=== PATIENT | male | born 1950 | race Caucasian/White ===

== ENCOUNTER → 2017-01-21 | Outpatient (CLI) | payer MEDICARE, BC, OTHER ==
--- NOTE | 2017-01-21 11:57 | ECGEPIP ---
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
[2017-01-21 12:07] LABS: ANION GAP 10 MEQ/L (8-16); BLOOD UREA NITROGEN 17 MG/DL (7-18); CARBON DIOXIDE LEVEL 28 MEQ/L (21-32); CHLORIDE LEVEL 103 MEQ/L (98-107); CREATININE FOR GFR 1.02 MG/DL (0.70-1.30); GLOMERULAR FILTRATION RATE > 60.0 (>49); GLUCOSE, FASTING 162 MG/DL (80-110); POTASSIUM SERUM 4.4 MEQ/L (3.5-5.1); SODIUM LEVEL 141 MEQ/L (136-145)
== END ==
LOC: M LAB 10:38
PROVIDERS: ATTEND Ophthalmology
DX: Z01.818 Encounter for other preprocedural examination (principal); H25.12 Age-related nuclear cataract, left eye; I48.91 Unspecified atrial fibrillation

== ENCOUNTER → 2017-02-12 | Day surgery (SDC) | payer MEDICARE, BC, OTHER ==
[~2017-02-12] VITALS: Ht 170.2 cm; Wt 83.9 kg
[~2017-02-12] MED LIST: ACETYLCHOLINE OPHTH SOLN 1% 2ML As Ordered ONE; AMLO5TAB2 PO; ATOR1TAB21 PO; BALANCED SALT IRRIGATION SOLUTION 500ML BAG (FOR OR EYE MACHINE) As Ordered ONE; CARV12.5 PO; CEFUROXIME 1MG/0.1ML INTRACAMERAL INJ As Ordered ONE; D5W/0.2% SODIUM CHLORIDE 1,000 ML IV SCH; DIGO0.12 PO; ELIQ5TAB PO; HEALON DUET (HEALON 10MG/ML 0.55ML & HEALON ENDOCOAT 30MG/ML 0.85ML) As Ordered ONE; LIDOCAINE 0.75%/EPINEPHRINE 0.025% IN BSS 1ML SYR INTRACAMERAL (OR ONLY) As Ordered ONE; LISI10TA4 PO; MIDAZOLAM INJ 2 MG/2 ML VIAL (J2250) As Ordered ONE; OFLOXACIN 0.3 % (OCUFLOX) OPTH SOL 5ML OS ONE; PANT40TA2 PO; PARO10TA84 PO; PHENYLEPHRINE 2.5% OPHTH SOL 2ML OS ONE; POVIDONE-IODINE 5% OPHTH PREP SOL 30ML As Ordered ONE; PROA1AER INH; PROPARACAINE 0.5% OPHTH SOL 15ML OS ONE; QVAR0.07 IN; TOBRADEX OPHTH OINT 3.5 GM As Ordered ONE; TROPICAMIDE 1% OPHTH SOLN 2 ML OS ONE; VITA50003 PO; fentaNYL 100 MCG/2 ML INJECTION (J3010) As Ordered ONE
[2017-02-12 12:30] VITALS: BP 135/81
--- NOTE | 2017-02-12 18:21 | RO ---
DATE OF PROCEDURE: 02/12/2017 PREOPERATIVE DIAGNOSIS: Visually significant nuclear sclerotic cataract left eye. POSTOPERATIVE DIAGNOSIS: Visually significant nuclear sclerotic cataract left eye. PROCEDURE: Cataract extraction with use of phacoemulsification and placement of intraocular lens Jose Luis [id number] 21.5 diopters, left eye. SURGEON: Guy Chen DO CHANNELING MACHINE RUNNER: ANESTHESIA: Local with monitored anesthesia care (MAC). COMPLICATIONS: None. POSTOPERATIVE CONDITION: Stable. INDICATION FOR SURGERY: Blurred vision left eye affecting patient's activities of daily living. DESCRIPTION OF PROCEDURE: The patient was seen in the preoperative area and properly identified. The correct operative eye was identified and marked. Attention was turned to that eye. The patient received topical antibiotics in the preoperative area. The patient then received topical dilating drops consisting of tropicamide and phenylephrine. The patient was then transferred to the operating room. The correct side was reidentified. The patient received topical anesthetics and antibiotics on the surface of the eye. The eye was prepped and draped in a sterile fashion. The upper and lower eyelids were isolated with Tegaderm tape, and the lids were held open with an adjustable speculum. Using a sideport blade, a paracentesis incision was made. Intraocular preservative-free lidocaine was then injected into the anterior chamber. Viscoelastic was then injected into the anterior chamber through the paracentesis. Using a 2.65 mm sharp-tipped keratome, the anterior chamber was entered via a temporal clear corneal incision. A continuous curvilinear capsulorrhexis was created with the aid of a 26-gauge cystotome and Utrata forceps. Hydrodissection was performed with balanced salt solution (BSS) on a blunt cannula until the nucleus was freely mobile. The crystalline lens was phacoemulsified and aspirated. Additional cohesive viscoelastic was placed into the capsular bag to deepen it. A Jose Luis [id number] 21.5 diopter lens was placed into the capsular bag and confirmed by visualizing the continuous curvilinear capsulorrhexis. Additional irrigation and aspiration was used to remove cortical material and remaining viscoelastic. The clear corneal incision was hydrated with BSS on a blunt cannula. The lens was well positioned. The incisions were then tested for leaks and found to be negative. The eye was then palpated for appropriate pressure and adjusted accordingly with BSS. Cefuroxime, 0.5cc was placed into the anterior chamber. The eyelid speculum was then carefully removed. Tobradex ointment was placed in the eye. An eye patch and shield were then secured over the eye. The patient tolerated the procedure well and was discharged to the recovery unit in a stable condition. LEI
== END | disposition home or self-care (01) ==
LOC: M SDC 09:42
PROVIDERS: ATTEND Ophthalmology
DX: H25.12 Age-related nuclear cataract, left eye (principal); J45.909 Unspecified asthma, uncomplicated; G47.33 Obstructive sleep apnea (adult) (pediatric); E78.5 Hyperlipidemia, unspecified; E11.9 Type 2 diabetes mellitus without complications; K21.9 Gastro-esophageal reflux disease without esophagitis; F41.9 Anxiety disorder, unspecified; F32.9 Major depressive disorder, single episode, unspecified; J30.9 Allergic rhinitis, unspecified; G47.00 Insomnia, unspecified; I48.91 Unspecified atrial fibrillation; I10 Essential (primary) hypertension; E55.9 Vitamin D deficiency, unspecified; M12.9 Arthropathy, unspecified; R06.83 Snoring; Z79.899 Other long term (current) drug therapy; Z87.891 Personal history of nicotine dependence
CPT/HCPCS: 66984; J2250; J3010; V2632

== ENCOUNTER → 2017-06-27 | Outpatient (CLI) | payer MEDICARE, BC, OTHER ==
[~2017-06-27] MED LIST changes: -ACETYLCHOLINE OPHTH SOLN 1% 2ML As Ordered ONE; -BALANCED SALT IRRIGATION SOLUTION 500ML BAG (FOR OR EYE MACHINE) As Ordered ONE; -CEFUROXIME 1MG/0.1ML INTRACAMERAL INJ As Ordered ONE; -D5W/0.2% SODIUM CHLORIDE 1,000 ML IV SCH; -HEALON DUET (HEALON 10MG/ML 0.55ML & HEALON ENDOCOAT 30MG/ML 0.85ML) As Ordered ONE; -LIDOCAINE 0.75%/EPINEPHRINE 0.025% IN BSS 1ML SYR INTRACAMERAL (OR ONLY) As Ordered ONE; -MIDAZOLAM INJ 2 MG/2 ML VIAL (J2250) As Ordered ONE; -OFLOXACIN 0.3 % (OCUFLOX) OPTH SOL 5ML OS ONE; +PARO10TA3 PO; -PARO10TA84 PO; -PHENYLEPHRINE 2.5% OPHTH SOL 2ML OS ONE; -POVIDONE-IODINE 5% OPHTH PREP SOL 30ML As Ordered ONE; -PROA1AER INH; +PROAAER10 INH; -PROPARACAINE 0.5% OPHTH SOL 15ML OS ONE; -TOBRADEX OPHTH OINT 3.5 GM As Ordered ONE; -TROPICAMIDE 1% OPHTH SOLN 2 ML OS ONE; +VITA1CAP40 PO; -VITA50003 PO; -fentaNYL 100 MCG/2 ML INJECTION (J3010) As Ordered ONE
[2017-06-27 20:20] LABS: ANION GAP 9 MEQ/L (8-16); BLOOD UREA NITROGEN 17 MG/DL (7-18); CALCIUM LEVEL 9.2 MG/DL (8.8-10.2); CARBON DIOXIDE LEVEL 30 MEQ/L (21-32); CHLORIDE LEVEL 101 MEQ/L (98-107); CHOLESTEROL LEVEL 187 MG/DL (<200); CREATININE FOR GFR 0.94 MG/DL (0.70-1.30); GLOMERULAR FILTRATION RATE > 60.0 (>49); GLUCOSE, FASTING 112 MG/DL (80-110); POTASSIUM SERUM 4.8 MEQ/L (3.5-5.1); SODIUM LEVEL 140 MEQ/L (136-145); TRIGLYCERIDES LEVEL 403 MG/DL (<150)
== END ==
LOC: M ADAMS 13:31
PROVIDERS: ATTEND Physician Assistant Medical
DX: E11.9 Type 2 diabetes mellitus without complications (principal)

== ENCOUNTER → 2017-08-06 | Outpatient (REF) | payer MEDICARE, BC, OTHER | LOC: M LAB REF 12:12 | PROVIDERS: ATTEND Surgery | DX: L72.3 Sebaceous cyst (principal) ==

== ENCOUNTER → 2017-12-29 | Outpatient (REF) | payer MEDICARE, BC, OTHER ==
[2017-12-29 20:06] LABS: BASO % 0.2 % (0.0-1.0); EOS # 0.1 10^3/uL (0.0-0.50); EOS % 1.2 % (0.0-3.0); HEMATOCRIT 45.2 % (42.0-52.0); HEMOGLOBIN 15.1 g/dl (14.0-18.0); IMMATURE GRANULOCYTE # 0.1 10^3/uL (0-0); IMMATURE GRANULOCYTE % 0.7 % (0-0); LYMPH # 1.9 10^3/uL (1.5-4.5); LYMPH % 21.4 % (24.0-44.0); MEAN CORPUSCULAR HEMOGLOBIN 29.5 pg (27.0-33.0); MEAN CORPUSCULAR HGB CONC 33.4 g/dl (32.0-36.5); MEAN CORPUSCULAR VOLUME 88.3 fl (80.0-96.0); MONO # 0.6 10^3/uL (0.0-0.8); MONO % 7.1 % (0.0-5.0); NEUTROPHILS # 6.3 10^3/uL (1.8-7.7); NEUTROPHILS % 69.4 % (36.0-66.0); PLATELET COUNT, AUTOMATED 260 10^3/uL (150-450); RED BLOOD COUNT 5.12 10^6/uL (4.30-6.10); RED CELL DISTRIBUTION WIDTH 12.6 % (11.5-14.5)
[2017-12-29 20:22] LABS: ANION GAP 5 MEQ/L (8-16); BLOOD UREA NITROGEN 14 MG/DL (7-18); CALCIUM LEVEL 8.9 MG/DL (8.8-10.2); CARBON DIOXIDE LEVEL 33 MEQ/L (21-32); CHLORIDE LEVEL 102 MEQ/L (98-107); CREATININE FOR GFR 1.02 MG/DL (0.70-1.30); GLOMERULAR FILTRATION RATE > 60.0 (>49); GLUCOSE, FASTING 165 MG/DL (70-100); POTASSIUM SERUM 4.9 MEQ/L (3.5-5.1); SODIUM LEVEL 140 MEQ/L (136-145)
[2017-12-29 20:35] LABS: ESTIMATED AVERAGE GLUCOSE 163 MG/DL (60-110); HEMOGLOBIN A1c 7.3 %
[2017-12-29 21:02] LABS: MAU/CREAT RATIO 64.7 MCG/MG (0.0-30.0)
== END ==
LOC: M LABDRWAD 19:36
DX: E78.5 Hyperlipidemia, unspecified (principal); E11.9 Type 2 diabetes mellitus without complications; Z79.899 Other long term (current) drug therapy
CPT/HCPCS: 83036

== ENCOUNTER → 2018-06-21 | Outpatient (CLI) | payer MEDICARE, BC, OTHER ==
[2018-06-21 20:34] LABS: ANION GAP 8 MEQ/L (8-16); BLOOD UREA NITROGEN 18 MG/DL (7-18); CALCIUM LEVEL 9.1 MG/DL (8.8-10.2); CARBON DIOXIDE LEVEL 30 MEQ/L (21-32); CHLORIDE LEVEL 103 MEQ/L (98-107); CHOLESTEROL LEVEL 170 MG/DL (<200); CHOLESTEROL RISK RATIO 3.695 (<5); CREATININE FOR GFR 1.36 MG/DL (0.70-1.30); GLOMERULAR FILTRATION RATE 55.8 (>49); GLUCOSE, FASTING 92 MG/DL (70-100); HDL CHOLESTEROL 46 MG/DL (>40); LDL CHOLESTEROL 58.8 MG/DL (<100); NON-HDL-C 124 MG/DL; POTASSIUM SERUM 4.1 MEQ/L (3.5-5.1); SODIUM LEVEL 141 MEQ/L (136-145); TRIGLYCERIDES LEVEL 326 MG/DL (<150)
[2018-06-21 20:37] LABS: ESTIMATED AVERAGE GLUCOSE 163 MG/DL (60-110); HEMOGLOBIN A1c 7.3 %
[2018-06-22 13:21] LABS: MALB URINE SIEMENS 30.6 MG/L; MAU/CREAT RATIO 16.1 MCG/MG (0.0-30.0)
== END ==
LOC: M ADAMS 15:10
DX: E11.9 Type 2 diabetes mellitus without complications (principal); I10 Essential (primary) hypertension; E78.5 Hyperlipidemia, unspecified
CPT/HCPCS: 83036

== ENCOUNTER → 2018-09-23 | Outpatient (REF) | payer MEDICARE, BC, OTHER ==
[2018-09-23 14:51] LABS: ANION GAP 7 MEQ/L (8-16); BLOOD UREA NITROGEN 14 MG/DL (7-18); CALCIUM LEVEL 8.8 MG/DL (8.8-10.2); CARBON DIOXIDE LEVEL 32 MEQ/L (21-32); CHLORIDE LEVEL 101 MEQ/L (98-107); CHOLESTEROL LEVEL 188 MG/DL (<200); CHOLESTEROL RISK RATIO 4.177 (<5); CREATININE FOR GFR 0.94 MG/DL (0.70-1.30); GLOMERULAR FILTRATION RATE > 60.0 (>49); GLUCOSE, FASTING 177 MG/DL (70-100); HDL CHOLESTEROL 45 MG/DL (>40); LDL CHOLESTEROL 88 MG/DL (<100); NON-HDL-C 143 MG/DL; POTASSIUM SERUM 4.3 MEQ/L (3.5-5.1); SODIUM LEVEL 140 MEQ/L (136-145); TRIGLYCERIDES LEVEL 276 MG/DL (<150)
[2018-09-23 14:58] LABS: ESTIMATED AVERAGE GLUCOSE 180 MG/DL (60-110); HEMOGLOBIN A1c 7.9 %
== END ==
LOC: M LABDRWAD 14:34
DX: E11.69 Type 2 diabetes mellitus with other specified complication (principal); E78.5 Hyperlipidemia, unspecified; I10 Essential (primary) hypertension
CPT/HCPCS: 83036

== ENCOUNTER → 2018-12-28 | Outpatient (REF) | payer MEDICARE, OTHER ==
[~2018-12-28] MED LIST changes: -AMLO5TAB2 PO; +AMLO5TAB6 PO; -PANT40TA2 PO; +PANT40TA3 PO; -QVAR0.07 IN; +QVAR40AE13 IN; -VITA1CAP40 PO; +VITA50005 PO
[2018-12-28 20:04] LABS: BLOOD UREA NITROGEN 15 MG/DL (7-18); CALCIUM LEVEL 9.1 MG/DL (8.8-10.2); CARBON DIOXIDE LEVEL 30 MEQ/L (21-32); CHLORIDE LEVEL 102 MEQ/L (98-107); CREATININE FOR GFR 0.97 MG/DL (0.70-1.30); GLOMERULAR FILTRATION RATE > 60.0 (>49); GLUCOSE, FASTING 152 MG/DL (70-100); SODIUM LEVEL 139 MEQ/L (136-145)
[2018-12-28 20:22] LABS: HEMOGLOBIN A1c 7.2 %
== END ==
LOC: M LABDRWAD 18:53
PROVIDERS: ATTEND Physician Assistant Medical
DX: E11.69 Type 2 diabetes mellitus with other specified complication (principal)

== ENCOUNTER 2019-03-08 10:42 | Day surgery (SDC) | payer MEDICARE, OTHER, BC ==
[~2019-03-08] VITALS: Ht 170.2 cm; Wt 82.1 kg
[~2019-03-08 10:42] MED LIST changes: +JANU100T PO; +NS 1,000 ML IV ONE; +QVAR40AE12 INH
[2019-03-08] MEDS ORDERED: LIDOCAINE 2% INJ 100 MG/5 ML SDV (FOR ANES.) As Ordered ONE (11:48)
[2019-03-08] MEDS ORDERED: PROPOFOL 200 MG/20 ML VIAL As Ordered ONE (11:48)
[2019-03-08] MEDS ORDERED: METOPROLOL 5 MG/5 ML VIAL As Ordered ONE (12:06)
--- NOTE | 2019-03-08 12:22 | ROOR ---
Patient Name: Zhou Dinh Procedure Date: 03/08/2019 12:03 PM Date of : 1950 Age: 69 Room: [facility] Gender: Male Note Status: Finalized Procedure: Upper Endoscopy + Biopsies Indications: Dysphagia, Heartburn, Exclusion of Chavez's esophagus Providers: Anuj Chen MD Referring MD: MESSI JONES Requesting Provider: Medicines: Monitored Anesthesia Care Complications: No immediate complications. Procedure: Pre-Anesthesia Assessment: - The heart rate, respiratory rate, oxygen saturations, blood pressure, adequacy of pulmonary ventilation, and response to care were monitored throughout the procedure. The Endoscope was introduced through the mouth, and advanced to the second part of duodenum. The upper GI endoscopy was accomplished without difficulty. The patient tolerated the procedure well. Findings: The Z-line was variable and was found 38 cm from the incisors. Multiple biopsies were obtained with cold forceps for evaluation to rule out Chavez's Esophagus randomly at the gastroesophageal junction. A small hiatal hernia was present. Multiple medium pedunculated and sessile fundic gland polyps with no stigmata of recent bleeding were found in the stomach. Biopsies were taken with a cold forceps for histology. The exam of the duodenum was otherwise normal. Impression: - Z-line variable, 38 cm from the incisors. - Small hiatal hernia. - Multiple fundic gland polyps. Biopsied. - Multiple biopsies were obtained at the gastroesophageal junction. - The examination was otherwise normal. Recommendation: - Await pathology results. - Discharge patient to home. - Continue present medications. - Await pathology results. - Telephone GI clinic for pathology results in 1 week. - Return to referring physician. - Follow an antireflux regimen. - Check Portal Online for Path Results.([email or web address]) - The findings and recommendations were discussed with the patient's family. Anuj Chen MD Anuj Chen MD 03/08/2019 12:22:03 PM Electronically signed by Anuj Chen MD Number of Addenda: 0 Note Initiated On: 03/08/2019 12:03 PM Estimated Blood Loss: Estimated blood loss: none.
[2019-03-08 12:50] VITALS: BP 162/83
== END 2019-03-08 13:01 | disposition home or self-care (01) ==
LOC: M OPP 10:42
PROVIDERS: ATTEND Internal Medicine Gastroenterology
DX: K22.8 Other specified diseases of esophagus (principal); K44.9 Diaphragmatic hernia without obstruction or gangrene; K31.7 Polyp of stomach and duodenum; R13.10 Dysphagia, unspecified; R12 Heartburn

== ENCOUNTER → 2019-04-27 | Outpatient (REF) | payer MEDICARE, OTHER, BC ==
[~2019-04-27] MED LIST changes: -NS 1,000 ML IV ONE
[2019-04-27 13:29] LABS: BLOOD UREA NITROGEN 20 MG/DL (7-18); CALCIUM LEVEL 8.8 MG/DL (8.8-10.2); CARBON DIOXIDE LEVEL 30 MEQ/L (21-32); CHLORIDE LEVEL 104 MEQ/L (98-107); CHOLESTEROL LEVEL 197 MG/DL (<200); CHOLESTEROL RISK RATIO 4.477 (<5); CREATININE FOR GFR 0.84 MG/DL (0.70-1.30); GLOMERULAR FILTRATION RATE > 60.0 (>49); GLUCOSE, FASTING 159 MG/DL (70-100); HDL CHOLESTEROL 44 MG/DL (>40); LDL CHOLESTEROL 75 MG/DL (<100); NON-HDL-C 153 MG/DL; POTASSIUM SERUM 4.4 MEQ/L (3.5-5.1); SODIUM LEVEL 139 MEQ/L (136-145); TRIGLYCERIDES LEVEL 388 MG/DL (<150)
[2019-04-27 13:48] LABS: CREATININE, URINE 51.8 MG/DL; MAU/CREAT RATIO 13.5 MCG/MG (0.0-30.0)
[2019-04-27 15:17] LABS: HEMOGLOBIN A1c 6.6 %
== END ==
LOC: M LABDRWAD 12:13
PROVIDERS: ATTEND Physician Assistant Medical
DX: E11.40 Type 2 diabetes mellitus with diabetic neuropathy, unspecified (principal); E78.5 Hyperlipidemia, unspecified

== ENCOUNTER → 2019-05-16 | Outpatient (CLI) | payer MEDICARE, OTHER, BC ==
[~2019-05-16] MED LIST changes: +ACET-683 PO; +INVO100T PO; +PERC5TAB12 PO; +TIZA4TAB4 PO; +TRAZ-252 PO; +VALA1TAB2 PO
--- NOTE | 2019-05-16 13:45 | REP ---
Clinical: Pain. Technique: AP, lateral, bilateral oblique views of the left hand. Comparison: None. Findings: The advanced osteoarthritic degenerative changes involving the first and second carpometacarpal joints includes cortical irregularity and contour deformity to the osseous structures with elements of heterotopic ossification and subluxation. Old ulnar styloid fracture. Remainder of the examination demonstrates mild generalized age-related changes. Impression: Advanced osteoarthritic changes primarily involving the first and second carpometacarpal joints. Electronically Signed by Colin Mills MD 05/16/2019 01:37 P
--- NOTE | 2019-05-16 15:44 | REP ---
Right elbow for views: There are no comparisons. I suspect soft tissue swelling posteriorly at the olecranon. This should be confirmed clinically. Mineralization and joint spaces are normal. There is no fracture or dislocation. No calcifications or foreign bodies. Impression: Soft tissue swelling posteriorly at the olecranon is suspected. This should be confirmed clinically. Otherwise, negative right elbow. Electronically Signed by Ajith Sanchez MD 05/16/2019 03:35 P
== END ==
LOC: M ADAMS 12:55
PROVIDERS: ATTEND Physician Assistant
DX: M25.521 Pain in right elbow (principal); M19.042 Primary osteoarthritis, left hand

== ENCOUNTER 2019-05-23 14:29 | Emergency (ER) | payer MEDICARE, BC, OTHER ==
[~2019-05-23] VITALS: Ht 170.2 cm; Wt 82.3 kg
[~2019-05-23 14:29] MED LIST changes: -ACET-683 PO; -INVO100T PO; -PERC5TAB12 PO; -TIZA4TAB4 PO; -TRAZ-252 PO; -VALA1TAB2 PO
[2019-05-23] MEDS ORDERED: TIZA4TAB4 PO (14:58)
[2019-05-23] MEDS ORDERED: TRAZ-252 PO (14:58)
[2019-05-23] MEDS ORDERED: ACET-683 PO (14:58)
[2019-05-23] MEDS ORDERED: INVO100T PO (14:58)
--- NOTE | 2019-05-23 16:20 | REP ---
CT BRAIN WITHOUT IV CONTRAST: CT brain was performed without IV contrast. Comparison 02/18/2013. There is mild atrophy. There is no midline shift or mass effect. There are mild chronic periventricular small vessel ischemic changes. There is no acute intracranial hemorrhage or extra-axial fluid collection. No skull fracture is seen. Visualized paranasal sinuses and mastoid air cells are clear. IMPRESSION: No acute intracranial hemorrhage, extra-axial fluid collection or skull fracture. Mild periventricular small vessel ischemic changes and mild atrophy. Electronically Signed by Ajith Alan MD 05/23/2019 04:26 P
--- NOTE | 2019-05-23 16:23 | REP ---
CT CERVICAL SPINE: CT cervical spine was performed in the axial plane. Sagittal and coronal reconstruction images are performed. There is no compression fracture or malalignment. There is normal cervical lordosis. Large spurs are seen at C4 through C7 with mild to moderate intervening disc space narrowing and subchondral sclerosis. There is mild posterior osteophytic ridging at these levels as well. No prevertebral soft tissue swelling is seen. No abnormal densities are seen in the spinal canal. IMPRESSION: Diffuse degenerative changes. No fracture or dislocation. Electronically Signed by Ajith Alan MD 05/23/2019 04:27 P
[2019-05-23] MEDS ORDERED: PERC5TAB12 PO (17:20)
[2019-05-23] MEDS ORDERED: VALA1TAB2 PO (17:20)
[2019-05-23 17:29] VITALS: BP 149/83
[2019-05-23] MEDS ORDERED: PERCOCET 5MG/325MG TAB PO ONE (17:30)
[2019-05-23] MEDS ORDERED: valACYclovir HCL 500 MG TAB PO ONE (17:30)
== END 2019-05-23 17:33 | disposition home or self-care (01) ==
LOC: M ED 14:29
DX: R51 Headache (principal); W13.2XXA Fall from, out of or through roof, initial encounter; Y92.9 Unspecified place or not applicable; Y93.9 Activity, unspecified; B02.9 Zoster without complications; I10 Essential (primary) hypertension; J44.9 Chronic obstructive pulmonary disease, unspecified; Z79.51 Long term (current) use of inhaled steroids; Z79.899 Other long term (current) drug therapy; Z86.79 Personal history of other diseases of the circulatory system

== ENCOUNTER → 2019-06-08 | Outpatient (CLI) | payer MEDICARE, BC, OTHER ==
[~2019-06-08] MED LIST changes: +ACET-683 PO; +INVO100T PO; +PERC5TAB12 PO; +TIZA4TAB4 PO; +TRAZ-252 PO; +VALA1TAB2 PO
[2019-06-08 18:33] LABS: BASO % 0.4 % (0.0-1.0); EOS # 0.1 10^3/uL (0.0-0.50); EOS % 1.4 % (0.0-3.0); HEMATOCRIT 47.5 % (42.0-52.0); LYMPH # 2.5 10^3/uL (1.5-4.5); LYMPH % 29.3 % (24.0-44.0); MEAN CORPUSCULAR HEMOGLOBIN 30.4 pg (27.0-33.0); MEAN CORPUSCULAR HGB CONC 33.7 g/dl (32.0-36.5); MEAN CORPUSCULAR VOLUME 90.1 fl (80.0-96.0); MONO # 0.6 10^3/uL (0.0-0.8); MONO % 6.6 % (0.0-5.0); NEUTROPHILS # 5.2 10^3/uL (1.8-7.7); NEUTROPHILS % 61.7 % (36.0-66.0); PLATELET COUNT, AUTOMATED 263 10^3/uL (150-450); RED BLOOD COUNT 5.27 10^6/uL (4.30-6.10); WHITE BLOOD COUNT 8.5 10^3/uL (4.0-10.0)
[2019-06-08 19:13] LABS: ERYTHROCYTE SEDIMENTATION RATE 4 mm/hr (0-20)
[2019-06-08 19:23] LABS: HEMOGLOBIN A1c 6.5 %
[2019-06-08 20:08] LABS: ALT/SGPT 24 U/L (12-78); BILIRUBIN,TOTAL 0.5 MG/DL (0.2-1.0); BLOOD UREA NITROGEN 17 MG/DL (7-18); CALCIUM LEVEL 9.4 MG/DL (8.8-10.2); CARBON DIOXIDE LEVEL 32 MEQ/L (21-32); CHLORIDE LEVEL 103 MEQ/L (98-107); CREATININE FOR GFR 0.83 MG/DL (0.70-1.30); GLOMERULAR FILTRATION RATE > 60.0 (>49); GLUCOSE, FASTING 137 MG/DL (70-100); POTASSIUM SERUM 3.9 MEQ/L (3.5-5.1); RHEUMATOID FACTOR QUANT < 10.0 IU/ML (<15.0); SODIUM LEVEL 140 MEQ/L (136-145); THYROID STIMULATING HORMONE 0.981 uIU/ML (0.358-3.740); TOTAL PROTEIN 7.3 GM/DL (6.4-8.2); VITAMIN B12 LEVEL 596 PG/ML (247-911)
[2019-06-09 12:25] LABS: ALBUMIN 4.39 GM/DL (3.29-5.55); ALBUMIN % 60.2 % (55.8-66.1); ALPHA-1-GLOBULIN % 3.7 % (2.9-4.9); ALPHA-1-GLOBULINS 0.27 GM/DL (0.17-0.41); ALPHA-2-GLOBULINS 0.65 GM/DL (0.42-0.99); ALPHA-2-GLOBULINS % 8.9 % (7.1-11.8); BETA-1-GLOBULINS 0.39 GM/DL (0.28-0.60); BETA-1-GLOBULINS % 5.3 % (4.7-7.2); BETA-2-GLOBULINS 0.43 GM/DL (0.19-0.55); BETA-2-GLOBULINS % 5.9 % (3.2-6.5); GAMMA GLOBULINS 1.17 GM/DL (0.65-1.58)
[2019-06-11 00:06] LABS: Lyme Disease IgG/IgM Antibodie <0.91 ISR (0.00-0.90); Lyme Disease IgM Ab Quantitati <0.80 index (0.00-0.79)
[2019-06-14 10:51] LABS: DRVV SCREEN 54.6 SEC
[2019-06-14 11:08] LABS: PTT LUPUS TYPE ANTICOAG SCREEN 1.3 (0-1.2)
[2019-06-14 11:15] LABS: DRVV CONFIRM 48.4 SEC; LUPUS CONFIRM RATIO 1.3
[2019-06-15 14:07] LABS: ANCA-ATYPICAL <1:20 titer (Neg:<1:20); ANTI DS-DNA AB <1:10 titer (.); ANTINUCLEAR ANTIBODIES DIRECT Negative (Negative); CERULOPLASMIN 20.5 mg/dL (16.0-31.0); COPPER PLASMA 81 ug/dL (72-166); CYTOPLASMIC NEUTROP AB ANCA-C <1:20 titer (Neg:<1:20); LEAD BLOOD ADULT 2 ug/dL (0-4); MERCURY LEVEL None Detected ug/L (0.0-14.9); PERINUCLEAR AB ANCA-P <1:20 titer (Neg:<1:20); SJOGREN'S ANTI SS-A <0.2 AI (0.0-0.9); SJOGREN'S ANTI SS-B <0.2 AI (0.0-0.9); VITAMIN B1 LEVEL WHOLE BLOOD 165.1 nmol/L (66.5-200.0); VITAMIN B6,PYRIDOXAL PHOSPHATE 7.8 ug/L (5.3-46.7); VITAMIN E(ALPHA TOCOPHEROL) 16.9 mg/L (9.0-29.0); VITAMIN E(GAMMA TOCOPHEROL) 3.5 mg/L (0.5-4.9)
== END ==
LOC: M LABDRWAD 15:13
PROVIDERS: ATTEND Psychiatry & Neurology Neurology
DX: G62.9 Polyneuropathy, unspecified (principal); Z79.899 Other long term (current) drug therapy; Z79.01 Long term (current) use of anticoagulants

== ENCOUNTER → 2020-03-13 | Outpatient (REF) | payer MEDICARE, OTHER ==
[~2020-03-13] MED LIST changes: +DIGO0.123 PO; -VALA1TAB2 PO; +VALA1TAB5 PO
[2020-03-13 17:17] LABS: BASO % 0.4 % (0.0-1.0); EOS # 0.1 10^3/uL (0.0-0.5); EOS % 1.2 % (0.0-3.0); HEMATOCRIT 48.4 % (42.0-52.0); HEMOGLOBIN 16.3 g/dl (13.5-17.5); LYMPH # 1.9 10^3/uL (1.5-5.0); LYMPH % 25.1 % (24.0-44.0); MEAN CORPUSCULAR HEMOGLOBIN 29.7 pg (27.0-33.0); MEAN CORPUSCULAR HGB CONC 33.7 g/dl (32.0-36.5); MEAN CORPUSCULAR VOLUME 88.3 fl (80.0-96.0); MONO # 0.6 10^3/uL (0.0-0.8); MONO % 8.5 % (0.0-5.0); NEUTROPHILS # 4.8 10^3/uL (1.5-8.5); NEUTROPHILS % 64.1 % (36.0-66.0); PLATELET COUNT, AUTOMATED 223 10^3/uL (150-450); RED BLOOD COUNT 5.48 10^6/uL (4.30-6.10); WHITE BLOOD COUNT 7.4 10^3/uL (4.0-10.0)
[2020-03-13 17:22] LABS: ALT/SGPT 21 U/L (12-78); BLOOD UREA NITROGEN 16 MG/DL (7-18); CALCIUM LEVEL 9.3 MG/DL (8.8-10.2); CARBON DIOXIDE LEVEL 32 MEQ/L (21-32); CHLORIDE LEVEL 101 MEQ/L (98-107); CHOLESTEROL LEVEL 184 MG/DL (<200); CHOLESTEROL RISK RATIO 3.607 (<5); CREATININE FOR GFR 0.85 MG/DL (0.70-1.30); GLOMERULAR FILTRATION RATE > 60.0 (>49); GLUCOSE, FASTING 128 MG/DL (70-100); HDL CHOLESTEROL 51 MG/DL (>40); LDL CHOLESTEROL 88 MG/DL (<100); NON-HDL-C 133 MG/DL; POTASSIUM SERUM 4.2 MEQ/L (3.5-5.1); SODIUM LEVEL 137 MEQ/L (136-145); TOTAL PROTEIN 7.4 GM/DL (6.4-8.2); TRIGLYCERIDES LEVEL 225 MG/DL (<150)
[2020-03-13 17:48] LABS: HEMOGLOBIN A1c 6.7 %
[2020-03-13 17:54] LABS: MALB URINE SIEMENS 9.4 MG/L; MAU/CREAT RATIO 14.6 MCG/MG (0.0-30.0)
== END ==
LOC: M LABDRWAD 16:21
PROVIDERS: ATTEND Physician Assistant
DX: E11.40 Type 2 diabetes mellitus with diabetic neuropathy, unspecified (principal); E78.5 Hyperlipidemia, unspecified; G47.33 Obstructive sleep apnea (adult) (pediatric)

== ENCOUNTER → 2021-01-04 | Outpatient (REF) | payer MEDICARE, OTHER ==
[~2021-01-04] MED LIST changes: +AMLO1TAB24 PO; -AMLO5TAB6 PO; +LISI10TA22 PO; -LISI10TA4 PO; +PANT40TA29 PO; -PANT40TA3 PO
[2021-01-04 18:01] LABS: INR 1.07; PROTHROMBIN TIME 14.1 SECONDS (12.5-14.3)
[2021-01-04 18:06] LABS: HEMOGLOBIN A1c 6.4 %
[2021-01-04 18:09] LABS: ALT/SGPT 23 U/L (12-78); BLOOD UREA NITROGEN 21 MG/DL (7-18); CALCIUM LEVEL 8.8 MG/DL (8.8-10.2); CARBON DIOXIDE LEVEL 29 MEQ/L (21-32); CHLORIDE LEVEL 103 MEQ/L (98-107); CHOLESTEROL LEVEL 195 MG/DL (<200); CREATININE FOR GFR 0.95 MG/DL (0.70-1.30); GLOMERULAR FILTRATION RATE > 60.0 (>49); GLUCOSE, FASTING 120 MG/DL (70-100); HDL CHOLESTEROL 50 MG/DL (>40); LDL CHOLESTEROL 102 MG/DL (<100); NON-HDL-C 145 MG/DL; POTASSIUM SERUM 4.6 MEQ/L (3.5-5.1); SODIUM LEVEL 140 MEQ/L (136-145); TRIGLYCERIDES LEVEL 215 MG/DL (<150)
[2021-01-04 18:10] LABS: APPEARANCE, URINE CLEAR (CLEAR); BACTERIA, URINE AUTO NEGATIVE (NEGATIVE); BILIRUBIN, URINE AUTO NEGATIVE (NEGATIVE); BLOOD, URINE BLOOD NEGATIVE (NEGATIVE); COLOR, URINE YELLOW (YELLOW); GLUCOSE, URINE (UA) AUTO 3+ mg/dL (NEGATIVE); KETONE, URINE AUTO TRACE mg/dL (NEGATIVE); LEUKOCYTE ESTERASE, URINE AUTO NEGATIVE (NEGATIVE); MUCUS, URINE SMALL (NEGATIVE); NITRITE, URINE AUTO NEGATIVE (NEGATIVE); PROTEIN, URINE AUTO NEGATIVE (NEGATIVE); RBC, URINE AUTO 0 /HPF (0-3); SPECIFIC GRAVITY URINE AUTO 1.031 (1.002-1.035); SQUAMOUS EPITHELIAL CELL UR AU 0 /HPF (0-6); UROBILINOGEN, URINE AUTO 0.2 mg/dL (0.0-2.0); WBC, URINE AUTO 0 /HPF (0-3)
[2021-01-04 18:11] LABS: BASO % 0.4 % (0.0-1.0); EOS # 0.1 10^3/uL (0.0-0.5); EOS % 0.9 % (0.0-3.0); HEMOGLOBIN 16.1 g/dl (13.5-17.5); LYMPH # 1.8 10^3/uL (1.5-5.0); LYMPH % 22.7 % (24.0-44.0); MEAN CORPUSCULAR HEMOGLOBIN 30.1 pg (27.0-33.0); MEAN CORPUSCULAR HGB CONC 34.3 g/dl (32.0-36.5); MEAN CORPUSCULAR VOLUME 87.9 fl (80.0-96.0); MONO # 0.6 10^3/uL (0.0-0.8); MONO % 7.7 % (2.0-8.0); NEUTROPHILS # 5.2 10^3/uL (1.5-8.5); NEUTROPHILS % 67.5 % (36.0-66.0); PLATELET COUNT, AUTOMATED 208 10^3/uL (150-450); RED BLOOD COUNT 5.35 10^6/uL (4.30-6.10); WHITE BLOOD COUNT 7.8 10^3/uL (4.0-10.0)
== END ==
LOC: M LABDRWAD 16:11
PROVIDERS: ATTEND Nurse Practitioner Family
DX: E11.40 Type 2 diabetes mellitus with diabetic neuropathy, unspecified (principal); E78.5 Hyperlipidemia, unspecified; G47.33 Obstructive sleep apnea (adult) (pediatric); Z01.818 Encounter for other preprocedural examination
CPT/HCPCS: 36415; 80053; 80061; 81001; 83036; 85025; 85610; 85730; 87086; G0103

== ENCOUNTER → 2021-02-01 | Outpatient (REF) | payer MEDICARE, OTHER ==
[~2021-02-01] MED LIST changes: +FARX1TAB3 PO; +FLOM0.4C39 PO; +GABA600T4 PO
[2021-02-01 19:16] LABS: ALBUMIN 4.1 GM/DL (3.2-5.2); PERCENT SATURATION 44.7 % (19.7-50.0)
== END ==
LOC: M LABDRWAD 16:18
PROVIDERS: ATTEND Orthopaedic Surgery
DX: Z01.818 Encounter for other preprocedural examination (principal); M17.10 Unilateral primary osteoarthritis, unspecified knee; D50.9 Iron deficiency anemia, unspecified

== ENCOUNTER → 2021-05-29 | Outpatient (CLI) | payer MEDICARE, BC, OTHER ==
[~2021-05-29] MED LIST changes: +BARIUM SULFATE 700 MG TABLET (E-Z-DISK) As Ordered ONE; +E-Z-GAS II EFFERVESCENT PACKET (SODIUM BICARB./CITRIC ACID/SIMETHICONE) As Ordered ONE; +E-Z-HD 98% w/w 340GM SUSP BTL As Ordered ONE; +E-Z-PAQUE 96% w/w SUSP 176GM BTL As Ordered ONE; +ERGO500029 PO
--- NOTE | 2021-05-29 16:29 | REP ---
INDICATION: DYSPHAGIA. COMPARISON: None. TECHNIQUE: The procedure was performed under the direct supervision of Dr. Alan. The images were reviewed with Dr. Alan. Liquid barium and gas producing crystals were given in the erect position as well as liquid barium in the prone oblique position in order to perform a double contrast upper GI examination. A combination of fluoroscopy, spot films and last image hold technology was utilized. 1.9 minutes of fluoro time was utilized for this procedure. FINDINGS: The assistant film editor film shows no organomegaly or pathological masses. The intestinal gas pattern is non-specific. The oral and pharyngeal stages of deglutition are unremarkable. During esophageal transport there are tertiary waves demonstrated. There is no esophagitis, stricture or mucosal ring. There is a sliding-type hiatal hernia. Gastroesophageal reflux is not demonstrated on this examination. Within the stomach there are thickened folds which may represent gastritis. There is no shandra ulcer identified. There is a 9 mm diverticulum seen in the antrum of the stomach. The duodenal fuentes are normally outlined. The mucosal folds are smooth and regular. There is no duodenitis pancreatitis peptic ulcer disease or neoplasm. The visualized portion of the proximal small bowel appears normal in course and caliber. IMPRESSION: 1. Tertiary waves. 2. There is a sliding-type hiatal hernia. 3. There are thickened folds in the stomach which may represent gastritis. There is no shandra ulcer identified. There is a 9 mm diverticulum seen in the antrum of the stomach. . <Electronically signed by Reji Rollins > 05/29/21 [id number] <Electronically signed by Ajith Alan > 05/29/21 [id number]
== END ==
LOC: M RAD 09:46
PROVIDERS: ATTEND Nurse Practitioner Family
DX: R13.10 Dysphagia, unspecified (principal); K44.9 Diaphragmatic hernia without obstruction or gangrene

== ENCOUNTER → 2021-06-14 | Outpatient (REF) | payer MEDICARE, BC, OTHER ==
[~2021-06-14] MED LIST changes: -BARIUM SULFATE 700 MG TABLET (E-Z-DISK) As Ordered ONE; -E-Z-GAS II EFFERVESCENT PACKET (SODIUM BICARB./CITRIC ACID/SIMETHICONE) As Ordered ONE; -E-Z-HD 98% w/w 340GM SUSP BTL As Ordered ONE; -E-Z-PAQUE 96% w/w SUSP 176GM BTL As Ordered ONE; +TIZA10TA PO; -TIZA4TAB4 PO
[2021-06-14 13:49] LABS: HEMOGLOBIN A1c 6.2 %
[2021-06-14 13:55] LABS: ALBUMIN 3.8 GM/DL (3.2-5.2); ALT/SGPT 20 U/L (12-78); BILIRUBIN,TOTAL 0.7 MG/DL (0.2-1.0); BLOOD UREA NITROGEN 13 MG/DL (7-18); CALCIUM LEVEL 8.7 MG/DL (8.8-10.2); CARBON DIOXIDE LEVEL 33 MEQ/L (21-32); CHLORIDE LEVEL 102 MEQ/L (98-107); GLOMERULAR FILTRATION RATE > 60.0 (>49); GLUCOSE, FASTING 169 MG/DL (70-100); POTASSIUM SERUM 4.3 MEQ/L (3.5-5.1); SODIUM LEVEL 140 MEQ/L (136-145); TOTAL PROTEIN 6.9 GM/DL (6.4-8.2)
[2021-06-14 14:02] LABS: CREATININE, URINE 46.6 MG/DL; MALB URINE SIEMENS < 5.0 MG/L; MAU/CREAT RATIO 10.7 MCG/MG (0.0-30.0)
== END ==
LOC: M LABDRWAD 12:19
PROVIDERS: ATTEND Nurse Practitioner Family
DX: E11.40 Type 2 diabetes mellitus with diabetic neuropathy, unspecified (principal)

== ENCOUNTER → 2021-06-14 | Outpatient (REF) | payer MEDICARE, BC, OTHER ==
[~2021-06-14] MED LIST changes: -TIZA10TA PO; +TIZA4TAB4 PO
[2021-06-14 13:33] LABS: APPEARANCE, URINE CLEAR (CLEAR); BACTERIA, URINE AUTO NEGATIVE (NEGATIVE); BILIRUBIN, URINE AUTO NEGATIVE (NEGATIVE); BLOOD, URINE BLOOD NEGATIVE (NEGATIVE); COLOR, URINE YELLOW (YELLOW); GLUCOSE, URINE (UA) AUTO 3+ mg/dL (NEGATIVE); KETONE, URINE AUTO NEGATIVE (NEGATIVE); LEUKOCYTE ESTERASE, URINE AUTO NEGATIVE (NEGATIVE); MUCUS, URINE SMALL (NEGATIVE); NITRITE, URINE AUTO NEGATIVE (NEGATIVE); PROTEIN, URINE AUTO NEGATIVE (NEGATIVE); RBC, URINE AUTO 0 /HPF (0-3); SPECIFIC GRAVITY URINE AUTO 1.026 (1.002-1.035); SQUAMOUS EPITHELIAL CELL UR AU 0 /HPF (0-6); UROBILINOGEN, URINE AUTO 0.2 mg/dL (0.0-2.0); WBC, URINE AUTO 0 /HPF (0-3)
== END ==
LOC: M SMT 13:00
PROVIDERS: ATTEND Nurse Practitioner Family
DX: R35.0 Frequency of micturition (principal); E11.40 Type 2 diabetes mellitus with diabetic neuropathy, unspecified
CPT/HCPCS: 36415; 51798; 80053; 81001; 82043; 83036; 87086; G0463

== ENCOUNTER → 2021-09-05 | Outpatient (REF) | payer MEDICARE, BC, OTHER ==
[2021-09-05 16:55] LABS: BASO % 0.2 % (0.0-1.0); EOS # 0.1 10^3/uL (0.0-0.5); HEMATOCRIT 46.8 % (42.0-52.0); HEMOGLOBIN 15.9 g/dl (13.5-17.5); LYMPH % 23.3 % (24.0-44.0); MEAN CORPUSCULAR HEMOGLOBIN 29.9 pg (27.0-33.0); MEAN CORPUSCULAR VOLUME 88.1 fl (80.0-96.0); MONO # 0.6 10^3/uL (0.0-0.8); MONO % 7.3 % (2.0-8.0); NEUTROPHILS # 5.7 10^3/uL (1.5-8.5); NEUTROPHILS % 67.5 % (36.0-66.0); PLATELET COUNT, AUTOMATED 226 10^3/uL (150-450); RED BLOOD COUNT 5.31 10^6/uL (4.30-6.10); WHITE BLOOD COUNT 8.4 10^3/uL (4.0-10.0)
== END ==
LOC: M LABDRWAD 16:04
PROVIDERS: ATTEND Physician Assistant Surgical
DX: M25.561 Pain in right knee (principal)

== ENCOUNTER → 2021-09-10 | Outpatient (REF) | payer MEDICARE, BC, OTHER | LOC: M LABDRWAD 15:56 | PROVIDERS: ATTEND Physician Assistant Surgical | DX: M25.561 Pain in right knee (principal) ==

== ENCOUNTER → 2021-09-18 | Outpatient (CLI) | payer MEDICARE, BC, OTHER ==
--- NOTE | 2021-09-18 14:06 | REP ---
INDICATION: EARLY SATIETY GERD. COMPARISON: None. TECHNIQUE/RADIOTRACER AND DOSE: Following the intravenous administration of 1.05 mCi technetium 99 M sulfur colloid in 2 scrambled eggs and 6 oz of water, multiple images of the upper abdomen are performed in the anterior and posterior projections for 90 minutes. FINDINGS: The gastric activity is measured. At the end of 90 minutes 65% of the ingested activity has emptied from the stomach. The T1/2 is 64 minutes which is normal. IMPRESSION: Normal gastric emptying time. <Electronically signed by Ajith Alan > 09/18/21 [id number]
== END ==
LOC: M RAD 11:46
PROVIDERS: ATTEND Internal Medicine Gastroenterology
DX: R68.81 Early satiety (principal); K21.9 Gastro-esophageal reflux disease without esophagitis
CPT/HCPCS: 78264; A9541

== ENCOUNTER → 2021-10-09 | Outpatient (CLI) | payer MEDICARE, BC, OTHER | LOC: M LABSMTC 11:11 | PROVIDERS: ATTEND Anesthesiology | DX: Z01.818 Encounter for other preprocedural examination (principal); Z11.52 Encounter for screening for COVID-19 ==

== ENCOUNTER 2021-10-14 10:00 | Day surgery (SDC) | payer MEDICARE, BC, OTHER ==
[~2021-10-14] VITALS: Ht 167.6 cm; Wt 78.9 kg
[~2021-10-14 10:00] MED LIST changes: +NS 1,000 ML IV ONE
--- OUTSIDE RECORDS SUMMARY | 2021-10-14 10:03 | CCD | Continuity of Care Document ---
Author Author Zhou GAGNON [employer]ARM[employer] Organization Unknown Address [address] [place] [address] Phone [phone] Care Team Providers Care Commercial Portfolio Manager Name Role Phone [facility] - Cardiovascular Disease AUTM [phone] [facility] - Surgery AUTM [phone] [facility] Nurse Practitioners - Dermatology AUTM [phone] [facility] - Urology AUTM [phone] [facility] - Gastroenterology AUTM Problems Active Problems Provider Date Hyperlipidemia Chandrika Oliva RPA-C Onset: 03/12/20 12 Essential hypertension Chandrika Oliva RPA-C Onset: 03/12 Atrial fibrillation Chandrika Oliva RPA-C Onset: 03/12/20 12 Gastroesophageal reflux disease Chandrika Oliva RPA-C Ons et: 03/12/2012 Asthma without status asthmaticus Chandrika Oliva RPA-C O nset: 03/12/2012 Neuropathy due to type 2 diabetes mellitus Annmarie Gagnon FNP Onset: 05/15/2021 Obstructive sleep apnea syndrome Annmarie Gagnon FNP Onset: 11/14/2020 Social History Type Date Description Comments Sex Unknown Tobacco Use Start: Unknown Former Cigarette Smoker Packs Da janett 1 for 20 years Tobacco Use Start: Unknown . Quit 15 yr ago. Tobacco Use Start: Unknown Never Used Smokeless Tobacco ETOH Use Consumes 1 glass of wine per day Tobacco Use Start: Unknown End: Unknown Patient is a former smoker quit 1995, 11/26 ppd for 20 years. Recreational Drug Use Denies Drug Use Smoking Status Reviewed: 09/12/21 Patient is a former smoker qu it 1995, 1 11/26 ppd for 20 years. Exercise Type/Frequency exercises rarely Tattoo/Piercing none Sun Exposure Does not use sunscreen Seat Belt/Car Seat Always uses seat belt Bike Helmet Never does not ride Smoke Alarms Yes Smoke Alarms Carbon Monoxide Detector: Yes Allergies and adverse reactions Active Allergies Criticality Reaction | Severity Comments Date NKDA Unable to assess criticality 01/28/2011 seasonal Unable to assess criticality 03/18/2010 Medications Active Medications SIG Qnty Indications Ordering Provide r Date Trazodone HCL 100mg Tablets take 1-1 1/2 tablets by mouth at bedtime as needed for insomnia 90tabs G47.00 Annmarie Gagnon FNP 05/15/2021 Tamsulosin HCL 0.4mg Capsules take one capsule by mouth every day for prostate 90caps R35.1 Annmarie Gagnon FNP 11/14/2020 Vitamin D (Ergocalciferol) 1.25mg (59864 Ut) Capsules 1 cap by mouth every week 12caps Annmarie Gagnon FNP 02/21/2020 Farxiga 5mg Tablets 1 by mouth every day 90tabs E11.69 Annmarie Gagnon FNP 01/10/2020 Gabapentin 600mg Tablets 1 by mouth three times a day 90tabs B02.9 Angelita Parr M.D. 019 Januvia 100mg Tablets take one tablet by mouth every day 90tabs E11.9 Annmarie Gagnon FNP 12/31/2017 Proair HFA 108(90Base) mcg/Act Aer osol 2 puffs every 4 hours as needed 1units Angelita Parr M.D. 11/26/2015 Digoxin 125mcg Tablets 1 by mouth every day 90tabs Annmarie Gagnon FNP 08/09/2014 Atorvastatin Calcium 20mg Tablets 1 by mouth every day 90tabs Annmarie Gagnon FNP 03/06/2014 Amlodipine Besylate 5mg Tablets 1 by mouth every day 90tabs Annmarie Gagnon FNP 03/18/2010 Carvedilol 12.5mg Tablets take one tablet by mouth twice a day 180tabs Annmarie Gagnon FNP 2009 Pantoprazole Sodium 40mg Tablets D R take one tablet by mouth every day 90tabs Annmarie Gagnon, F SERVICING REP 03/18/2010 Paroxetine HCL 10mg Tablets take one tablet by mouth every day 90tabs Annmarie Gagnon FNP 0 03/18/2010 Lisinopril 10mg Tablets 1 by mouth every day 90tabs Annmarie Gagnon FNP 03/18/2010 Qvar 40mcg/Act Aerosol inhale bid Unknown Eliquis 5mg Tablets 2.5 mg bid for 7 days then resume 5 mg bid on 03/01/21 Unknown 0 Xopenex 10 MG 1/2 - 1 tsb by mouth once a day U nknown History Medications Amoxicillin/Clavulanate Potassium 875-125mg Tablets 1 by mouth twice a day for 10 days 20tabs J01.90 Annmarie Cisneros ch, FNP 05/15/2021 - 05/25/2021 Immunizations CPT Code Status Date Vaccine Lot # [id number] Given 09/12/2021 Influenza Virus Vaccine, Jesu drivalent,multidose vial [id number] 95532 Given 09/20/2019 Influenza Virus Vaccine, Jesu drivalent,multidose vial [id number] 73204 Given 12/30/2018 Pneumococcal Vaccine [id number] Q2038 Given 10/06/2017 Influenza Vaccine (Fluzone)( medicare) [id number] 62508 Given 10/07/2016 Prevnar 13 For Adults [id number] 66567 Given 08/27/2016 Influenza Vaccination [id number] 58022 Given 07/22/2016 Boostrix (Tdap) Tetnus, Diphtheria Toxoids & Acellular Pertussis 62885 Given 08/14/2015 Influenza Vaccination [id number] 52438 Given 08/07/2014 Influenza Vaccination [id number] 63271 Given 08/03/2013 Influenza Vaccination [id number] 89033 Given 08/17/2012 Influenza Vaccination [id number] 24877 Given 09/24/2011 Influenza Vaccination/preser vative free [id number] Vital Signs Date Vital Result Comment 09/12/2021 10:26am Body Temperature 97.3 F 05/15/2021 11:32am BP Systolic 141 mmHg BP Diastolic 84 mmHg BP Systolic Recheck 119 mmHg BP Diastolic Recheck 88 mmHg Heart Rate 94 /min Body Temperature 97.6 F Respiratory Rate 18 /min Height 68 inches 5'8" Weight 178.38 lb Peak Expiratory Flow Rate 456 Estimated Peak Flow Rate Convent Body Weight 154 lb BMI (Body Mass Index) 27.1 kg/m2 Results Test Acquired Date Facility Test Result H/L Range Note Laboratory test finding 09/10/2021 [place] [address] [phone] Erythrocyte Sedimentation Rate 2 mm/hr Normal 0 -20 CBC With Differential 09/05/2021 [place] [address] [phone] White Blood Count 8.4 10 Normal 4.0-10.0 Red Blood Count 5.31 10 Normal 4.30-6.10 Hemoglobin 15.9 g/dL Normal 13.5-17.5 Hematocrit 46.8 % Normal 42.0-52.0 Mean Corpuscular Volume 88.1 fl Normal 80.0-96.0 Mean Corpuscular Hemoglobin 29.9 pg Normal 27.0-33.0 Mean Corpuscular HGB Conc 34.0 g/dL Normal 32.0-36.5 Red Cell Distribution Width 12.6 % Normal 11.5-14.5 Platelet Count, Automated 226 10 Normal 150-450 Neutrophils % 67.5 % High 36.0-66.0 Lymph % 23.3 % Low 24.0-44.0 [place] % 7.3 % Normal 2.0-8.0 Eos % 1.0 % Normal 0.0-3.0 Baso % 0.2 % Normal 0.0-1.0 Immature Granulocyte % 0.7 % Normal 0-3.0 Nucleated Red Blood Cell % 0.0 % Normal 0-0 Neutrophils # 5.7 10 Normal 1.5-8.5 Lymph # 2.0 10 Normal 1.5-5.0 [place] # 0.6 10 Normal 0.0-0.8 Eos # 0.1 10 Normal 0.0-0.5 Baso # 0.0 10 Normal 0.0-0.2 Laboratory test finding 09/05/2021 Patient Service [place], [place] [id number] [phone] C Reactive Protein Quantitativ < 0.30 mg/dL Normal 0.00-0.30 Comprehensive Metabolic Profil 06/14/2021 [facility] [phone] Glucose, Fasting 169 mg/dL High 70-100 Blood Urea Nitrogen 13 mg/dL Normal 7-18 Creatinine For GFR 0.80 mg/dL Normal 0.70-1.30 Glomerular Filtration Rate > 60.0 Normal >49 1 Sodium Level 140 mEq/L Normal 136-145 Potassium Serum 4.3 mEq/L Normal 3.5-5.1 Chloride Level 102 mEq/L Normal 98-107 Carbon Dioxide Level 33 mEq/L High 21-32 Anion Gap 5 mEq/L Low 8-16 Calcium Level 8.7 mg/dL Low 8.8-10.2 Ast/Sgot 15 U/L Normal 7-37 Alt/SGPT 20 U/L Normal 12-78 Alkaline Phosphatase 82 U/L Normal 45-117 Bilirubin,Total 0.7 mg/dL Normal 0.2-1.0 Total Protein 6.9 GM/DL Normal 6.4-8.2 Albumin 3.8 GM/DL Normal 3.2-5.2 Albumin/Globulin Ratio 1.2 Normal Hemoglobin A1c 06/14/2021 [facility] [phone] Hemoglobin A1c 6.2 % Normal 2 Estimated Average Glucose 131 mg/dL High 60-110 Microalbumin Random [facility] [phone] Creatinine, Urine 46.6 mg/dL Normal Malb Urine Siemens < 5.0 mg/L Normal Delvis/Creat Ratio 10.7 MCG/MG Normal 0.0-30.0 3 1 Units are mL/min/1.73 m2 Chronic Kidney Disease Staging per NKF: Stage I & II GFR >=60 Normal to Mildly Decreased Stage III GFR 30-59 Moderately Decreased Stage IV GFR 15-29 Severely Decreased Stage V GFR <15 Very Little GFR Left ESRD GFR <15 on HYDROMETEOROLOGIST 2 REFERENCE RANGES: <=5.6% NORMAL 5.7-6.4% SUGGESTS IMPAIRED GLUCOSE META BOLISM/PREDIABETIC >= 6.5% ABNORMAL 3 THE [employer] ATION STATES THAT MICROALBUMINURIA IS PRESENT IF THE MICROALBUMIN/CREATININE RATIO EXCEEDS 30 MCG/MG. THE THRESHOLD FOR CLINICAL ALBUMINURIA IS REACHED AT 300 MCG/MG. THE CLASSIFICATION OF A PATIENT SHOULD BE BASED UPON AT LEAST 2 OF 3 ABNORMAL RESULTS ON SPECIMENS COLLECTED WITHIN A 3 TO 6 MONTH TIME FRAME. Procedures Date Code Description Status 05/15/2021 [id number] Diabetic Foot Exam Completed Medical Devices Description No Information Available Encounters Type Date Location Provider Dx Diagnosis Office Visit 05/15/2021 11:30a Main Office Annmarie Gagnon FNP Z00.0 0 Encntr for general adult medical exam w/o abnormal findings E11.40 Type 2 diabetes mellitus wit h diabetic neuropathy, unsp E78.5 Hyperlipidemia, unspecified I10 Essential (primary) hyperten alejandro K21.9 Gastro-esophageal reflux dis ease without esophagitis G47.33 Obstructive sleep apnea (helio lt) (pediatric) J45.909 Unspecified asthma, uncompli cated I48.20 Chronic atrial fibrillation, unspecified N40.0 Benign prostatic hyperplasia without lower urinry tract symp R13.10 Dysphagia, unspecified J01.90 Acute sinusitis, unspecified Assessments Date Code Description Provider 09/12/2021 Z23 Encounter for immunization Annmarie Mahan, [employer] 05/15/2021 Z00.00 Encounter for genera l adult medical examination without abnormal findings Angelita Parr M.D. 05/15/2021 Z00.00 Encounter for genera l adult medical examination without abnormal findings Annmarie Gagnon, [employer] 05/15/2021 E11.40 Type 2 diabetes margarito itus with diabetic neuropathy, unspecified Angelita Parr M.D. 05/15/2021 E11.40 Type 2 diabetes margarito itus with diabetic neuropathy, unspecified PleAnnmarie wallace, [employer]ER 05/15/2021 E78.5 Hyperlipidemia, unspecified Will Angelita shetty M.D. 05/15/2021 E78.5 Hyperlipidemia, unspecified Ples Annmarie mosley FNP 05/15/2021 I10 Essential (primary) hypertension Angelita Parr M.D. 05/15/2021 I10 Essential (primary) hypertension Annmarie Gagnon FNP 05/15/2021 K21.9 Gastro-esophageal reflux disease without esophagitis Angelita Parr M.D. 05/15/2021 K21.9 Gastro-esophageal reflux disease without esophagitis Annmarie Gagnon, [employer] 05/15/2021 G47.33 Obstructive sleep apnea (adult) (pediatric) Angelita Parr M.D. 05/15/2021 G47.33 Obstructive sleep apnea (adult) (pediatric) Annmarie Gagnon, [employer] 05/15/2021 J45.909 Unspecified asthma, uncomplicate d Angelita Parr M.D. 05/15/2021 J45.909 Unspecified asthma, uncomplicate d Annmarie Gagnon, [employer] 05/15/2021 I48.20 Chronic atrial fibrillation, uns pecified Angelita Parr M.D. 05/15/2021 I48.20 Chronic atrial fibrillation, uns pecified Annmarie Gagnon, [employer] 05/15/2021 N40.0 Benign prostatic hyp erplasia without lower urinary tract symptoms Angelita Parr M.D. 05/15/2021 N40.0 Benign prostatic hyp erplasia without lower urinary tract symptoms Annmarie Gagnon, [employer] 05/15/2021 R13.10 Dysphagia, unspecified Angelita Parr M.D. 05/15/2021 R13.10 Dysphagia, unspecified Annmarie Gagnon, [employer] 05/15/2021 J01.90 Acute sinusitis, unspecified Avel Angelita blanco M.D. 05/15/2021 J01.90 Acute sinusitis, unspecified Annmarie Barrow FNP Plan of Treatment Future Appointment(s):* 11/14/2021 10:30 am - Annmarie Gagnon FNP at Main Office Functional Status Functional Condition Comment Date Status Glasses reading Active Independent with all ADL's Activ e Independent with all IADL's Acti ve Hearing Aid in both ears Active Cpap Machine Not using Active Mental Status Mental Condition Comment Date Status None Active Referrals Refer to Reason for Referral Status Appt Date Anuj Chen M.D. & Associate Please evaluate hia audra hernia and possible motility disorder noted on upper gi. Thank you. Closed 08/20 [address] [place] [address] [phone] [facility] Please evaluate hiatal herni a and possible motility disorder noted on upper gi. Thank you. Closed [address] [place], [place] [id number] [phone] [facility] Please evaluate for BPH. Thank you. Closed 06/14/[address]21 [id number], [place] [address] [phone] Anuj Chen M.D. & Associate Patient need and EG D for dysphagia. Thank you. Closed 07/11/2021 [address] [place] [address] [phone]
--- OUTSIDE RECORDS SUMMARY | 2021-10-14 10:03 | CCD | Continuity of Care Document ---
Author Author Zhou GAGNON THREAD SEPARATOR Organization Unknown Address [address] [place] [address] Phone [phone] Care Team Providers Care Account Support Specialist Name Role Phone [facility] - Cardiovascular Disease AUTM [phone] [facility] - Surgery AUTM [phone] [facility] Nurse Practitioners - Dermatology AUTM [phone] [facility] - Urology AUTM [phone] [facility] - Gastroenterology AUTM Problems Active Problems [...] Gagnon FNP 11/14/2020 Vitamin D (Ergocalciferol) 1.25mg (82250 Ut) Capsules 1 cap by mouth every [...] mouth every day 90tabs Annmarie Gagnon, F ELECTRIC METER TECHNICIAN 03/18/2010 Paroxetine HCL 10mg Tablets take one [...] CPT Code Status Date Vaccine Lot # 42660 Given 09/12/2021 Influenza Virus Vaccine, Jesu drivalent,multidose vial [id number] 24423 Given 09/20/2019 Influenza Virus Vaccine, Jesu drivalent,multidose vial [id number] 65415 Given 12/30/2018 Pneumococcal Vaccine [id number] Given 10/06/2017 Influenza Vaccine (Fluzone)( medicare) [id number] 53727 Given 10/07/2016 Prevnar 13 For Adults [id number] 71257 Given 08/27/2016 Influenza Vaccination [id number] 63068 Given 07/22/2016 Boostrix (Tdap) Tetnus, Diphtheria Toxoids & Acellular Pertussis 91405 Given 08/14/2015 Influenza Vaccination [id number] 37257 Given 08/07/2014 Influenza Vaccination [id number] 07106 Given 08/03/2013 Influenza Vaccination [id number] 03688 Given 08/17/2012 Influenza Vaccination [id number] 05133 Given 09/24/2011 Influenza Vaccination/preser vative free [id number] Vital Signs Date Vital Result Comment 09/12/2021 10:26am Body Temperature 97.3 F 05/15/2021 11:32am BP Systolic 141 mmHg BP Diastolic 84 mmHg BP Systolic Recheck 119 mmHg BP Diastolic Recheck 88 mmHg Heart Rate 94 /min Body Temperature 97.6 F Respiratory Rate 18 /min Height 68 inches 5'8" Weight 178.38 lb Peak Expiratory Flow Rate 456 Estimated Peak Flow Rate [place] Body Weight 154 lb BMI (Body Mass Index) 27.1 kg/m2 Results Test Acquired Date Facility Test Result H/L Range Note Laboratory test finding 09/10/2021 [place] [address] [phone] Erythrocyte Sedimentation Rate 2 mm/hr Normal 0 -20 CBC With Differential 09/05/2021 [place] [address] [phone] White Blood Count 8.4 10 Normal 4.0-10.0 [...] 36.0-66.0 Lymph % 23.3 % Low 24.0-44.0 Wood % 7.3 % Normal 2.0-8.0 Eos % 1.0 % Normal 0.0-3.0 Baso % 0.2 % Normal 0.0-1.0 Immature Granulocyte % 0.7 % Normal 0-3.0 Nucleated Red Blood Cell % 0.0 % Normal 0-0 Neutrophils # 5.7 10 Normal 1.5-8.5 Lymph # 2.0 10 Normal 1.5-5.0 Wood # 0.6 10 Normal 0.0-0.8 Eos # 0.1 10 Normal 0.0-0.5 Baso # 0.0 10 Normal 0.0-0.2 Laboratory test finding 09/05/2021 Patient Service [place], [place] [id number] [phone] C Reactive Protein Quantitativ < 0.30 mg/dL Normal 0.00-0.30 Comprehensive Metabolic Profil 06/14/2021 [facility] [phone] Glucose, Fasting 169 mg/dL High 70-100 Blood [...] Albumin/Globulin Ratio 1.2 Normal Hemoglobin A1c 06/14/2021 [facility] [phone] Hemoglobin A1c 6.2 % Normal 2 Estimated Average Glucose 131 mg/dL High 60-110 Microalbumin [facility] [phone] Creatinine, Urine 46.6 mg/dL Normal Malb Urine [...] Little GFR Left ESRD GFR <15 on POLICE INVESTIGATOR 2 REFERENCE RANGES: <=5.6% NORMAL 5.7-6.4% SUGGESTS IMPAIRED GLUCOSE META BOLISM/PREDIABETIC >= 6.5% ABNORMAL 3 THE [place] DIABETES ASSOC[employer] ATION STATES THAT MICROALBUMINURIA IS PRESENT IF THE MICROALBUMIN/CREATININE RATIO EXCEEDS 30 MCG/MG. THE THRESHOLD FOR CLINICAL ALBUMINURIA IS REACHED AT 300 MCG/MG. THE CLASSIFICATION OF A PATIENT SHOULD BE BASED UPON AT LEAST 2 OF 3 ABNORMAL RESULTS ON SPECIMENS COLLECTED WITHIN A 3 TO 6 MONTH TIME FRAME. Procedures Date Code Description Status 05/15/2021 [id number] Diabetic Foot Exam Completed Medical Devices Description [...] sinusitis, unspecified Assessments Date Code Description Provider 05/15/2021 Z00.00 Encounter for genera l adult medical examination without abnormal findings Angelita Parr M.D. 05/15/2021 Z00.00 Encounter for genera l adult medical examination without abnormal findings Annmarie Gagnon FNP 05/15/2021 E11.40 Type 2 diabetes margarito itus with diabetic neuropathy, unspecified Angelita Parr M.D. 05/15/2021 E11.40 Type 2 diabetes margarito itus with diabetic neuropathy, unspecified Annmarie Gagnon FNP 05/15/2021 E78.5 Hyperlipidemia, unspecified Will Angelita shetty M.D. 05/15/2021 E78.5 Hyperlipidemia, unspecified Ples Annmarie mosley FNP 05/15/2021 I10 Essential (primary) hypertension Angelita Parr M.D. 05/15/2021 I10 Essential (primary) hypertension Annmarie Gagnon FNP 05/15/2021 K21.9 Gastro-esophageal reflux disease without esophagitis Aneglita Parr M.D. 05/15/2021 K21.9 Gastro-esophageal reflux disease without esophagitis Annmarie Gagnon, THREAD SEPARATOR 05/15/2021 G47.33 Obstructive sleep apnea (adult) (pediatric) Angelita Parr M.D. 05/15/2021 G47.33 Obstructive sleep apnea (adult) (pediatric) Annmarie Gagnon, THREAD SEPARATOR 05/15/2021 J45.909 Unspecified asthma, uncomplicate d Angelita Parr M.D. 05/15/2021 J45.909 Unspecified asthma, uncomplicate d Annmarie Gagnon, THREAD SEPARATOR 05/15/2021 I48.20 Chronic atrial fibrillation, uns pecified Angelita Parr M.D. 05/15/2021 I48.20 Chronic atrial fibrillation, uns pecified Annmarie Gagnon, THREAD SEPARATOR 05/15/2021 N40.0 Benign prostatic hyp erplasia without lower urinary tract symptoms Angelita Parr M.D. 05/15/2021 N40.0 Benign prostatic hyp erplasia without lower urinary tract symptoms Annmarie Gagnon FNP 05/15/2021 R13.10 Dysphagia, unspecified Angelita Parr M.D. 05/15/2021 R13.10 Dysphagia, unspecified Annmarie Gagnon FNP 05/15/2021 J01.90 Acute sinusitis, unspecified Angelita Camacho M.D. 05/15/2021 J01.90 Acute sinusitis, unspecified Annmarie [...] on upper gi. Thank you. Closed 08/[address] [place] [address] [phone] [facility] Please evaluate hiatal herni a and possible motility disorder noted on upper gi. Thank you. Closed [address] [place] [address] [phone] [facility] Please evaluate for BPH. Thank you. Closed 06/14/[address], [place] [address] [phone] Anuj Chen M.D. & Associate Patient need and EG D for dysphagia. Thank you. Closed 07/11/2021 [address] [place] [address] [phone]
--- OUTSIDE RECORDS SUMMARY | 2021-10-14 10:04 | CCD | Continuity of Care Document ---
Author Author Zhou GAGNON UTILITY BILL COLLECTION CLERK Organization Unknown Address [address] [place] [address] Phone [phone] Care Team Providers Care Armature Winder Repair Name Role Phone [facility] - Cardiovascular Disease AUTM [phone] [facility] - Surgery AUTM [phone] [facility] Nurse Practitioners - Dermatology AUTM [phone] [facility] - Urology AUTM [facility] - Gastroenterology AUTM Problems Active Problems [...] Gagnon FNP 11/14/2020 Vitamin D (Ergocalciferol) 1.25mg (00865 Ut) Capsules 1 cap by mouth every [...] Tablets 1 by mouth every day 90tabs Annmraie Gagnon FNP 08/09/2014 Atorvastatin Calcium 20mg Tablets [...] mouth every day 90tabs Annmarie Gagnon, F FURNITURE SALESPERSON 03/18/2010 Paroxetine HCL 10mg Tablets take one [...] CPT Code Status Date Vaccine Lot # 22614 Given 09/12/2021 Influenza Virus Vaccine, Jesu drivalent,multidose vial [id number] 21712 Given 09/20/2019 Influenza Virus Vaccine, Jesu drivalent,multidose vial [id number] 99608 Given 12/30/2018 Pneumococcal Vaccine [id number] Q2038 Given 10/06/2017 Influenza Vaccine (Fluzone)( medicare) [id number] 54643 Given 10/07/2016 Prevnar 13 For Adults [id number] 48889 Given 08/27/2016 Influenza Vaccination [id number] 39324 Given 07/22/2016 Boostrix (Tdap) Tetnus, Diphtheria Toxoids & Acellular Pertussis 79210 Given 08/14/2015 Influenza Vaccination [id number] 21297 Given 08/07/2014 Influenza Vaccination [id number] 55043 Given 08/03/2013 Influenza Vaccination [id number] 55267 Given 08/17/2012 Influenza Vaccination [id number] 21751 Given 09/24/2011 Influenza Vaccination/preser vative free [id number] Vital Signs Date Vital Result Comment 09/12/2021 10:26am Body Temperature 97.3 F 05/15/2021 11:32am BP Systolic 141 mmHg BP Diastolic 84 mmHg BP Systolic Recheck 119 mmHg BP Diastolic Recheck 88 mmHg Heart Rate 94 /min Body Temperature 97.6 F Respiratory Rate 18 /min Height 68 inches 5'8" Weight 178.38 lb Peak Expiratory Flow Rate 456 Estimated Peak Flow Rate [place] Body Weight 154 lb BMI (Body Mass Index) 27.1 kg/m2 Results Test Acquired Date Facility Test Result H/L Range Note Laboratory test finding 09/10/2021 [place] [address] [phone] Erythrocyte Sedimentation Rate 2 mm/hr Normal 0 -20 CBC With Differential 09/05/2021 [place] [address] [phone] White Blood Count 8.4 10 Normal 4.0-10.0 [...] 36.0-66.0 Lymph % 23.3 % Low 24.0-44.0 [place] % 7.3 % Normal 2.0-8.0 Eos % 1.0 % Normal 0.0-3.0 Baso % 0.2 % Normal 0.0-1.0 Immature Granulocyte % 0.7 % Normal 0-3.0 Nucleated Red Blood Cell % 0.0 % Normal 0-0 Neutrophils # 5.7 10 Normal 1.5-8.5 Lymph # 2.0 10 Normal 1.5-5.0 [place] # 0.6 10 Normal 0.0-0.8 Eos # 0.1 10 Normal 0.0-0.5 Baso # 0.0 10 Normal 0.0-0.2 Laboratory test finding 09/05/2021 Patient Service [place], [place] [address] [phone] C Reactive Protein Quantitativ < 0.30 mg/dL Normal 0.00-0.30 Comprehensive Metabolic Profil 06/14/2021 [facility] [phone] Glucose, Fasting 169 mg/dL High 70-100 Blood [...] Albumin/Globulin Ratio 1.2 Normal Hemoglobin A1c 06/14/2021 [facility] [phone] Hemoglobin A1c 6.2 % Normal 2 Estimated Average Glucose 131 mg/dL High 60-110 Microalbumin Random 06/14/2021 [facility] [phone] Creatinine, Urine 46.6 mg/dL Normal Malb Urine [...] Little GFR Left ESRD GFR <15 on PHOTOGRAPHIC PLATEMAKER 2 REFERENCE RANGES: <=5.6% NORMAL 5.7-6.4% SUGGESTS IMPAIRED GLUCOSE META BOLISM/PREDIABETIC >= 6.5% ABNORMAL 3 THE [place] DIABETES ASSOCI ATION STATES THAT MICROALBUMINURIA IS PRESENT IF THE MICROALBUMIN/CREATININE RATIO EXCEEDS 30 MCG/MG. THE THRESHOLD FOR CLINICAL ALBUMINURIA IS REACHED AT 300 MCG/MG. THE CLASSIFICATION OF A PATIENT SHOULD BE BASED UPON AT LEAST 2 OF 3 ABNORMAL RESULTS ON SPECIMENS COLLECTED WITHIN A 3 TO 6 MONTH TIME FRAME. Procedures Date Code Description Status 05/15/2021 [id number] Diabetic Foot Exam Completed Medical Devices Description [...] Gastro-esophageal reflux disease without esophagitis Annmarie Gagnon, UTILITY BILL COLLECTION CLERK 05/15/2021 G47.33 Obstructive sleep apnea (adult) (pediatric) Angelita Parr M.D. 05/15/2021 G47.33 Obstructive sleep apnea (adult) (pediatric) Annmarie Gagnon, UTILITY BILL COLLECTION CLERK 05/15/2021 J45.909 Unspecified asthma, uncomplicate d Angelita Parr M.D. 05/15/2021 J45.909 Unspecified asthma, uncomplicate d Annmarie Gagnon, UTILITY BILL COLLECTION CLERK 05/15/2021 I48.20 Chronic atrial fibrillation, uns pecified Angelita Parr M.D. 05/15/2021 I48.20 Chronic atrial fibrillation, uns pecified Annmarie Gagnon, UTILITY BILL COLLECTION CLERK 05/15/2021 N40.0 Benign prostatic hyp erplasia without [...] on upper gi. Thank you. Closed 08/[address] [place] [address] [phone] [facility] Please evaluate hiatal herni a and possible motility disorder noted on upper gi. Thank you. Closed [address] [place] [address] [phone] [facility] Please evaluate for BPH. Thank you. Closed 06/14/[address], [place] [address] [phone] Anuj Chen M.D. & Associate Patient need and EG D for dysphagia. Thank you. Closed 07/11/2021 [address] [place] [address] [phone]
--- OUTSIDE RECORDS SUMMARY | 2021-10-14 10:04 | CCD ---
Author Author Abiodun Leblanc MD [facility] Organization Abiodun Leblanc MD 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 - 12:00AM Guy Chen DO Active Chorioretinal Scar 11/19/2016 - 12:00AM Guy pena DO Active Cataract Senile Nuclear 11/19/2016 - 12:00AM Guy sharma DO Active Squamous blepharitis left upper eyelid 11/19/2016 - 12:00AM Guy Chen DO Active Squamous blepharitis left lower eyelid 11/19/2016 - 12:00AM Guy Chen DO Active Blepharitis Squamous 11/19/2016 - 12:00AM Guy temple DO Active Squamous blepharitis right lower eyelid 11/19/2016 - 12:00AM Guy Chen DO Active Dry Eye Syndrome Both Eyes 11/19/2016 - 12:00AM Jori Chen DO Active Vitreous Disorders Degeneration 11/19/2016 - 12:00AM Hannah Chen DO Active Plan of Treatment No Plan of Treatment Recorded Assessments Includes: Assessments for all patient encounters Findings Encounter Date Nuclear senile cataract 1 WK PREOP FOR SURGERY with Guy Guerrerostein DO 01/02/2021 Nuclear senile cataract 1 WK PREOP FOR SURGERY with Guy Guerrerostein DO 01/02/2021 Benign neoplasm of left choroid 1 Year Follow-Up with Jori frausto April DO 08/15/2020 Chorioretinal scar 1 Year Follow-Up with Guy April DO 08/15/2020 Dry eye syndrome of both eyes 1 Year Follow-Up with Guy April DO 08/15/2020 Macular puckering 1 Year Follow-Up with Guy [facility] DO 08/15/2020 Nuclear senile cataract 1 Year Follow-Up with Guy Goran callesn DO 08/15/2020 Pseudophakia 1 Year Follow-Up with Guy [facility] [place] [facility] DO 08/15/2020 Squamous blepharitis right upper eyelid , right lower eyelid, left upper eyelid and left lower eyelid 1 Year Follow-Up with Guy April DO 08/15/2020 Vitreous degeneration 1 Year Follow-Up with Guy Jc n DO 08/15/2020 Benign neoplasm of left choroid 1 Year Follow-Up with Jori frausto April DO 03/18/2019 Dry eye syndrome of both eyes 1 Year Follow-Up with Guy Guerrerostein DO 03/18/2019 Essential hypertension 1 Year Follow-Up with Guy calvo DO 03/18/2019 History of nicotine dependence 1 Year Follow-Up with Guy April DO 03/18/2019 Macular puckering 1 Year Follow-Up with Guy Guerrerostein DO 03/18/2019 Nuclear senile cataract 1 Year Follow-Up with Guy Goran pena DO 03/18/2019 Pseudophakia 1 Year Follow-Up with Guy April DO 03/18/2019 Retinal hemorrhage 1 Year Follow-Up with Guy [facility] DO 03/18/2019 Vitreous degeneration 1 Year Follow-Up with Guy Weinkaylee n DO 03/18/2019 Benign neoplasm of left choroid 1 Year Follow-Up with Jori frausto April DO 03/10/2018 Dry eye syndrome of both eyes 1 Year Follow-Up with Guy April DO 03/10/2018 Vitreous degeneration 1 Year Follow-Up with Guy [place] n DO 03/10/2018 Benign neoplasm of left choroid 3 - 4 Week Follow-Up with Essie madden [facility] DO 03/16/2017 Posterior capsule opacification of eccentric capsule i n the left eye 3 - 4 Week Follow-Up with Guy April VALENCIA 03/16/2017 Pseudophakia 3 - 4 Week Follow-Up with Guy pena DO 03/16/2017 Pseudophakia 1 Week Post OP with Guy Chen 2017 Pseudophakia 1 Day Post OP with Guy April DO 02/13/2017 Nuclear senile cataract 1 WK PREOP FOR SURGERY with Guy April VALENCIA 02/05/2017 Nuclear senile cataract A-SCAN with Guy April VALENCIA 06/2017 Arcus senilis was observed NEW PATIENT WITH REFERRAL with Essie Chen DO 11/19/2016 Chorioretinal scar NEW PATIENT WITH REFERRAL with Guy sharma DO 11/19/2016 Dry eye syndrome of both eyes NEW PATIENT WITH REFERRA L with Guy April DO 11/19/2016 Nuclear senile cataract NEW PATIENT WITH REFERRAL with Tyron Chen DO 11/19/2016 Squamous blepharitis NEW PATIENT WITH REFERRAL with Guy Chen DO 11/19/2016 Vitreous degeneration NEW PATIENT WITH REFERRAL with Guy Chen DO 11/19/2016 Instructions Instructions not supported for this document typeNo Instructions Recorded Medical Equipment - Implanted Devices Includes: Current and historical DevicesNo Medical Equipment Recorded Medications Includes: Current and historical Medications Current Medications (continue as prescribed) Inveltys 1% Ophthalmic Suspension 01/03/2021 Provid er: Guy Chen DO Diagnosis: Age-related nuclear cataract, right eye Day of surgery remove patch start one dr op two times a day in the right eye, RUN CARD. SEE PHARM NOTES BromSite 0.075% Ophthalmic Solution 01/03/2021 Prov ider: Guy Chen DO Diagnosis: Age-related nuclear cataract, right eye Three days prior to surgery start one dr op two times a day in the right eye, RUN CARD. SEE PHARM NOTES Moxifloxacin HCl 0.5% Ophthalmic Solution 01/03/2021 Provider: Guy Chen DO Diagnosis: Age-related nuclear cataract, right eye Three days prior to surgery start one drop four times a day in the right eye Eliquis 5MG Oral Tablet 11/19/2016 Provider: Diagnosis: Atorvastatin Calcium 20MG Oral Tablet 11/19/2016 Pr ovider: Diagnosis: Digox 125MCG Oral Tablet 11/19/2016 Provider: Diagnosis: Pantoprazole Sodium 40MG Oral Tablet, enteric coated 016 Provider: Diagnosis: Lisinopril 10MG Oral Tablet 11/19/2016 Provider: Diagnosis: AmLODIPine Besylate 5MG Oral Tablet 11/19/2016 Prov ider: Diagnosis: PARoxetine HCl 10MG Oral Tablet 11/19/2016 Provider : Diagnosis: Past Medications on file Pred Forte 1% Ophthalmic Suspension 02/05/2017 - 03/07/2017 Provider: Guy Chen DO Diagnosis: Age-related nuclear cataract, left eye day when patch is removed use one drop four times a day in t he left eye Besivance 0.6% Ophthalmic Suspension 02/05/2017 - 03/07/2017 Provider: Guy Chen DO Diagnosis: Age-related nuclear cataract, left eye three days prior start one drop three times a day in the lef t eye BromSite 0.075% Ophthalmic Solution 02/05/2017 - 03/07/2017 Provider: Guy Chen DO Diagnosis: Age-related nuclear cataract, left eye 3 days prior to surgery use one drop two times a day in the left eye Medications Administered Includes: Administered Medications in patient's chartNo Administered Medications Recorded Vital Signs Includes: Vital Signs from 07/23/2020 through 07/23/2021No Vital Signs Recorded For Specified Dates Results Includes: Results from 07/23/2020 through 07/23/2021No Results Recorded For Specified Dates History of Present Illness History of Present Illness not supported for this document typeNo History of Present Illness Recorded Social History Description Last Updated Tobacco non-user 01/02/2021 No consumption of alcohol 01/02/2021 No tobacco use 01/02/2021 Not using drugs 01/02/2021 Smoking status : Former smoker 01/02/2021 Previous smoking history 08/15/2020 Procedures and Surgical History Includes: Procedures from 07/23/2020 through 07/23/2021 Procedures Code Diagnosis Performing Provider Service Location Service Date Ophthalmic biometry - IOL Master with IOL calculation 89843 Age-related nuclear cataract, right eye Guy Vargas MD [facility] 01/02/2021 Intermediate Eye Exam Established Patient (Signi/Sep Eval. & Man.) 10092 Age- related nuclear cataract, right eye Guy Esposito [facility] 01/02/2021 Intermediate Eye Exam Established Patient 12675 Age-related nuclear cataract, right eye, Puckering of macula, left eye, Benign neoplasm of left choroid, Dry eye syndrome of bilateral lacrimal glands Guy Keane MD [facility] 08/15/2020 Surgical History Last Updated History of extracapsular cataract extraction PCIOL OS 02/12/[address] Chen 08/15/2020 Surgical / procedural history Ablation [id number], Repair retinal detachment left eye 2016 08/15/2020 Medical History Includes: Medical History in patient's chart Description Last Updated Reported medical history Detached retina 04/2016, A-Fi b 12/200408/15/2020 Currently wearing eyeglasses 08/15/2020 History of hyperlipidemia 08/15/2020 History of hypertension 08/15/2020 No recent change in medical history 08/15/2020 Family History Includes: Family History in patient's chart Description Last Updated Paternal history of diabetes mellitus 01/02/2021 Paternal history of heart disease 01/02/2021 Review of Systems Review of Systems not supported for this document typeNo Review of Systems Recorded Mental Status Mental Status not supported for this document type Description Oriented to time, place, and person Functional Status Functional Status not supported for this document typeNo Functional Status Recorded Physical Exam Physical Exam not supported for this document typeNo Physical Exam Recorded Immunizations Includes: Immunizations in patient's chartNo Immunizations Recorded Allergies Includes: Active, inactive, and resolved AllergiesNo Known Allergies Encounters Includes: Encounters from 07/23/2020 through 07/23/2021 Encounter Provider Location Date Check-In Time Check-Out Time D iagnosis 1 WK PREOP FOR SURGERY Guy Vargas MD [facility] 01/02/2021 2:27PM 3:55PM Cataract Senile Nuclear, Cat aract Senile Nuclear 1 Year Follow-Up Guy Vargas MD [facility] 07/25 10:01AM 11:10AM Benign Choroid Eye Neoplasm Left, Cataract Senile Nuclear, Chorioretinal Scar, Dry Eye Syndrome Both Eyes, Macular Puckering, Blepharitis Squamous, Vitreous Disorders Degeneration, Pseudophakia Insurance Includes: Active Insurance Policies Plan Name Member ID Group # Subscriber Relationship Effective Da [id number] 1 - Medicare Part B [facility] ([facility]) [id number] Moreno Arellano 2 - [facility] Employees ([employer]) - [facility] [id number] Zhou Dinh Self Advance Directives Includes: Current Advance DirectivesNo Advance Directives Recorded Health Concerns Includes: Active Health ConcernsNo Active Health Concerns Recorded Goals Includes: Active GoalsNo Active Goals Recorded Interventions Includes: Interventions for active GoalsNo Interventions Recorded Evaluations & Outcomes Includes: Evaluations & Outcomes for active GoalsNo Outcomes Recorded
--- OUTSIDE RECORDS SUMMARY | 2021-10-14 10:04 | CCD | Continuity of Care Document ---
Author Author Zhou CHEN Organization Unknown Address [address] [place] [address] Phone [phone] Care Team Providers Care Delineator Name Role Phone Annmarie Gagnon AUTM [phone] Problems Active Problems Provider Date Dysphagia Anuj Chen M.D. Onset: 08/20/20 21 Screening for malignant neoplasm of colon Anuj ragsdale M.D. Onset: 02/24/2019 Benign neoplasm of colon Jessica QueenNJune Onset: Essential hypertension Onset: 12/06/2014 Social History Type Date Description Comments Sex Unknown ETOH Use Occasionally Tobacco Use Start: Unknown End: Unknown Patient is a former smoker Allergies and adverse reactions Description No Known Drug Allergies Medications Active Medications SIG Qnty Indications Ordering Provide r Date Gaviscon Extra Strength 160-105mg Chewtabs 1 tab by mouth four times a day before meals,and at bedtime 360u nits Anuj Chen M.D. 08/20/2021 Carafate 1gm Tablets 1 tab by mouth twice a day 60tabs Anuj Chen M.D. 021 Gabapentin 300mg Capsules take one- two capsule by mouth at bedtime 60caps E11.40 Angelita Parr M.D . 12/30/2018 Paroxetine HCL 10mg Tablets take one tablet by mouth every day 90tabs Angelita aPrr M.D. 03/18/2010 Farxiga 5mg Tablets Annmarie Gagnon Levalbuterol Tartrate 45mcg/Act Ae rosol Inhale Two Puffs By Mouth Every 4 Hours as Needed Unknown Trazodone HCL 100mg Tablets Take 1 To 1 And 1/2 Tablets By Mouth AT Bedtime as Needed For Insomnia Unknown Tramadol HCL 50mg Tablets Take One Tablet By Mouth Every Day AT Bedtime Maximum Daily Dose 1 Unknown Januvia 100mg Tablets Take One Tablet By Mouth Every Day Unknown Qvar 40mcg/Act Aerosol Unknown Eliquis 5mg Tablets Unknown Atorvastatin Calcium 20mg Tablets Unknown Carvedilol 12.5mg Tablets Unknown Digoxin 125mcg Tablets Unknown Pantoprazole Sodium 40mg Tablets D R 1 tab by mouth twice a day 180tabs Anuj Chen M.D. Lisinopril 10mg Tablets Unknown Amlodipine Besylate 5mg Tablets Unknown Vitamin D Unknown Immunizations Description No Information Available Vital Signs Date Vital Result Comment 08/20/2021 3:10pm Height 67 inches 5'7" Weight 178.00 lb BP Systolic 133 mmHg BP Diastolic 75 mmHg Heart Rate 85 /min BMI (Body Mass Index) 27.9 kg/m2 Weight 80.741 kg Body Temperature 97.3 F 02/24/2019 1:09pm Height 67 inches 5'7" Weight 186.00 lb BP Systolic 128 mmHg BP Diastolic 88 mmHg Heart Rate 78 /min BMI (Body Mass Index) 29.1 kg/m2 Weight 84.370 kg Results Description No Information Available Procedures Date Code Description Status 08/20/2021 97226 Office/Outpatient Established Lo w MDM 20-29 Min Completed Medical Devices Description No Information Available Encounters Type Date Location Provider Dx Diagnosis Office Visit 08/20/2021 2:30p Main Office Anuj Chen M.D. R 12 Heartburn R13.10 Dysphagia, unspecified Assessments Date Code Description Provider 08/20/2021 R12 Heartburn Anuj pena M.D. 08/20/2021 R13.10 Dysphagia, unspecified Anuj Chen M.D. Plan of Treatment Future Appointment(s):* 10/01/2021 7:45 am - Pat-Remih at Main Office * 10/14/2021 12:15 pm - Anuj Chen M.D. at Main Office 08/20/2021 - Anuj Chen M.D.* R12 Heartburn* Comments:* 71 yo wm who presents for a h/o heartburn/dysphagia. No c/o abdominal pain, weight loss, change in bowel habits, or rectal bleeding. No family h/o colon cancer. No h/o chest pain, or sob. Plan:1. Egd + BD2. informed Consent * R13.10 Dysphagia, unspecified* Comments:* Schedule Upper Endoscopy. Functional Status Description No Information Available Mental Status Description No Information Available Referrals Description No Information Available
--- OUTSIDE RECORDS SUMMARY | 2021-10-14 10:04 | CCD ---
Author Author [facility] Organization [facility] Address Unknown Phone Unavailable Care Team Providers Care Wallpaper Remover Steam Name Role Phone Johnny Santa Unavailable PROBLEMS Type Condition ICD9-CM Code NCD25-ZM Code Onset Dates Condition S tatus W/U Status Risk SNOMED Code Notes Problem Urinary frequency R35.0 Active confirmed 16 [id number] Problem Benign prostatic hyperplasia with lower urinary tract symptoms N40.1 Active confirmed [id number] Problem Erectile dysfunction N52.9 Active confirmed [id number] ALLERGIES No Known Allergies ENCOUNTERS from 1950 to 2021-07-30 Encounter Location Date Provider Diagnosis [facility] [address] [phone] [place] [address] Jul, Santa Turner Urinary frequency R35.0 ; Erectile dysfu nction N52.9 ; Nocturia R35.1 and Benign prostatic hyperplasia with lower urinary tract symptoms N40.1 IMMUNIZATIONS Vaccine Route Administration Date Status Influenza 6mo & up Fluzone Unknown February 13, 2015 Refus ed SOCIAL HISTORY Sex Assigned At : Social History Observation Description Sex Assigned At Unknown REASON FOR REFERRAL No Information VITAL SIGNS Weight 178 lbs Jul, Weight-kg 80.74 kg Jul, Height 5'7'' in Jul, BMI 27.88 kg/m2 Jul, Heart Rate 96 /min Jul, Respiratory Rate 18 /min Jul, Temperature 97.1 degrees Fahrenheit Jul, Oximetry 98 Jul, Blood pressure systolic 122 mm Hg Jul, Blood pressure diastolic 78 mm Hg Jul, MEDICATIONS Medication SIG (Take, Route, Frequency, Duration) Notes Start Da te End Date Status Sildenafil Citrate 100 MG 1 tablet as needed Orally Once a day f or 30 day(s) May, Active Tamsulosin HCl 0.4 MG 1 capsule Orally Once a day for 30 day(s) Active Carvedilol 12.5mg oral Not-Saeid ing PARoxetine HCl 10 MG 1 tablet in the morning Orally Once a day Not-Taking Eliquis 5 MG Orally Not-Taking Levalbuterol HCl 0.63 MG/3ML 3 ml Inhalation every 8 hrs Active Atorvastatin Calcium 20 MG 1 tablet Orally Once a day Not-Taking Qvar RediHaler 40 MCG/ACT 1 puff Inhalation Once a day Active Pantoprazole Sodium 40 MG 1 tablet Orally Once a day for 30 day(s) Active Xopenex HFA 45 MCG/ACT 2 puffs as needed Inhalation every 6 hrs Not-Taking Gabapentin 600 MG 1 tablet Orally Once a day for 30 day(s) Active Eliquis 5 MG as directed Orally Acti ve Pantoprazole Sodium 40 MG 1 tablet Orally Once a day Not-Taking Januvia 100 MG 1 tablet Orally Once a day for 30 day(s) Active Lisinopril 10 MG 1 tablet Orally Once a day for 30 day(s) Active Digox 125 MCG 1 tablet Orally Once a day Not-Taking traZODone HCl 50 MG 1 tablet at bedtime as neede d Orally Once a day for 30 day(s) Active Vitamin D2 50 MCG (2000 UT) 1 tablet Orally Once a day for 30 day(s) Active Atorvastatin Calcium 20 MG 1 tablet Orally Once a day for 30 day(s) Active Qvar 40 MCG/ACT 1 puff Inhalation Twice a day Not-Taking Vitamin D (Ergocalciferol) 59730 UNIT 1 capsule Orally Not-Taking Amlodipine 5mg oral Not-Taking Oxybutynin Chloride ER 10 MG 1 tablet Orally Once a day for 30 d ay(s) May, Active Lisinopril 10 10 mg oral Not-T aking PARoxetine HCl 10 MG 1 tablet in the morning Orally Once a day f or 30 day(s) Active Digoxin 125 MCG as directed Orally A ctive Farxiga 5 MG 1 tablet Orally Once a day for 30 day(s) Active amLODIPine Besylate 5 MG 1 tablet Orally Once a day for 30 day(s) Active Carvedilol 12.5 MG 1 tablet with food Orally Twice a day for 30 day(s ) Active PROCEDURES No Information RESULTS No Results REASON FOR VISIT 6 week f/u MEDICAL (GENERAL) HISTORY Type Description Date Medical History Vitamin D deficient Medical History A-FIB Medical History CHF Medical History Pulmonary Edema Medical History Hyperlipidemia Medical History Hypertension Surgical History Wrist surgery Surgical History Neck surgery Surgical History full knee replacement right side 01/2021 Hospitalization History atrial fibrillation Goals Section No Information Health Concerns No Information MEDICAL EQUIPMENT No Information MENTAL STATUS No Information FUNCTIONAL STATUS No Information ASSESSMENTS Encounter Date Diagnosis Assessment Notes Treatment Notes Treatm ent Clinical Notes Jul, Urinary frequency (ICD-10 - R35.0) Jul, Erectile dysfunction (ICD-10 - N52.9) Jul, Nocturia (ICD-10 - R35.1) Jul, Benign prostatic hyperplasia with lower urinary tract symptoms (ICD-10 - N40.1) PLAN OF TREATMENT Next Appt Details Provider Name:Santa Tavarez Johnny, 2021-10-1 0 11:15:00 AM, [address], , [place], [address], Insurance Providers Payer Name Payer Address Payer Phone Insured Name Patient Relati onship to Insured Coverage Start Date Coverage End Date [facility] [address] [facility] [id number] Tara Bolaños
--- OUTSIDE RECORDS SUMMARY | 2021-10-14 10:04 | CCD | Continuity of Care Document ---
Author Author Zhou GAGNON TRAFFIC CONTROL OPERATOR Organization Unknown Address [address] [place] [address] Phone [phone] Care Team Providers Care Support Architect Name Role Phone [facility] - Cardiovascular Disease AUTM [phone] [facility] - Surgery AUTM [phone] [facility] Nurse Practitioners - Dermatology AUTM [phone] [facility] - Urology AUTM [facility] - Gastroenterology AUTM Problems Active Problems [...] Use Denies Drug Use Smoking Status Reviewed: 01/03/21 Patient is a former smoker qu it [...] Gagnon FNP 11/14/2020 Vitamin D (Ergocalciferol) 1.25mg (03146 Ut) Capsules 1 cap by mouth every [...] mouth every day 90tabs Annmarie Gagnon, F ENGINEERING SURVEYOR 03/18/2010 Paroxetine HCL 10mg Tablets take one [...] CPT Code Status Date Vaccine Lot # [id number] Given 09/20/2019 Influenza Virus Vaccine, Jesu drivalent,multidose vial [id number] 18395 Given 12/30/2018 Pneumococcal Vaccine [id number] Given 10/06/2017 Influenza Vaccine (Fluzone)( medicare) [id number] 31020 Given 10/07/2016 Prevnar 13 For Adults [id number] 28976 Given 08/27/2016 Influenza Vaccination [id number] 15980 Given 07/22/2016 Boostrix (Tdap) Tetnus, Diphtheria Toxoids & Acellular Pertussis 17845 Given 08/14/2015 Influenza Vaccination [id number] 91438 Given 08/07/2014 Influenza Vaccination [id number] 52256 Given 08/03/2013 Influenza Vaccination [id number] 90796 Given 08/17/2012 Influenza Vaccination [id number] 52228 Given 09/24/2011 Influenza Vaccination/preser vative free [id number] Vital Signs Date Vital Result Comment 05/15/2021 11:32am BP Systolic 141 mmHg BP Diastolic 84 mmHg BP Systolic Recheck 119 mmHg BP Diastolic Recheck 88 mmHg Heart Rate 94 /min Body Temperature 97.6 F Respiratory Rate 18 /min Height 68 inches 5'8" Weight 178.38 lb Peak Expiratory Flow Rate 456 Estimated Peak Flow Rate [place] Body Weight 154 lb BMI (Body Mass Index) 27.1 kg/m2 01/03/2021 9:17am BP Systolic 114 mmHg BP Diastolic 87 mmHg Heart Rate 95 /min Body Temperature 97.2 F Respiratory Rate 16 /min Height 68.0 inches 5'8" Weight 182.50 lb O2 % BldC Oximetry 98 % Peak Expiratory Flow Rate 472 Estimated Peak Flow Rate [place] Body Weight 154 lb BMI (Body Mass Index) 27.7 kg/m2 Results Test Acquired Date Facility Test Result H/L Range Note Laboratory test finding 09/10/2021 [facility] [place] [address] [phone] Erythrocyte Sedimentation Rate 2 mm/hr Normal 0 -20 CBC With Differential 09/05/2021 [place] [address] [phone] White Blood Count 8.4 10 Normal 4.0-10.0 [...] 36.0-66.0 Lymph % 23.3 % Low 24.0-44.0 [place] % 7.3 % Normal 2.0-8.0 Eos % 1.0 % Normal 0.0-3.0 Baso % 0.2 % Normal 0.0-1.0 Immature Granulocyte % 0.7 % Normal 0-3.0 Nucleated Red Blood Cell % 0.0 % Normal 0-0 Neutrophils # 5.7 10 Normal 1.5-8.5 Lymph # 2.0 10 Normal 1.5-5.0 [place] # 0.6 10 Normal 0.0-0.8 Eos # 0.1 10 Normal 0.0-0.5 Baso # 0.0 10 Normal 0.0-0.2 Laboratory test finding 09/05/2021 [facility] [place], [place] [address] [phone] C Reactive Protein Quantitativ < 0.30 mg/dL Normal 0.00-0.30 Comprehensive Metabolic Profil 06/14/2021 [facility] [phone] Glucose, Fasting 169 mg/dL High 70-100 Blood [...] Albumin/Globulin Ratio 1.2 Normal Hemoglobin A1c 06/14/2021 [facility] [phone] Hemoglobin A1c 6.2 % Normal 2 Estimated Average Glucose 131 mg/dL High 60-110 Microalbumin Random 06/14/2021 [facility] [phone] Creatinine, Urine 46.6 mg/dL Normal Malb Urine [...] Little GFR Left ESRD GFR <15 on RIB SAWYER 2 REFERENCE RANGES: <=5.6% NORMAL 5.7-6.4% SUGGESTS IMPAIRED GLUCOSE META BOLISM/PREDIABETIC >= 6.5% ABNORMAL 3 THE [employer] ATION STATES THAT MICROALBUMINURIA IS PRESENT IF THE MICROALBUMIN/CREATININE RATIO EXCEEDS 30 MCG/MG. THE THRESHOLD FOR CLINICAL ALBUMINURIA IS REACHED AT 300 MCG/MG. THE CLASSIFICATION OF A PATIENT SHOULD BE BASED UPON AT LEAST 2 OF 3 ABNORMAL RESULTS ON SPECIMENS COLLECTED WITHIN A 3 TO 6 MONTH TIME FRAME. Procedures Date Code Description Status 05/15/2021 [id number] Diabetic Foot Exam Completed Medical Devices Description [...] K21.9 Gastro-esophageal reflux disease without esophagitis Annmarie Gagnon FNP 05/15/2021 G47.33 Obstructive sleep apnea (adult) (pediatric) Angelita Parr M.D. 05/15/2021 G47.33 Obstructive sleep apnea (adult) (pediatric) Annmarie Gagnon FNP 05/15/2021 J45.909 Unspecified asthma, uncomplicate d Angelita Parr M.D. 05/15/2021 J45.909 Unspecified asthma, uncomplicate d Annmarie Gagnon FNP 05/15/2021 I48.20 Chronic atrial fibrillation, uns pecified Angelita Parr M.D. 05/15/2021 I48.20 Chronic atrial fibrillation, uns pecified Annmarie Gagnon FNP 05/15/2021 N40.0 Benign prostatic hyp erplasia without lower urinary tract symptoms Angelita Parr M.D. 05/15/2021 N40.0 Benign prostatic hyp erplasia without lower urinary tract symptoms Annmarie Gagnon FNP 05/15/2021 R13.10 Dysphagia, unspecified nAgelita Parr M.D. 05/15/2021 R13.10 Dysphagia, unspecified Annmarie Gagnon FNP 05/15/2021 J01.90 Acute sinusitis, unspecified Angelita Camacho M.D. 05/15/2021 J01.90 Acute sinusitis, unspecified Annmarie Barrow FNP Plan of Treatment Future Appointment(s):* 09/12/2021 10:30 am - Annmarie Gagnon FNP at Main Office * 11/14/2021 10:30 am - Annmarie Gagnon FNP at Main Office 05/15/2021 - Annmarie Gagnon FNP* Z00.00 Encounter for general adult medical examination without abnormal findings* Comments:* Health maintenance up to date. Overall doing well. GISELLE/PHQ 9/CAGE questionnaire reviewed. Discussed healthy lifestyle choices. * E11.40 Type 2 diabetes mellitus with diabetic neuropathy, unspecified* Comments:* continue current medications * Follow up:* 6 months with labs * E78.5 Hyperlipidemia, unspecified* Comments:* continue statin * I10 Essential (primary) hypertension* Comments:* controlled, continue current medications * K21.9 Gastro-esophageal reflux disease without esophagitis* Comments:* controlled on current medications * G47.33 Obstructive sleep apnea (adult) (pediatric)* Comments:* patient is non- compliant with CPAP, understands risk of untreated sleep apnea * J45.909 Unspecified asthma, uncomplicated * I48.20 Chronic atrial fibrillation, unspecified* Comments:* continue eliquis * N40.0 Benign prostatic hyperplasia without lower urinary tract symptoms* Comments:* refer to urology * Referral:* [facility], Urology * R13.10 Dysphagia, unspecified* Comments:* upper GI and proceed based on results * Referral:* Anuj Chen M.D. [facility] Associate, Gastroenerology/RN * J01.90 Acute sinusitis, unspecified* New Medication:* Amoxicillin/Clavulanate Potassium 875-125 mg - 1 by mouth twice a day for 10 days Functional Status Functional Condition Comment Date Status Glasses reading Active Independent with all ADL's Activ e Independent with all IADL's Acti ve Hearing Aid in both ears Active Cpap Machine Not using Active Mental Status Mental Condition Comment Date Status None Active Referrals Refer to Dr Reason for Referral Status Appt Date Anuj Chen M.D. & Associate Please evaluate hia audra hernia and possible motility disorder noted on upper gi. Thank you. Closed 08/20 [address] [place] [address] [phone] [facility] Please evaluate hiatal herni a and possible motility disorder noted on upper gi. Thank you. Closed [address] [place] [address] [phone] [facility] Please evaluate for BPH. Thank you. Closed 06/14/[address], [place] [address] [phone] Anuj Cehn M.D. & Associate Patient need and EG D for dysphagia. Thank you. Closed 07/11/2021 [address] [place] [address] [phone]
--- OUTSIDE RECORDS SUMMARY | 2021-10-14 10:04 | CCD | Continuity of Care Document ---
Author Author Zhou AVILA SPINNING LATHE OPERATOR [employer]AT[employer] Organization Unknown Address [address], [address] [place] [address] Phone [phone] Care Team Providers Care Linen Room Custodian Name Role Phone Annmarie Gagnon AUTM [phone] Problems Description No Information Available Social History Type Date Description Comments Sex Unknown Tobacco Use Start: Unknown End: Unknown Former Cigarette Smo ker Quit 1995 ETOH Use Occasionally consumes alcohol Sun Exposure minimum amount of sun exposure Sun Exposure Has never used tanning bed Sun Exposure Has experienced blistering from sunburns Sun Exposure Uses 15-30 SPF Allergies, Adverse Reactions, Alerts Description No Known Drug Allergies Medications Active Medications SIG Qnty Indications Ordering Provide r Date Vitamin D (Ergocalciferol) Unknown Farxiga Unknown Gabapentin Unknown Januvia Unknown Digoxin Unknown Atorvastatin Calcium Unknown Amlodipine Besylate Unknown Lisinopril Unknown Pantoprazole Sodium Unknown Carvedilol Unknown Eliquis Unknown Paroxetine HCL Unknown Qvar Unknown Trazodone HCL 50mg Tablets Annmarie Gagnon FNP Levalbuterol Tartrate 45mcg/Act Ae rosol Inhale Two Puffs By Mouth Every 4 Hours as Needed Unknown Tamsulosin HCL Unknown Immunizations Description No Information Available Vital Signs Date Vital Result Comment 06/25/2021 11:27am BP Systolic 130 mmHg BP Diastolic 72 mmHg Weight 175.00 lb Respiratory Rate 17 /min 02/06/2021 11:24am BP Systolic 122 mmHg BP Diastolic 76 mmHg Body Temperature 98.2 F Respiratory Rate 18 /min Results Test Acquired Date Facility Test Result H/L Range Note [facility] Pathology 06/25/2021 [facility] Icd9 Code ICD9 Code: D22.3 <SEE NOTE> 1, 2 [facility]ort SEE IMAGE Right Nose (1 Of 2) 02/06/2021 [facility] Icd9 Code ICD9 Code: D22.3 <SEE NOTE> 3, 4 [facility]ort SEE IMAGE 1 No further treatment 2 ICD9 Code: D22.30 Protocol: shave Clinical Text: INTRADERMAL NEVUS Final Diagnosis: INTRADERMAL MELANOCYTIC NEVUS. Gross Text: The specimen grossly was irregular in shape and measured 6 x 4 mm. on the surface and 1 mm. deep. It was divided into 2 sections on the long axis. All of the tissue was submitted for processing. Microscopic Description: There are groups of benign nevus cells in the cutis. CPT: 95733*1 3 A) No further treatment B) N o further treatment 4 ICD9 Code: D22.30 Protocol: shave Clinical Text: IRRITATED NEVUS Final Diagnosis: INTRADERMAL MELANOCYTIC NEVUS. Gross Text: The specimen grossly was irregular in shape and measured 4 x 3 mm. on the surface and 1 mm. deep. It was divided into 2 sections on the long axis. All of the tissue was submitted for processing. Microscopic Description: There are groups of benign nevus cells in the cutis. CPT: 42416*2 Procedures Date Code Description Status 06/25/2021 62860 Office/Outpatient Established Mo d MDM 30-39 Min Completed 06/25/2021 44278 Shave Skin Lesion .6-1CM Face/Ea r/Eyelid/Nose/Lip/Mucous Membr Completed 02/06/2021 01468 Shave Skin Lesion <.6CM Face/Ear /Eyelid/Nose/Lip/Mucous Membr Completed Medical Devices Description No Information Available Encounters Type Date Location Provider Dx Diagnosis Office Visit 06/25/2021 11:15a Main Office DAMIEN Delgado-C D 22.5 Melanocytic nevi of trunk D22.0 Melanocytic nevi of lip D22.71 Melanocytic nevi of right lo wer limb, including hip D22.72 Melanocytic nevi of left low er limb, including hip L82.1 Other seborrheic keratosis L81.4 Other melanin hyperpigmentat ion D22.39 Melanocytic nevi of other pa rts of face R20.8 Other disturbances of skin s ensation D48.5 Neoplasm of uncertain behavi or of skin Z12.83 Encounter for screening for malignant neoplasm of skin Assessments Date Code Description Provider 06/25/2021 D22.5 Melanocytic nevi of trunk Valencia DAMIEN Laws-Kd 06/25/2021 D22.0 Melanocytic nevi of lip Vlaencia DAMIEN Laws-C 06/25/2021 D22.71 Melanocytic nevi of right lower limb, including hip Valencia DAMIEN Laws-C 06/25/2021 D22.72 Melanocytic nevi of left lower l imb, including hip Valencia DAMIEN Laws-C 06/25/2021 L82.1 Other seborrheic keratosis Marlenys a DAMIEN Laws-C 06/25/2021 L81.4 Other melanin hyperpigmentation DAMIEN Delgado-C 06/25/2021 D22.39 Melanocytic nevi of other parts of face DAMIEN Delgado-C 06/25/2021 R20.8 Other disturbances of skin sensa tion NEIL Delgado 06/25/2021 D48.5 Neoplasm of uncertain behavior o f skin DAMIEN Delgado-C 06/25/2021 Z12.83 Encounter for screening for jigar gnant neoplasm of skin DAMIEN Delgado-Kd 02/06/2021 D22.30 Melanocytic nevi of unspecified part of face Jody Hernandez'mirta, F.N.P. 02/06/2021 D22.30 Melanocytic nevi of unspecified part of face DAMIEN Delgado-Kd 02/06/2021 R20.8 Other disturbances of skin sensa tion Jody O'mirta, F.N.P. 02/06/2021 R20.8 Other disturbances of skin sensa tion NEIL Delgado Plan of Treatment Future Appointment(s):* 12/26/2021 11:15 am - NEIL Delgado at Main Office 06/25/2021 - NEIL Delgado* D22.5 Melanocytic nevi of trunk* Comments:* Nevus on trunk appear healthy. Monitor for changes. Peres angiomas - reassurance.Sun protection and sunscreen use discussed. Literature given on monthly self-skin evaluations Should any moles change in shape or color, itch, bleed or burn, pt. will contact office for evaluation sooner than their interval appointment. * D22.0 Melanocytic nevi of lip* Comments:* Reassurance. * D22.71 Melanocytic nevi of right lower limb, including hip* Comments:* Nevi located on R leg appear healthy. Monitor for changes. * D22.72 Melanocytic nevi of left lower limb, including hip* Comments:* Nevi L leg appear healthy. Monitor for changes. * L82.1 Other seborrheic keratosis* Comments:* Reassurance. * L81.4 Other melanin hyperpigmentation* Comments:* Solar lentigines - ReassuranceDiscussed that solar lentignes appear from the sun that was received years agoSunscreen use and sun protection discussed. * D22.39 Melanocytic nevi of other parts of face* Comments:* Nevus on L cheek removed via shave today due to irritation.Zhou tolerated procedure well.Wound care instructions given. * R20.8 Other disturbances of skin sensation* Comments:* See above. * D48.5 Neoplasm of uncertain behavior of skin* Comments:* Re-discussed options as far as treatment. Watch and wait vs excision. Discussed that for mild atypia we usually monitor the area for any changes at future skin checks and there are times it needs to be re-biopsied. With moderate atypia the recommendation is to fully excise. Zhou would like to hold off on an excision at this time.Continue to monitor for any recurrence. * Z12.83 Encounter for screening for malignant neoplasm of skin* Comments:* See above. * Follow up:* 6 months/PRN - [facility] Functional Status Description No Information Available Mental Status Description No Information Available Referrals Refer to Dr Reason for Referral Status Appt Date Valencia Avila NP [address] [place] [id number] [phone]
--- OUTSIDE RECORDS SUMMARY | 2021-10-14 10:04 | CCD | Continuity of Care Document ---
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 Name Role Phone [facility] - Cardiovascular Disease AUTM [phone] [facility] - Surgery AUTM [phone] [facility] Nurse Practitioners - Dermatology AUTM [phone] [facility] - Urology AUTM [facility] - Gastroenterology AUTM [phone] Problems Active Problems Provider Date Hyperlipidemia Chandrika [...] Gagnon FNP 11/14/2020 Vitamin D (Ergocalciferol) 1.25mg (08894 Ut) Capsules 1 cap by mouth every [...] mouth every day 90tabs Annmarie Gagnon, F MUSEUM EDUCATOR 03/18/2010 Paroxetine HCL 10mg Tablets take one tablet by mouth every day 90tabs Annmarie Gagonn FNP 0 03/18/2010 Lisinopril 10mg Tablets 1 [...] CPT Code Status Date Vaccine Lot # [id number] Given 09/20/2019 Influenza Virus Vaccine, Jesu drivalent,multidose vial [id number] 57050 Given 12/30/2018 Pneumococcal Vaccine [id number] Given 10/06/2017 Influenza Vaccine (Fluzone)( medicare) [id number] 86101 Given 10/07/2016 Prevnar 13 For Adults [id number] 45157 Given 08/27/2016 Influenza Vaccination [id number] 25846 Given 07/22/2016 Boostrix (Tdap) Tetnus, Diphtheria Toxoids & Acellular Pertussis 22478 Given 08/14/2015 Influenza Vaccination [id number] 35825 Given 08/07/2014 Influenza Vaccination [id number] 72571 Given 08/03/2013 Influenza Vaccination [id number] 53544 Given 08/17/2012 Influenza Vaccination [id number] 30395 Given 09/24/2011 Influenza Vaccination/preser vative free [id number] Vital Signs Date Vital Result Comment 05/15/2021 11:32am BP Systolic 141 mmHg BP Diastolic 84 mmHg BP Systolic Recheck 119 mmHg BP Diastolic Recheck 88 mmHg Heart Rate 94 /min Body Temperature 97.6 F Respiratory Rate 18 /min Height 68 inches 5'8" Weight 178.38 lb Peak Expiratory Flow Rate 456 Estimated Peak Flow Rate [place] Body Weight 154 lb BMI (Body Mass Index) 27.1 kg/m2 01/03/2021 9:17am BP Systolic 114 mmHg BP Diastolic 87 mmHg Heart Rate 95 /min Body Temperature 97.2 F Respiratory Rate 16 /min Height 68.0 inches 5'8" Weight 182.50 lb O2 % BldC Oximetry 98 % Peak Expiratory Flow Rate 472 Estimated Peak Flow Rate [place] Body Weight 154 lb BMI (Body Mass Index) 27.7 kg/m2 Results Test Acquired Date Facility Test Result H/L Range Note Laboratory test finding 09/10/2021 [place] [address] [phone] Erythrocyte Sedimentation Rate 2 mm/hr Normal 0 -20 CBC With Differential 09/05/2021 [place] [address] [phone] White Blood Count 8.4 10 Normal 4.0-10.0 [...] 36.0-66.0 Lymph % 23.3 % Low 24.0-44.0 [place] % 7.3 % Normal 2.0-8.0 Eos % 1.0 % Normal 0.0-3.0 Baso % 0.2 % Normal 0.0-1.0 Immature Granulocyte % 0.7 % Normal 0-3.0 Nucleated Red Blood Cell % 0.0 % Normal 0-0 Neutrophils # 5.7 10 Normal 1.5-8.5 Lymph # 2.0 10 Normal 1.5-5.0 [place] # 0.6 10 Normal 0.0-0.8 Eos # 0.1 10 Normal 0.0-0.5 Baso # 0.0 10 Normal 0.0-0.2 Laboratory test finding 09/05/2021 [facility] [place], [place] [id number] [phone] C Reactive Protein Quantitativ < 0.30 mg/dL Normal 0.00-0.30 Comprehensive Metabolic Profil 06/14/2021 [facility] [phone] Glucose, Fasting 169 mg/dL High 70-100 Blood [...] Albumin/Globulin Ratio 1.2 Normal Hemoglobin A1c 06/14/2021 [facility] [phone] Hemoglobin A1c 6.2 % Normal 2 Estimated Average Glucose 131 mg/dL High 60-110 Microalbumin Random 06/14/2021 [facility] [phone] Creatinine, Urine 46.6 mg/dL Normal Malb Urine [...] Little GFR Left ESRD GFR <15 on FIELD TECHNICAL SUPPORT CONSULTANT 2 REFERENCE RANGES: <=5.6% NORMAL 5.7-6.4% SUGGESTS IMPAIRED GLUCOSE META BOLISM/PREDIABETIC >= 6.5% ABNORMAL 3 THE [employer] ATION STATES THAT MICROALBUMINURIA IS PRESENT IF THE MICROALBUMIN/CREATININE RATIO EXCEEDS 30 MCG/MG. THE THRESHOLD FOR CLINICAL ALBUMINURIA IS REACHED AT 300 MCG/MG. THE CLASSIFICATION OF A PATIENT SHOULD BE BASED UPON AT LEAST 2 OF 3 ABNORMAL RESULTS ON SPECIMENS COLLECTED WITHIN A 3 TO 6 MONTH TIME FRAME. Procedures Date Code Description Status 05/15/2021 [id number] Diabetic Foot Exam Completed Medical Devices Description [...] symptoms* Comments:* refer to urology * Referral:* [facility], Urology * R13.10 Dysphagia, unspecified* [...] upper gi. Thank you. Closed 08/20 [address] [place] [address] [phone] [facility] Please evaluate hiatal herni a and possible motility disorder noted on upper gi. Thank you. Closed [address] [place] [address] [phone] [facility] Please evaluate for BPH. Thank you. Closed 06/14/2021 [address] [place] [address] [phone] Anuj Chen M.D. & Associate Patient need and EG D for dysphagia. Thank you. Closed 07/11/2021 [address] [place] [address] [phone]
--- OUTSIDE RECORDS SUMMARY | 2021-10-14 10:06 | CCD ---
Author Author [facility] Organization [facility] Address Unknown Phone Unavailable Care Team Providers Care Groover Operator Name Role Phone [place], A Wanda PA Unavailable Unavailable Merary, A Wanad PA Unavailable Unavailable Merary, A Wanda PA Unavailable Unavailable Merary, A Wanda PA Unavailable Unavailable [place], A Wanda PA Unavailable Unavailable Merary, A Wanda PA Unavailable Unavailable [place], A Wanda PA Unavailable Unavailable [place], A Wanda PA Unavailable Unavailable Merary, A Wanda PA Unavailable Unavailable [place], A Wanda PA Unavailable Unavailable Merary, A Wanda PA Unavailable Unavailable [place], A Wanda PA Unavailable Unavailable [place], A Wanda PA Unavailable Unavailable [place], A Wanda PA Unavailable Unavailable [place], A Wanda PA Unavailable Unavailable Merary, A Wanda PA Unavailable Unavailable Merary, A Wanda PA Unavailable Unavailable [place], A Wanda PA Unavailable Unavailable Merary, A Wanda PA Unavailable Unavailable Merary, A Wanda PA Unavailable Unavailable Merary, A Wanda PA Unavailable Unavailable [place], A Wanda PA Unavailable Unavailable [place], A Wanda PA Unavailable Unavailable [place], A Wanda PA Unavailable Unavailable [place], A Wanda PA Unavailable Unavailable [place], A Wanda PA Unavailable Unavailable Merary, A Wanda PA Unavailable Unavailable Merary, A Wanda PA Unavailable Unavailable Merary, A Wanda PA Unavailable Unavailable Merary, A Wanda PA Unavailable Unavailable Merary, A Wanda PA Unavailable Unavailable Merary, A Wanda PA Unavailable Unavailable Gil Chen MD Unavailable Unavailable Gil Chen MD Unavailable Unavailable Gil Chen MD Unavailable Unavailable Gil Chen MD Unavailable Unavailable Gil Chen MD Unavailable Unavailable Gil Chen MD Unavailable Unavailable Gil Chen MD Unavailable Unavailable Gil Chen MD Unavailable Unavailable Gil Chen MD Unavailable Unavailable Gil Chen MD Unavailable Unavailable Gil Chen MD Unavailable Unavailable Gil Chen MD Unavailable Unavailable JoanGil temple MD Unavailable Unavailable JoanGil temple MD Unavailable Unavailable Gil Chen MD Unavailable Unavailable Gil Chen MD Unavailable Unavailable Gil Chen MD Unavailable Unavailable Gil Chen MD Unavailable Unavailable Gil Chen MD Unavailable Unavailable Gil Chen MD Unavailable Unavailable Gil Chen MD Unavailable Unavailable Gil Chen MD Unavailable Unavailable Gil Chen MD Unavailable Unavailable Gil Chen MD Unavailable Unavailable Gil Chen MD Unavailable Unavailable Gil Chen MD Unavailable Unavailable Gil Chen MD Unavailable Unavailable Gil Chen MD Unavailable Unavailable Gil Chen MD Unavailable Unavailable Gil Chen MD Unavailable Unavailable Gil Chen MD Unavailable Unavailable Gil Chen MD Unavailable Unavailable Gil Chen MD Unavailable Unavailable Gil Chen MD Unavailable Unavailable Gil Chen MD Unavailable Unavailable Gil Chen MD Unavailable Unavailable Gil Chen MD Unavailable Unavailable Gil Chen MD Unavailable Unavailable Gil Chen MD Unavailable Unavailable Gil Chen MD Unavailable Unavailable Gil Chen MD Unavailable Unavailable Gil Chen MD Unavailable Unavailable Gil Chen MD Unavailable Unavailable Gil Chen MD Unavailable Unavailable Gil Chen MD Unavailable Unavailable Gil Chen MD Unavailable Unavailable Gil Chen MD Unavailable Unavailable Gil Chen MD Unavailable Unavailable Gil Chen MD Unavailable Unavailable Gil Chen MD Unavailable Unavailable Gil Chen MD Unavailable Unavailable Pleskach, Annmarie HELICOPTER CREW CHIEF Unavailable Unavailable Pleskach, Annmarie HELICOPTER CREW CHIEF Unavailable Unavailable Pleskach, Annmarie HELICOPTER CREW CHIEF Unavailable Unavailable Pleskach, Annmarie HELICOPTER CREW CHIEF Unavailable Unavailable Pleskach, Annmarie HELICOPTER CREW CHIEF Unavailable Unavailable Pleskach, Annmarie HELICOPTER CREW CHIEF Unavailable Unavailable Pleskach, Annmarie HELICOPTER CREW CHIEF Unavailable Unavailable Pleskach, Annmarie HELICOPTER CREW CHIEF Unavailable Unavailable Pleskach, Annmarie HELICOPTER CREW CHIEF Unavailable Unavailable Pleskach, Annmarie HELICOPTER CREW CHIEF Unavailable Unavailable Pleskach, Annmarie HELICOPTER CREW CHIEF Unavailable Unavailable Pleskach, Annmarie HELICOPTER CREW CHIEF Unavailable Unavailable Pleskach, Annmarie HELICOPTER CREW CHIEF Unavailable Unavailable Pleskach, Annmarie HELICOPTER CREW CHIEF Unavailable Unavailable Pleskach, Annmarie HELICOPTER CREW CHIEF Unavailable Unavailable Pleskach, Annmarie HELICOPTER CREW CHIEF Unavailable Unavailable Pleskach, Annmarie HELICOPTER CREW CHIEF Unavailable Unavailable Pleskach, Annmarie HELICOPTER CREW CHIEF Unavailable Unavailable Pleskach, Annmarie HELICOPTER CREW CHIEF Unavailable Unavailable Pleskach, Annmarie HELICOPTER CREW CHIEF Unavailable Unavailable Pleskach, Annmarie HELICOPTER CREW CHIEF Unavailable Unavailable Pleskach, Annmarie HELICOPTER CREW CHIEF Unavailable Unavailable Pleskach, Annmarie HELICOPTER CREW CHIEF Unavailable Unavailable Pleskach, Annmarie HELICOPTER CREW CHIEF Unavailable Unavailable Pleskach, Annmarie HELICOPTER CREW CHIEF Unavailable Unavailable Pleskach, Annmarie HELICOPTER CREW CHIEF Unavailable Unavailable Pleskach, Annmarie HELICOPTER CREW CHIEF Unavailable Unavailable Pleskach, Annmarie HELICOPTER CREW CHIEF Unavailable Unavailable Pleskach, Annmarie HELICOPTER CREW CHIEF Unavailable Unavailable Pleskach, Annmarie HELICOPTER CREW CHIEF Unavailable Unavailable Pleskach, Annmarie HELICOPTER CREW CHIEF Unavailable Unavailable Pleskach, Annmarie HELICOPTER CREW CHIEF Unavailable Unavailable Pleskach, Annmarie HELICOPTER CREW CHIEF Unavailable Unavailable Pleskach, Annmarie HELICOPTER CREW CHIEF Unavailable Unavailable Pleskach, Annmarie HELICOPTER CREW CHIEF Unavailable Unavailable Pleskach, Annmarie HELICOPTER CREW CHIEF Unavailable Unavailable Pleskach, Annmarie HELICOPTER CREW CHIEF Unavailable Unavailable Pleskach, Annmarie HELICOPTER CREW CHIEF Unavailable Unavailable Pleskach, Annmarie HELICOPTER CREW CHIEF Unavailable Unavailable Pleskach, Annmarie HELICOPTER CREW CHIEF Unavailable Unavailable Pleskach, Annmarie HELICOPTER CREW CHIEF Unavailable Unavailable Pleskach, Annmarie HELICOPTER CREW CHIEF Unavailable Unavailable Pleskach, Annmarie HELICOPTER CREW CHIEF Unavailable Unavailable Pleskach, Annmarie HELICOPTER CREW CHIEF Unavailable Unavailable SOJEWICZ, GREGORY PA Unavailable Unavailable SOJEWICZ, GREGORY PA Unavailable Unavailable SOJEWICZ, GREGORY PA Unavailable Unavailable SOJEWICZ, GREGORY PA Unavailable Unavailable SOJEWICZ, GREGORY PA Unavailable Unavailable SOJEWICZ, GREGORY PA Unavailable Unavailable SOJEWICZ, GREGORY PA Unavailable Unavailable SOJEWICZ, GREGORY PA Unavailable Unavailable SOJEWICZ, GREGORY PA Unavailable Unavailable SOJEWICZ, GREGORY PA Unavailable Unavailable SOJEWICZ, GREGORY PA Unavailable Unavailable SOJEWICZ, GREGORY PA Unavailable Unavailable SOJEWICZ, GREGORY PA Unavailable Unavailable SOJEWICZ, GREGORY PA Unavailable Unavailable SOJEWICZ, GREGORY PA Unavailable Unavailable SOGREGORY PAIGE PA Unavailable Unavailable SOGREGORY PAIGE PA Unavailable Unavailable SOGREGORY PAIGE PA Unavailable Unavailable SOGREGORY PAIGE PA Unavailable Unavailable SOGREGORY PAIGE PA Unavailable Unavailable SOGREGORY PAIGE PA Unavailable Unavailable SOGREGORY PAIGE PA Unavailable Unavailable SOGREGORY PAIGE PA Unavailable Unavailable SOGREGORY PAIGE PA Unavailable Unavailable SOGREGORY PAIGE PA Unavailable Unavailable SOGREGORY PAIGE PA Unavailable Unavailable SOGREGORY PAIGE PA Unavailable Unavailable SOGREGORY PAIGE PA Unavailable Unavailable SOGREGORY PAIGE PA Unavailable Unavailable SOGREGORY PAIGE PA Unavailable Unavailable SOGREGORY PAIGE PA Unavailable Unavailable SOGREGORY PAIGE PA Unavailable Unavailable SOGREGORY PAIGE PA Unavailable Unavailable SOGREGORY PAIGE PA Unavailable Unavailable SOGREGORY PAIGE PA Unavailable Unavailable SOGREGORY PAIGE PA Unavailable Unavailable SOGREGORY PAIGE PA Unavailable Unavailable SOGREGORY PAIGE PA Unavailable Unavailable Trickey, J Gardenia PA Unavailable Unavailable Trickey, J Gardenia PA Unavailable Unavailable Trickey, J Gardenia PA Unavailable Unavailable Trickey, J Gardenia PA Unavailable Unavailable Trickey, J Gardenia PA Unavailable Unavailable Trickey, J Gardenia PA Unavailable Unavailable Trickey, J Gardenia PA Unavailable Unavailable Trickey, J Gardenia PA Unavailable Unavailable Trickey, J Gardenia PA Unavailable Unavailable Trickey, J Gardenia PA Unavailable Unavailable Trickey, J Gardenia PA Unavailable Unavailable Trickey, J Gardenia PA Unavailable Unavailable Trickey, J Gardenia PA Unavailable Unavailable Trickey, J Gardenia PA Unavailable Unavailable Trickey, J Gardenia PA Unavailable Unavailable Trickey, J Gardenia PA Unavailable Unavailable Trickey, J Gardenia PA Unavailable Unavailable Trickey, J Gardenia PA Unavailable Unavailable Trickey, J Gardenia PA Unavailable Unavailable Trickey, J Gardenia PA Unavailable Unavailable Trickey, J Gardenia PA Unavailable Unavailable Trickey, J Gardenia PA Unavailable Unavailable Trickey, J Gardenia PA Unavailable Unavailable Trickey, J Gardenia PA Unavailable Unavailable Trickey, J Gardenia PA Unavailable Unavailable Trickey, J Gardenia PA Unavailable Unavailable Trickey, J Gardenia PA Unavailable Unavailable Trickey, J Gardenia PA Unavailable Unavailable Trickey, J Gardenia PA Unavailable Unavailable Trickey, J Gardenia PA Unavailable Unavailable Trickey, J Gardenia PA Unavailable Unavailable Trickey, J Gardenia PA Unavailable Unavailable Trickey, J Gardenia PA Unavailable Unavailable Trickey, J Gardenia PA Unavailable Unavailable Trickey, J Gardenia PA Unavailable Unavailable Trickey, J Gardenia PA Unavailable Unavailable Trickey, J Gardenia PA Unavailable Unavailable Trickey, J Gardenia PA Unavailable Unavailable Trickey, J Gardenia PA Unavailable Unavailable Trickey, J Gardenia PA Unavailable Unavailable Trickey, J Gardenia PA Unavailable Unavailable Trickey, J Gardenia PA Unavailable Unavailable Trickey, J Gardenia PA Unavailable Unavailable Trickey, J Gardenia PA Unavailable Unavailable Trickey, J Gardenia PA Unavailable Unavailable Trickey, J Gardenia PA Unavailable Unavailable Trickey, J Gardenia PA Unavailable Unavailable Trickey, J Gardenia PA Unavailable Unavailable Trickey, J Gardenia PA Unavailable Unavailable Renata, M Barratt PA Unavailable Unavailable Renata, M Barratt PA Unavailable Unavailable Renata, M Meraryatt PA Unavailable Unavailable Renata, M Meraryatt PA Unavailable Unavailable Renata, M Meraryatt PA Unavailable Unavailable Renata, M Barratt PA Unavailable Unavailable Yanez, M Barratt PA Unavailable Unavailable Renata, M Barratt PA Unavailable Unavailable Renata, M Barratt PA Unavailable Unavailable Renata, M Meraryatt PA Unavailable Unavailable Renata, M Barratt PA Unavailable Unavailable Yanez, M Barratt PA Unavailable Unavailable Yanez, M Barratt PA Unavailable Unavailable Yanez, M Barratt PA Unavailable Unavailable Yanez, M Barratt PA Unavailable Unavailable Yanez, M Barratt PA Unavailable Unavailable Yanez, M Barratt PA Unavailable Unavailable Yanez, M Barratt PA Unavailable Unavailable Yanez, M Barratt PA Unavailable Unavailable Yanez, M Barratt PA Unavailable Unavailable Yanez, M Barratt PA Unavailable Unavailable Yanez, M Barratt PA Unavailable Unavailable Yanez, M Barratt PA Unavailable Unavailable Renata, M Barratt PA Unavailable Unavailable Yanez, M Barratt PA Unavailable Unavailable Yanez, M Barratt PA Unavailable Unavailable Yanez, M Barratt PA Unavailable Unavailable Yanez, M Barratt PA Unavailable Unavailable Yanez, M Barratt PA Unavailable Unavailable Pleskach, Annmarie HELICOPTER CREW CHIEF Unavailable Unavailable Pleskach, Annmarie HELICOPTER CREW CHIEF Unavailable Unavailable Pleskach, Annmarie HELICOPTER CREW CHIEF Unavailable Unavailable Pleskach, Annmarie HELICOPTER CREW CHIEF Unavailable Unavailable Pleskach, Annmarie HELICOPTER CREW CHIEF Unavailable Unavailable Pleskach, Annmarie HELICOPTER CREW CHIEF Unavailable Unavailable Pleskach, Annmarie HELICOPTER CREW CHIEF Unavailable Unavailable Pleskach, Annmarie HELICOPTER CREW CHIEF Unavailable Unavailable Pleskach, Annmarie HELICOPTER CREW CHIEF Unavailable Unavailable Pleskach, Annmarie HELICOPTER CREW CHIEF Unavailable Unavailable Pleskach, Annmarie HELICOPTER CREW CHIEF Unavailable Unavailable Pleskach, Annmarie HELICOPTER CREW CHIEF Unavailable Unavailable Pleskach, Annmarie HELICOPTER CREW CHIEF Unavailable Unavailable Pleskach, Annmarie HELICOPTER CREW CHIEF Unavailable Unavailable Pleskach, Annmarie HELICOPTER CREW CHIEF Unavailable Unavailable Pleskach, Annmarie HELICOPTER CREW CHIEF Unavailable Unavailable Pleskach, Annmarie HELICOPTER CREW CHIEF Unavailable Unavailable Pleskach, Annmarie HELICOPTER CREW CHIEF Unavailable Unavailable Pleskach, Annmarie HELICOPTER CREW CHIEF Unavailable Unavailable Pleskach, Annmarie HELICOPTER CREW CHIEF Unavailable Unavailable Pleskach, Annmarie HELICOPTER CREW CHIEF Unavailable Unavailable Pleskach, Annmarie HELICOPTER CREW CHIEF Unavailable Unavailable Pleskach, Annmarie HELICOPTER CREW CHIEF Unavailable Unavailable Pleskach, Annmarie HELICOPTER CREW CHIEF Unavailable Unavailable Pleskach, Annmarie HELICOPTER CREW CHIEF Unavailable Unavailable Pleskach, Annmarie HELICOPTER CREW CHIEF Unavailable Unavailable Pleskach, Annmarie HELICOPTER CREW CHIEF Unavailable Unavailable Pleskach, Annmarie HELICOPTER CREW CHIEF Unavailable Unavailable Pleskach, Annmarie HELICOPTER CREW CHIEF Unavailable Unavailable Pleskach, Annmarie HELICOPTER CREW CHIEF Unavailable Unavailable Pleskach, Annmarie HELICOPTER CREW CHIEF Unavailable Unavailable Pleskach, Annmarie HELICOPTER CREW CHIEF Unavailable Unavailable Pleskach, Annmarie HELICOPTER CREW CHIEF Unavailable Unavailable Pleskach, Annmarie HELICOPTER CREW CHIEF Unavailable Unavailable Pleskach, Annmarie HELICOPTER CREW CHIEF Unavailable Unavailable Pleskach, Annmarie HELICOPTER CREW CHIEF Unavailable Unavailable Pleskach, Annmarie HELICOPTER CREW CHIEF Unavailable Unavailable Pleskach, Annmarie HELICOPTER CREW CHIEF Unavailable Unavailable Pleskach, Annmarie HELICOPTER CREW CHIEF Unavailable Unavailable Pleskach, Annmarie HELICOPTER CREW CHIEF Unavailable Unavailable Pleskach, Annmarie HELICOPTER CREW CHIEF Unavailable Unavailable Pleskach, Annmarie HELICOPTER CREW CHIEF Unavailable Unavailable Pleskach, Annmarie HELICOPTER CREW CHIEF Unavailable Unavailable Pleskach, Annmarie HELICOPTER CREW CHIEF Unavailable Unavailable Gil Rader MD Unavailable Unavailable Gil Rader MD Unavailable Unavailable Gil Rader MD Unavailable Unavailable Gil Rader MD Unavailable Unavailable Gil Rader MD Unavailable Unavailable Gil Rader MD Unavailable Unavailable Gil Rader MD Unavailable Unavailable Gil Rader MD Unavailable Unavailable Gil Rader MD Unavailable Unavailable Gil Rader MD Unavailable Unavailable Gil Rader MD Unavailable Unavailable Gil Rader MD Unavailable Unavailable Gil Rader MD Unavailable Unavailable Gil Rader MD Unavailable Unavailable Gil Rader MD Unavailable Unavailable Gil Rader MD Unavailable Unavailable Greenky, S Red MD Unavailable Unavailable Greenky, S Red MD Unavailable Unavailable Greenky, S Red MD Unavailable Unavailable Greenky, S Red MD Unavailable Unavailable Greenky, S Red MD Unavailable Unavailable Greenky, S Red MD Unavailable Unavailable Greenky, S Red MD Unavailable Unavailable Greenky, S Red MD Unavailable Unavailable Greenky, S Red MD Unavailable Unavailable Greenky, S Red MD Unavailable Unavailable Greenky, S Red MD Unavailable Unavailable Greenky, S Red MD Unavailable Unavailable Greenky, S Red MD Unavailable Unavailable Greenky, S Rde MD Unavailable Unavailable Greenky, S Red MD Unavailable Unavailable Greenky, S Red MD Unavailable Unavailable Greenky, S Red MD Unavailable Unavailable Greenky, S Red MD Unavailable Unavailable Greenky, S Red MD Unavailable Unavailable Greenky, S Red MD Unavailable Unavailable Greenky, S Red MD Unavailable Unavailable Greenky, S Red MD Unavailable Unavailable Greenky, S Red MD Unavailable Unavailable Greenky, S Red MD Unavailable Unavailable Greenky, S Red MD Unavailable Unavailable Greenky, S Red MD Unavailable Unavailable Greenky, S Red MD Unavailable Unavailable Greenky, S Red MD Unavailable Unavailable Greenky, S Red MD Unavailable Unavailable Greenky, S Red MD Unavailable Unavailable Greenky, S Red MD Unavailable Unavailable Greenky, S Red MD Unavailable Unavailable Greenky, S Red MD Unavailable Unavailable Greenky, S Red MD Unavailable Unavailable Greenky, S Red MD Unavailable Unavailable Greenky, S Red MD Unavailable Unavailable Greenky, S Red MD Unavailable Unavailable Greenky, S Red MD Unavailable Unavailable Greenky, S Red MD Unavailable Unavailable Greenky, S Red MD Unavailable Unavailable Greenky, S Red MD Unavailable Unavailable Greenky, S Red MD Unavailable Unavailable Greenky, S Red MD Unavailable Unavailable Greenky, S Red MD Unavailable Unavailable Greenky, S Red MD Unavailable Unavailable Greenky, S Red MD Unavailable Unavailable Greenky, S Red MD Unavailable Unavailable Greenky, S Red MD Unavailable Unavailable Greenky, S Red MD Unavailable Unavailable Greenky, S Red MD Unavailable Unavailable Greenky, S Red MD Unavailable Unavailable Greenky, S Red MD Unavailable Unavailable Greenky, S Red MD Unavailable Unavailable Greenky, S Red MD Unavailable Unavailable Greenky, S Red MD Unavailable Unavailable Greenky, S Red MD Unavailable Unavailable Greenky, S Red MD Unavailable Unavailable Greenky, S Red MD Unavailable Unavailable Greenky, S Red MD Unavailable Unavailable Greenky, S Red MD Unavailable Unavailable Greenky, S Red MD Unavailable Unavailable Greenky, S Red MD Unavailable Unavailable Greenky, S Red MD Unavailable Unavailable Greenky, S Red MD Unavailable Unavailable Greenky, S Red MD Unavailable Unavailable Greenky, S Red MD Unavailable Unavailable Greenky, S Red MD Unavailable Unavailable Greenky, S Red MD Unavailable Unavailable Greenky, S Red MD Unavailable Unavailable Greenky, S Red MD Unavailable Unavailable Greenky, S Red MD Unavailable Unavailable Greenky, S Red MD Unavailable Unavailable Greenky, S Red MD Unavailable Unavailable Fish, B Miquel CONTRERAS Unavailable Unavailable Fish, B Miquel CONTRERAS Unavailable Unavailable Fish, B Miquel CONTRERAS Unavailable Unavailable Fish, B Miquel CONTRERAS Unavailable Unavailable Fish, B Miquel CONTRERAS Unavailable Unavailable Fish, B Miquel CONTRERAS Unavailable Unavailable Fish, B Miquel CONTRERAS Unavailable Unavailable Fish, B Miqule CONTRERAS Unavailable Unavailable Fish, B Miquel CONTRERAS Unavailable Unavailable Fish, B Miquel CONTRERAS Unavailable Unavailable Fish, B Miquel CONTRERAS Unavailable Unavailable Fish, B Miquel CONTRERAS Unavailable Unavailable Fish, B Miquel CONTRERAS Unavailable Unavailable Fish, B Miquel CONTRERAS Unavailable Unavailable Fish, B Miquel CONTRERAS Unavailable Unavailable Fish, B Miquel CONTRERAS Unavailable Unavailable Fish, B Miquel CONTRERAS Unavailable Unavailable Fish, B Miquel CONTRERAS Unavailable Unavailable Fish, B Miquel CONTRERAS Unavailable Unavailable Fish, Dylan Lafleur MD Unavailable Unavailable Fish, B Miquel CONTRERAS Unavailable Unavailable Fish, B Miquel CONTRERAS Unavailable Unavailable Fish, B Miquel CONTRERAS Unavailable Unavailable Fish, B Miquel CONTRERAS Unavailable Unavailable Fish, Dylan Lafleur MD Unavailable Unavailable Fish, B Miquel CONTRERAS Unavailable Unavailable Fish, B Miquel CONTRERAS Unavailable Unavailable Fish, Dylan Lafleur MD Unavailable Unavailable Fish, Dylan Lafleur MD Unavailable Unavailable Fish, Dylan Lafleur MD Unavailable Unavailable Fish, Dylan Lafleur MD Unavailable Unavailable Fish, Dylan Lafleur MD Unavailable Unavailable Fish, Dylan Lafleur MD Unavailable Unavailable Fish, Dylan Lafleur MD Unavailable Unavailable Fish, B Miquel CONTRERAS Unavailable Unavailable Fish, B Miquel CONTRERAS Unavailable Unavailable Fish, B Miquel CONTRERAS Unavailable Unavailable Fish, B Miquel CONTRERAS Unavailable Unavailable Fish, B Miquel CONTRERAS Unavailable Unavailable Fish, B Miquel CONTRERAS Unavailable Unavailable Fish, Dylan Lafleur MD Unavailable Unavailable Fish, Dylan Lafleur MD Unavailable Unavailable Fish, B Miquel CONTRERAS Unavailable Unavailable Fish, B Miquel CONTRERAS Unavailable Unavailable Fish, Dylan Lafleur MD Unavailable Unavailable Fish, B Miquel CONTRERAS Unavailable Unavailable Fish, B Miquel CONTRERAS Unavailable Unavailable Fish, Dylan Lafleur MD Unavailable Unavailable Fish, B Miquel CONTRERAS Unavailable Unavailable Fish, B Miquel CONTRERAS Unavailable Unavailable Fish, B Miquel CONTRERAS Unavailable Unavailable Fish, B Miquel CONTRERAS Unavailable Unavailable Fish, B Miquel CONTRERAS Unavailable Unavailable Fish, B Miquel CONTRERAS Unavailable Unavailable Fish, B Miquel CONTRERAS Unavailable Unavailable Fish, B Miquel CONTRERAS Unavailable Unavailable Symenow, Yolie Sabiha PA Unavailable Unavailable Symenow, Yolie Sabiha PA Unavailable Unavailable Symenow, Yolie Sabiha PA Unavailable Unavailable Symenow, Yolie Sabiha PA Unavailable Unavailable Symenow, Yolie Sabiha PA Unavailable Unavailable Symenow, Yolie Sabiha PA Unavailable Unavailable Symenow, Yolie Sabiha PA Unavailable Unavailable Symenow, Yolie Sabiha PA Unavailable Unavailable Symenow, Yolie Sabiha PA Unavailable Unavailable Symenow, Yolie Sabiha PA Unavailable Unavailable Symenow, Yolie Sabiha PA Unavailable Unavailable Symenow, Yolie Sabiha PA Unavailable Unavailable Symenow, Yolie Sabiha PA Unavailable Unavailable Symenow, Yolie Sabiha PA Unavailable Unavailable Symenow, Yolie Sabiha PA Unavailable Unavailable Symenow, Yolie Sabiha PA Unavailable Unavailable Symenow, Yolie Sabiha PA Unavailable Unavailable Symenow, Yolie Sabiha PA Unavailable Unavailable Symenow, Yolie Sabiha PA Unavailable Unavailable Symenow, Yolie Sabiha PA Unavailable Unavailable Symenow, Yolie Sabiha PA Unavailable Unavailable Symenow, Yolie Sabiha PA Unavailable Unavailable Symenow, Yolie Sabiha PA Unavailable Unavailable Symenow, Yolie Sabiha PA Unavailable Unavailable Symenow, Yolie Sabiha PA Unavailable Unavailable Symenow, Yolie Sabiha PA Unavailable Unavailable Symenow, Yolie Sabiha PA Unavailable Unavailable Symenow, Yolie Sabiha PA Unavailable Unavailable Symenow, Yolie Sabiha PA Unavailable Unavailable Symenow, Yolie Sabiha PA Unavailable Unavailable Symenow, Yolie Sabiha PA Unavailable Unavailable Symenow, Yolie Sabiha PA Unavailable Unavailable Symenow, Yolie Sabiha PA Unavailable Unavailable Symenow, Yolie Sabiha PA Unavailable Unavailable Giordano, D Valencia HELICOPTER CREW CHIEF-C Unavailable Unavailable Giordano, D Valencia HELICOPTER CREW CHIEF-C Unavailable Unavailable Giordano, D Valencia HELICOPTER CREW CHIEF-C Unavailable Unavailable Giordano, D Valencia HELICOPTER CREW CHIEF-C Unavailable Unavailable Giordano, D Valencia HELICOPTER CREW CHIEF-C Unavailable Unavailable Giordano, D Valencia HELICOPTER CREW CHIEF-C Unavailable Unavailable Giordano, D Valencia HELICOPTER CREW CHIEF-C Unavailable Unavailable DRAZEK, I DESI PA Unavailable Unavailable DRAZEK, I DESI PA Unavailable Unavailable DRAZEK, I DESI PA Unavailable Unavailable DRAZEK, I DESI PA Unavailable Unavailable DRAZEK, I DESI PA Unavailable Unavailable DRAZEK, I DESI PA Unavailable Unavailable DRAZEK, I DESI PA Unavailable Unavailable DRAZEK, I DESI PA Unavailable Unavailable DRAZEK, I DESI PA Unavailable Unavailable DRAZEK, I DESI PA Unavailable Unavailable DRAZEK, I DESI PA Unavailable Unavailable DRAZEK, I DESI PA Unavailable Unavailable DRAZEK, I DESI PA Unavailable Unavailable DRAZEK, I DESI PA Unavailable Unavailable DRAZEK, I DESI PA Unavailable Unavailable DRAZEK, I DESI PA Unavailable Unavailable DRAZEK, I DESI PA Unavailable Unavailable DRAZEK, I DESI PA Unavailable Unavailable DRAZEK, I DESI PA Unavailable Unavailable DRAZEK, I DESI PA Unavailable Unavailable DRAZEK, I DESI PA Unavailable Unavailable DRAZEK, I DESI PA Unavailable Unavailable DRAZEK, I DESI PA Unavailable Unavailable DRAZEK, I DESI PA Unavailable Unavailable DRAZEK, I DESI PA Unavailable Unavailable DRAZEK, I DESI PA Unavailable Unavailable DRAZEK, I DESI PA Unavailable Unavailable DRAZEK, I DESI PA Unavailable Unavailable DRAZEK, I DESI PA Unavailable Unavailable DRAZEK, I DESI PA Unavailable Unavailable Andrea Figueroa MD Unavailable Unavailable Andrea Figueroa MD Unavailable Unavailable Andrea Figueroa MD Unavailable Unavailable Andrea Figueroa MD Unavailable Unavailable Andrea Figueroa MD Unavailable Unavailable Andrea Figueroa MD Unavailable Unavailable Andrea Figueroa MD Unavailable Unavailable Andrea Figueroa MD Unavailable Unavailable Andrea Figueroa MD Unavailable Unavailable Andrea Figueroa MD Unavailable Unavailable Figueroa, Andrea Huynh MD Unavailable Unavailable Figueroa, Andrea Huynh MD Unavailable Unavailable Figueroa, Andrea Huynh MD Unavailable Unavailable Figueroa, Andrea Huynh MD Unavailable Unavailable Figueroa, Andrea Huynh MD Unavailable Unavailable Figueroa, Andrea Huynh MD Unavailable Unavailable Figueroa, Andrea Huynh MD Unavailable Unavailable Figueroa, Andrea Huynh MD Unavailable Unavailable Figueroa, Andrea Huynh MD Unavailable Unavailable Figueroa, Andrea Huynh MD Unavailable Unavailable Figueroa, Andrea Huynh MD Unavailable Unavailable Figueroa, Andrea Huynh MD Unavailable Unavailable Figueroa, Andrea Huynh MD Unavailable Unavailable Figueroa, Andrea Huynh MD Unavailable Unavailable Figueroa, Andrea Huynh MD Unavailable Unavailable Figueroa, Andrea Huynh MD Unavailable Unavailable Figueroa, Andrea Huynh MD Unavailable Unavailable Figueroa, Andrea Huynh MD Unavailable Unavailable Figueroa, Andrea Huynh MD Unavailable Unavailable Figueroa, Andrea Huynh MD Unavailable Unavailable Figueroa, Andrea Huynh MD Unavailable Unavailable Figueroa, Andrea Huynh MD Unavailable Unavailable Figueroa, Andrea Huynh MD Unavailable Unavailable Figueroa, Andrea Huynh MD Unavailable Unavailable Figueroa, Andrea Huynh MD Unavailable Unavailable Figueroa, Andrea Huynh MD Unavailable Unavailable Figueroa, Andrea Huynh MD Unavailable Unavailable Figueroa, Andrea Huynh MD Unavailable Unavailable Figueroa, Andrea Huynh MD Unavailable Unavailable Figueroa, Andrea Huynh MD Unavailable Unavailable Figueroa, Andrea Huynh MD Unavailable Unavailable Figueroa, Andrea Huynh MD Unavailable Unavailable Figueroa, Andrea Huynh MD Unavailable Unavailable Figueroa, Andrea Huynh MD Unavailable Unavailable Figueroa, Andrea Huynh MD Unavailable Unavailable Figueroa, Andrea Huynh MD Unavailable Unavailable Figueroa, Andrea Huynh MD Unavailable Unavailable Figueroa, Andrea Huynh MD Unavailable Unavailable Figueroa, Andrea Huynh MD Unavailable Unavailable Figueroa, Andrea Huynh MD Unavailable Unavailable Figueroa, Andrea Huynh MD Unavailable Unavailable Figueroa, Andrea Huynh MD Unavailable Unavailable Figueroa, Andrea Huynh MD Unavailable Unavailable Figueroa, Andrea Huynh MD Unavailable Unavailable JOAN, A JULIETH DO Unavailable Unavailable JOAN, A JULIETH DO Unavailable Unavailable JOAN, A JULIETH DO Unavailable Unavailable JOAN, A JULIETH DO Unavailable Unavailable JOAN, A JULIETH DO Unavailable Unavailable JOAN, A JULIETH DO Unavailable Unavailable JOAN, A JULIETH DO Unavailable Unavailable JOAN, A JULIETH DO Unavailable Unavailable JOAN, A JULIETH DO Unavailable Unavailable JOAN, A JULIETH DO Unavailable Unavailable JOAN, A JULIETH DO Unavailable Unavailable JOAN, A JULIETH DO Unavailable Unavailable JOAN, A JULIETH DO Unavailable Unavailable JOAN, A JULIETH DO Unavailable Unavailable JOAN, A JULIETH DO Unavailable Unavailable JOAN, A JULIETH DO Unavailable Unavailable JOAN, A JULIETH DO Unavailable Unavailable JOAN, A JULIETH DO Unavailable Unavailable JOAN, A JULIETH DO Unavailable Unavailable JOAN, A JULIETH DO Unavailable Unavailable JOAN, A JULIETH DO Unavailable Unavailable JOAN, A JULIETH DO Unavailable Unavailable JOAN, A JULIETH DO Unavailable Unavailable Re-disclosure Warning The records that you are about to access may contain information from federally-assisted alcohol or drug abuse programs. If such information is present, then the following federally mandated warning applies: This information has been disclosed to you from records protected by federal confidentiality rules (42 CFR part 2). The federal rules prohibit you from making any further disclosure of this information unless further disclosure is expressly permitted by the written consent of the person to whom it pertains or as otherwise permitted by 42 CFR part 2. A general authorization for the release of medical or other information is NOT sufficient for this purpose. The Federal rules restrict any use of the information to criminally investigate or prosecute any alcohol or drug abuse patient.The records that you are about to access may contain highly sensitive health information, the redisclosure of which is protected by Article 27-F of the [facility] Public Health law. If you continue you may have access to information: Regarding HIV / AIDS; Provided by facilities licensed or operated by the [facility] Office of Mental Health; or Provided by the [facility] Office for People With Developmental Disabilities. If such information is present, then the following [facility] mandated warning applies: This information has been disclosed to you from confidential records which are protected by state law. State law prohibits you from making any further disclosure of this information without the specific written consent of the person to whom it pertains, or as otherwise permitted by law. Any unauthorized further disclosure in violation of state law may result in a fine or correction sentence or both. A general authorization for the release of medical or other information is NOT sufficient authorization for further disc losure. Allergies and Adverse Reactions Type Description Substance Reaction Status Data Source(s ) Allergy to substance No Known Allergies No known allergies (situation ) MARY KAY (Abiodun Moore MD [facility]) Allergy to substance No Known Allergies No known allergies (situation ) MARY KAY (Abiodun Moore MD [facility]) Family History Family Member Name Family Member Gender Family Member Status Date o f Status Description Data Source(s) Unknown Male Problem [facility] ([facility]) Encounters Encounter Providers Location Date Indications Data Source(s ) Outpatient Attender: Wanda Foy: Miquel Benson MD 09/12/2021 10:04:56 AM EDT [facility] Outpatient Attender: Anuj Chen MD Main Office 08/20/2021 02:30:00 PM EDT [facility] ([facility]) Outpatient [address] [facility] [id number] 07/26/2021 12:00:00 AM EDT eCW1 ([facility]) Outpatient Attender: Lino Méndez/Michael/Geoff/Kristen osman 07/01/2021 11:30:00 AM EDT [facility] ([facility] Outpatient Attender: Valencia BARONP-C Main Office 06/25/2021 11:15:00 AM EDT [facility] ([facility]) Outpatient Attender: Sabiha SWENSON Main Office 06/21/2021 08:45:00 AM EDT [facility] ([facility]) Outpatient [address] [facility] [id number] 06/14/2021 12:00:00 AM EDT eCW1 ([facility]) Outpatient Attender: Wanda Tranerrer: Annmarie Gagnon [facility] 06/04/2021 11:26:25 AM EDT [facility] Outpatient Attender: Annmarie Gagnon [facility] Main Office 05/15/2021 1 1:30:00 AM EDT [facility] ([facility] Outpatient Attender: Red MCKEONeferrer: Annmarie ochoa [facility] 04/17/2021 12:45:28 PM EDT [facility] Outpatient Attender: Wanda Vazquezer: Annmarie Gagnon [facility] 04/03/2021 10:03:23 AM EDT [facility] Outpatient Attender: GREGORY MCFADDENeferrer: Annmarie mosley [facility] 03/05/2021 05:41:55 PM EDT [facility] Recurring Patient Attender: Red Rader MDReferrer: Miquel Benson MD 03/05/2021 01:18:29 PM EDT [facility] Outpatient Attender: Annmarie Gagnon [facility] Main Office 03/04/2021 0 9:30:00 AM EDT [facility] ([facility] Recurring Patient Referrer: Miquel Benson MD 02/26/2021 12:5 8:11 PM EDT [facility] Outpatient Referrer: Red Rader MD [facility] 2020 08:54:32 AM EDT - 02/16/2021 08:54:36 AM EDT [facility] Outpatient Attender: Red Rader MDReferrer: Annmarie ochoa [employer] 02/13/2021 12:45:55 PM EDT [facility] Outpatient Attender: Red Rader MDReferrer: Red Rader MD [facility] 02/08/2021 01:12:46 PM EDT - 02/08/2021 02:12:58 PM EDT [facility] Recurring Patient Referrer: Miquel Benson MD 02/08/2021 10:4 3:02 AM EDT [facility] Recurring Patient Referrer: Miquel Benson MD 02/05/2021 07:4 3:38 AM EDT [facility] Inpatient Attender: Red Rader MDAdmitter: Red Rader MD [id number] 02/04/2021 03:37:07 PM EDT - 02/22/2021 12:32:00 PM EDT [facility] Patient discharged. Outpatient Attender: Red Rader MDReferrer: Annmarie ochoa [employer] 01/29/2021 12:33:55 PM EST [facility] Recurring Patient Referrer: Miquel Benson MD 01/29/2021 09:2 4:10 AM EST [facility] Recurring Patient Referrer: Miquel Benson MD 01/24/2021 02:1 7:38 PM EST [facility] Recurring Patient Referrer: Miquel Benson MD 01/21/2021 03:1 0:07 PM EST [facility] Outpatient Attender: Sabiha SWENSON Main Office 01/10/2021 09:15:00 AM EST [facility] ([facility]) Office Visit Attender: Keshav SWENSON Physical Therapy 01:00:00 PM EST [facility] ([facility]) Outpatient Attender: Annmarie Gagnon [facility] Main Office 01/03/2021 0 8:15:00 AM EST [facility] ([facility] <td ID="encounterTypeDescriptionID0">1 W K PREOP FOR SURGERY</td><td>Julieth Chen DO</td><td>Abiodun Leblanc MD [facility]</td><td>01/02/2021</td><td>2:27PM</td><td>3:55PM</td><td><content ID="encounterDiagnosisID0-0">Cataract Senile Nuclear</content>, <content ID="encounterDiagnosisID0-1">Cataract Senile Nuclear</content></td>Outpatient Attender: JULIETH Vargas MD [facility] 01/02/2021 02:27:00 PM EST - 01/02/2021 03:55:00 PM EST Cataract Senile NuclearCataract Senile Nuclear MARY KAY (Abiodun Moore MD [facility]) Cataract Senile Nuclear Cataract Senile Nuclear Office Visit Attender: Gardenia SWENSON Main office - [facility] 12/18/2020 10:15:00 AM EST [facility] ([facility] Outpatient Attender: Miquel Benson MD Physical Therapy 12/12/2020 1 2:15:00 PM EST [facility] ([facility]) Outpatient Attender: Annmarie Gagnon [facility] Main Office 11/14/2020 0 9:15:00 AM EST [facility] ([facility] OFFICE OUTPATIENT VISIT 15 MINUTES Attender: DESI SWENSON Phys ical Therapy 11/05/2020 07:30:00 AM EST [facility] ([facility]) Office Visit Attender: DESI SWENSON Physical Therapy 2019 02:40:00 PM EST [facility] ([facility]) OFFICE OUTPATIENT VISIT 15 MINUTES Attender: DESI SWENSON Phys ical Therapy 10/25/2020 09:45:00 AM EST [facility] ([facility]) OFFICE OUTPATIENT VISIT 15 MINUTES Attender: DESI SWENSON Phys ical Therapy 10/17/2020 10:30:00 AM EST [facility] ([facility]) Outpatient Attender: Gardenia SWENSON Main office - [facility] 09/17/2020 10:30:00 AM EDT [facility] ([facility]) Outpatient<td ID="encounterTypeDescripti onID1">1 Year Follow-Up</td><td>Julieth Chen DO</td><td>Abiodun Leblanc MD [facility]</td><td>08/15/2020</td><td>10:01AM</td><td>11:10AM</td><td><content ID="encounterDiagnosisID1-0">Benign Choroid Eye Neoplasm Left</content>, <content ID="encounterDiagnosisID1-1">Cataract Senile Nuclear</content>, <content ID="encounterDiagnosisID1-2">Chorioretinal Scar</content>, <content ID="encounterDiagnosisID1-3">Dry Eye Syndrome Both Eyes</content>, <content ID="encounterDiagnosisID1-4">Macular Puckering</content>, <content ID="encounterDiagnosisID1-5">Blepharitis Squamous</content>, <content ID="encounterDiagnosisID1-6">Vitreous Disorders Degeneration</content>, <content ID="encounterDiagnosisID1-7">Pseudophakia</content></td> Attender: [facility] 10:01:00 AM EDT - 08/15/2020 11:10:00 AM EDT PseudophakiaMacular PuckeringPseudophaki aMacular PuckeringBenign Choroid Eye Neoplasm LeftBenign Choroid Eye Neoplasm LeftVitreous Disorders DegenerationBlepharitis SquamousDry Eye Syndrome Both EyesChorioretinal ScarCataract Senile NuclearVitreous Disorders DegenerationBlepharitis SquamousDry Eye Syndrome Both EyesChorioretinal ScarCataract Senile Nuclear MARY KAY (Abiodun Moore MD [facility]) 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 IIV4 09/12/2021 10:29:00 AM EDT completed [facility] ([facility] INFLUENZA VIRUS VACCINE QUADRIVAL SPLIT (65 YR UP)/PF 08/30/2020 12:00:00 AM EDT completed [facility] Medications Medication Brand Name Start Date Product Form Dose Route Admi nistrative Instructions Pharmacy Instructions Status Indications Reaction Description Data Source(s) 5 mg 10/08/2021 12:00:00 AM EST tablet 90 TAKE ONE TABLET BY MOUTH EVERY DAY TAKE ONE TABLET BY MOUTH EVERY DAY SOLD: 10/12/2021 [facility] carvedilol 12.5 MG Oral Tablet CARVEDILOL 09/23/2021 12:00:00 AM EDT tablet 180 TAKE ONE TABLET BY MOUTH TWICE A DAY TAKE ONE TABLET BY MOUT H TWICE A DAY SOLD: 09/24/2021 [facility] Paroxetine Hydrochloride 10 MG Oral Tablet PAROXETINE HCL 09/16/2021 12:00:00 AM EDT tablet 90 TAKE ONE TABLET BY MOUTH STEPHANIE TAKE ONE TABLET BY MOUTH EVERY DAY SOLD: 09/20/2021 [facility] Cyclobenzaprine hydrochloride 10 MG Oral Tablet CYCLOBENZAPR INE HCL 09/05/2021 12:00:00 AM EDT tablet 30 TAKE ONE TABLET BY MOUTH TWICE A DAY TAKE ONE TABLET BY MOUTH TWICE A DAY SOLD: 09/10/2021 [facility] 1 gram 08/21/2021 12:00:00 AM EDT tablet 60 TAKE ONE TABLET BY MOUTH TWICE A DAY TAKE ONE TABLET BY MOUTH TWICE A DAY SOLD: 08/22/2021 [facility] Aluminum Hydroxide 160 MG / magnesium ca rbonate 105 MG Chewable Tablet [Acid Gone] 160-105 mg MAGNESIUM CARB/ALUMINUM HYDROX 08/21/2021 12:00:00 AM EDT tablet,chewable 360 CHEW ONE TABLET BY M OUTH FOUR TIMES A DAY BEFORE MEALS AND AT BEDTIME CHEW ONE TABLET BY MOUTH FOUR TIMES A DA Y BEFORE MEALS AND AT BEDTIME SOLD: 08/22/2021 [facility] Aluminum Hydroxide 160 MG / magnesium carbonate 105 MG Chewable Tablet Gaviscon Extra Strength 08/20/2021 12:00:00 AM EDT ORAL active [facility] ([facility]) Sucralfate 1000 MG Oral Tablet [Carafate] Carafate 08/20/2021 1 2:00:00 AM EDT ORAL active [facility] ([facility]) Digoxin 0.125 MG Oral Tablet 125 mcg (0.125 mg) DIGOXIN 07/16/2021 12:00:00 AM EDT tablet 90 TAKE ONE TABLET BY MOUTH STEPHANIE RY DAY TAKE ONE TABLET BY MOUTH EVERY DAY SOLD: 07/17/2021 [facility] 5 mg 07/16/2021 12:00:00 AM EDT tablet 90 TAKE ONE TABLET BY MOUTH EVERY DAY TAKE ONE TABLET BY MOUTH EVERY DAY SOLD: 07/17/2021 [facility] 10 mg 06/24/2021 12:00:00 AM EDT tablet 90 TAKE ONE TABLET BY MOUTH EVERY DAY TAKE ONE TABLET BY MOUTH EVERY DAY SOLD: 06/26/2021 [facility] 10 mg 06/24/2021 12:00:00 AM EDT tablet 90 TAKE ONE TABLET BY MOUTH EVERY DAY TAKE ONE TABLET BY MOUTH EVERY DAY SOLD: 09/24/2021 [facility] dapagliflozin 5 MG Oral Tablet [Farxiga] Farxiga 06/20/2021 12:00: 00 AM EDT ORAL active [facility] ([facility] Trazodone Hydrochloride 50 MG Oral Tablet Trazodone HCL 06/20/2021 12:00:00 AM EDT ORAL active [facility] 100 mg 06/19/2021 12:00:00 AM EDT tablet 90 TAKE ONE TABLET BY MOUTH EVERY DAY TAKE ONE TABLET BY MOUTH EVERY DAY SOLD: 06/21/2021 [facility] 100 mg 06/19/2021 12:00:00 AM EDT tablet 90 TAKE ONE TABLET BY MOUTH EVERY DAY TAKE ONE TABLET BY MOUTH EVERY DAY SOLD: 09/20/2021 [facility] sildenafil 100 MG Oral Tablet Sildenafil Citrate 100 M G Sildenafil Citrate 100 MG 06/14/2021 12:00:00 AM EDT 1.0 {tablet_as_needed} active Sildenafil Citrate 100 MG eCW1 ([facility]) 24 HR Oxybutynin chloride 10 MG Extended Release Oral Tablet Oxybutynin Chloride ER 10 MG Oxybutynin Chloride ER 10 MG 06/14/2021 12:00:00 AM EDT 1.0 {tablet} active Oxybutynin Chloride ER 1 0 MG eCW1 ([facility]) sildenafil 100 MG Oral Tablet Sildenafil Citrate 100 M G Sildenafil Citrate 100 MG 06/14/2021 12:00:00 AM EDT 1.0 {tablet_as_needed} active Sildenafil Citrate 100 MG eCW1 ([facility]) 100 mg 06/14/2021 12:00:00 AM EDT tablet 5 TAKE ONE TABLET BY MOUTH ONCE DAILY NEEDED TAKE ONE TABLET BY MOUTH ONCE DAILY NEEDED SOLD: 06/14/20 [facility] 10 mg 06/14/2021 12:00:00 AM EDT tablet extended release 24hr 30 TAKE ONE TABLET BY MOUTH EVERY DAY TAKE ONE TABLET BY MOUTH EVERY DAY SOLD: 06/16/2021 [facility] 24 HR Oxybutynin chloride 10 MG Extended Release Oral Tablet Oxybutynin Chloride ER 10 MG Oxybutynin Chloride ER 10 MG 06/14/2021 12:00:00 AM EDT 1.0 {tablet} active Oxybutynin Chloride ER 1 0 MG eCW1 ([facility]) 50 mg 06/04/2021 12:00:00 AM EDT tablet 30 TAKE ONE TABLET BY MOUTH EVERY DAY AT BEDTIME MAXIMUM DAILY DOSE = 1 TAKE ONE TABLET BY MOUTH EVERY DAY AT BEDTIME MAXIMUM DAILY DOSE = 1 SOLD: 06/06/2021 [facility] Trazodone Hydrochloride 100 MG Oral Tablet TRAZODONE HCL 05/16/2021 12:00:00 AM EDT tablet 90 TAKE 1 TO 1 AND 1/2 TABLETS BY MOUTH AT BEDTIME NEEDED FOR INSOMNIA TAKE 1 TO 1 AND 1/2 TABLETS BY MOUTH AT BEDTIME NEE DED FOR INSOMNIA SOLD: 05/17/2021 [facility] Trazodone Hydrochloride 100 MG Oral Tablet TRAZODONE HCL 05/16/2021 12:00:00 AM EDT tablet 90 TAKE 1 TO 1 AND 1/2 TABLETS BY MOUTH AT BEDTIME NEEDED FOR INSOMNIA TAKE 1 TO 1 AND 1/2 TABLETS BY MOUTH AT BEDTIME NEE DED FOR INSOMNIA SOLD: 08/24/2021 [facility] Amoxicillin 875 MG / Clavulanate 125 MG Oral Tablet Am oxicillin/Clavulanate Potassium 05/15/2021 12:00:00 AM EDT ORAL completed [facility] ([facility] Trazodone Hydrochloride 100 MG Oral Tablet Trazodone HCL 05/15/2021 12:00:00 AM EDT ORAL active [facility] ([facility] Amoxicillin 875 MG / Clavulanate 125 MG Oral Tablet 87 5-125 mg AMOXICILLIN/POTASSIUM CLAV 05/15/2021 12:00:00 AM EDT tablet 20 TAKE ONE TABLET BY MOUTH TWICE A DAY FOR 10 DAYS TAKE ONE TABLET BY MOUTH TWICE A DAY FOR 10 DAYS SOLD: 05/15/2021 [facility] 50 mg 04/30/2021 12:00:00 AM EDT tablet 30 TAKE ONE TABLET BY MOUTH EVERY 6 HOURS NEEDED FOR PAIN, MAXIMUM DAILY DOSE = 4 TABLETS TAKE ONE TABLET BY MOUTH EVERY 6 HOURS NEEDED FOR PAIN, MAXIMUM DAILY DOSE = 4 TABLETS SOLD: 05/01/2021 [facility] pantoprazole 40 MG Delayed Release Oral Tablet PANTOPRAZOLE SODIUM 04/16/2021 12:00:00 AM EDT tablet,delayed release (DR/EC) 180 T SUSAN ONE TABLET BY MOUTH TWICE A DAY TAKE ONE TABLET BY MOUTH TWICE A DAY SOLD: 07/23/2021 [facility] 50 mg 04/16/2021 12:00:00 AM EDT tablet 30 TAKE ONE TABLET BY MOUTH EVERY 6 HOURS NEEDED FOR PAIN, MAXIMUM DAILY DOSE = 4 TABLETS TAKE ONE TABLET BY MOUTH EVERY 6 HOURS NEEDED FOR PAIN, MAXIMUM DAILY DOSE = 4 TABLETS SOLD: 04/21/2021 [facility] pantoprazole 40 MG Delayed Release Oral Tablet PANTOPRAZOLE SODIUM 04/16/2021 12:00:00 AM EDT tablet,delayed release (DR/EC) 180 T SUSAN ONE TABLET BY MOUTH TWICE A DAY TAKE ONE TABLET BY MOUTH TWICE A DAY SOLD: 04/21/2021 [facility] Acetaminophen 325 MG / Hydrocodone Bitartrate 5 MG Ora l Tablet 5-325 mg HYDROCODONE/ACETAMINOPHEN 04/09/2021 12:00:00 AM EDT tablet 40 TAKE 1 TO 2 TABLETS BY MOUTH EVERY 4 TO 6 HOURS NEEDED FOR PAIN MAXIMUM DAILY DOSE = 6 TABLETS TAKE 1 TO 2 TABLETS BY MOUTH EVERY 4 TO 6 HOURS NEEDED FOR PAIN MAXIMUM DAILY DOSE = 6 TABLETS SOLD: 04/09/2021 [facility] Acetaminophen 325 MG / Hydrocodone Bitartrate 5 MG Ora l Tablet 5-325 mg HYDROCODONE/ACETAMINOPHEN 04/02/2021 12:00:00 AM EDT tablet 40 TAKE ONE TO TWO TABLETS BY MOUTH EVERY 4 TO 6 HOURS NEEDED FOR PAIN, MAXIMUM DAILY DOSE = 6 TABLETS TAKE ONE TO TWO TABLETS BY MOUTH EVERY 4 TO 6 HOURS NEEDED FOR PAIN, MAXIMUM DAILY DOSE = 6 TABLETS SOLD: 04/02/2021 [facility] Acetaminophen 325 MG / Hydrocodone Bitartrate 5 MG Ora l Tablet 5-325 mg HYDROCODONE/ACETAMINOPHEN 03/26/2021 12:00:00 AM EDT tablet 42 TAKE 1 TO 2 TABLETS BY MOUTH EVERY 6 HOURS NEEDED PAIN, MAXIMUM DAILY DOSE = 6 TABLETS TAKE 1 TO 2 TABLETS BY MOUTH EVERY 6 HOURS NEEDED PAIN, MAXIMUM DAILY DOSE = 6 TABLETS SOLD: 03/26/2021 [facility] 5-325 mg 03/14/2021 12:00:00 AM EDT tablet 40 TAKE ONE TABLET BY MOUTH EVERY 8 HOURS NEEDED FOR PAIN MAXIMUM DAILY DOSE = 3 TAKE ONE TABLET BY MOUTH EVERY 8 HOURS NEEDED FOR PAIN MAXIMUM DAILY DOSE = 3 SOLD: 03/15/2021 [facility] pantoprazole 40 MG Delayed Release Oral Tablet PANTOPRAZOLE SODIUM 03/05/2021 12:00:00 AM EDT tablet,delayed release (DR/EC) 90 T SUSAN ONE TABLET BY MOUTH EVERY DAY TAKE ONE TABLET BY MOUTH EVERY DAY SOLD: 03/08/2021 [facility] 50 mg 02/28/2021 12:00:00 AM EDT capsule 30 TAKE ONE CAPSULE BY MOUTH EVERY 8 HOURS NEEDED FOR PAIN MAXIMUM DAILY DOSE = 3 TABLETS TAKE ONE CAPSULE BY MOUTH EVERY 8 HOURS NEEDED FOR PAIN MAXIMUM DAILY DOSE = 3 TABLETS SOLD: 02/28/2021 [facility] 5-325 mg 02/28/2021 12:00:00 AM EDT tablet 60 TAKE 1 TO 2 TABLETS BY MOUTH EVERY 4 TO 6 HOURS NEEDED FOR PAIN MAXIMUM DAILY DOSE = 6 TABLETS TAKE 1 TO 2 TABLETS BY MOUTH EVERY 4 TO 6 HOURS NEEDED FOR PAIN MAXIMUM DAILY DOSE = 6 TABLETS SOLD: 02/28/2021 [facility] Bisacodyl 10 MG Rectal Suppository bisacodyl (DULCOLAX ) suppository 10 mg bisacodyl (DULCOLAX) suppository 10 mg 02/24/2021 06:00:00 AM EDT 10 mg Rectal active 10 mg, Rectal, Every 24 hours (relative), First dose on Thu02/24/21 at 0600, Post-op
Hold for BM
[facility] Medication administered onsite Magnesium Hydroxide 80 MG/ML Oral Suspen alejandro magnesium hydroxide (MILK OF MAGNESIA) 400 MG/5ML suspension 30 mL magnesium hydroxide (MILK OF MAGNESIA) 4 00 MG/5ML suspension 30 mL 02/22/2021 09:00:00 PM EDT 30 mL Oral active 30 mL, Oral, Nightly, First dose on Thu02/22/21 at 2100, Post-op [facility] Medication administered onsite 0.3 ML Enoxaparin sodium 100 MG/ML Prefi lled Syringe enoxaparin (LOVENOX) syringe 30 mg enoxaparin (LOVENOX) syringe 30 mg 02/22/2021 09:00:00 AM EDT 30 mg Subcutaneous active 30 mg, Subcutaneous, Every 12 hours (scheduled), First dose on Thu02/22/21 at 0900, Post-op
If platelet count is less than 80,000 or hematocrit is less than 21, or if there is a 5 point decrease in hematocrit, do not give the dose and call physician/designee.
[facility] Medication administered onsite Amlodipine 5 MG Oral Tablet amLODIPine (NORVASC) table t 5 mg amLODIPine (NORVASC) tablet 5 mg 02/22/2021 09:00:00 AM EDT 5 mg Oral active 5 mg, Oral, Daily, First dose on Thu02/22/21 at 0900, Post-op [facility] Medication administered onsite pantoprazole 40 MG Delayed Release Oral Tablet pantoprazole (PROTONIX) EC tablet 40 mg pantoprazole (PROTONIX) EC tablet 40 mg 02/22/2021 09:00:00 AM E DT 40 mg Oral active Gastroesophageal Reflux Diseas e 40 mg, Oral, Daily, Indications: Gastroesophageal Reflux Disease, First dose on Thu02/22/21 at 0900, Post-op [facility] Gastroesophageal Reflux Disease Medication administered onsite Acetaminophen 325 MG / Oxycodone Hydrochloride 5 MG Or al Tablet [Percocet] Percocet 02/22/2021 12:00:00 AM EDT ORAL completed [facility] ([facility] apixaban 2.5 MG Oral Tablet apixaban (ELIQUIS) 2.5 MG TABS tablet apixaban (ELIQUIS) 2.5 MG TABS tablet 02/22/2021 12:00:00 AM EDT 2.5 mg Oral active Take 1 tablet (2.5 m g total) by mouth 2 (two) times a day for 7 days May resume (home dose) Eliquis 5mg BID starting on Starting on 03/01/2021. [facility] Acetaminophen 325 MG / Oxycodone Hydroch loride 5 MG Oral Tablet oxyCODONE- acetaminophen (PERCOCET) 5-325 MG per tablet oxyCODONE-acetaminophen (PERCOCET) 5-325 MG per tablet 02/22/2021 12:00:00 AM EDT Oral active Take 0.5- 1 tablets by mouth every 4 (four) hours as needed for pain Max Daily Amount: 6 tablets [facility] 2.5 mg 02/22/2021 12:00:00 AM EDT tablet 14 TAKE ONE TABLET BY MOUTH TWICE A DAY FOR 7 DAYS . MAY RESUME (HOME DOSE) ELIQUIS 5MG TWO TIMES A DAY STARTING ON 03/01/21 TAKE ONE TABLET BY MOUTH TWICE A DAY FOR 7 DAYS . MAY RESUME (HOME DOSE) ELIQUIS 5MG TWO TIMES A DAY STARTING ON 03/01/21 SOLD: 02/22/2021 [facility] 5-325 mg 02/22/2021 12:00:00 AM EDT tablet 40 TAKE ONE HALF TO ONE TABLET BY MOUTH EVERY 4 HOURS NEEDED FOR PAIN MAXIMUM DAILY DOSE = 6 TAKE ONE HALF TO ONE TABLET BY MOUTH EVERY 4 HOURS NEEDED FOR PAIN MAXIMUM DAILY DOSE = 6 SOLD: 02/22/2021 [facility] Trazodone Hydrochloride 50 MG Oral Tablet traZODone (D ESYREL) tablet 50 mg traZODone (DESYREL) tablet 50 mg 02/21/2021 09:00:00 PM EDT 50 mg Oral active 50 mg, Oral, Nightly, First dose on Thu02/21/21 at 2100, Post-op [facility] Medication administered onsite Docusate Sodium 50 MG / sennosides, [facility] 8.6 MG Oral Tablet senna-docusate (PERICOLACE) 8.6-50 MG 2 tablet senna-docusate (PERICOLACE) 8.6-50 MG 2 tablet 02/21/2021 09:00:00 PM EDT 2 {tbl} Oral active 2 tablet, Oral, Nightly, First dose on Thu02/21/21 at 2100, Post-op [facility] Medication administered onsite Insulin Glargine 100 UNT/ML Injectable S olution [Lantus] insulin glargine (LANTUS) injection 8 Units insulin glargine (LANTUS) injection 8 Units 02/21/2021 09:00:00 PM EDT 8 U Subcutaneous active 8 Units, Subcutaneous, Nightly (Lantus), First dose on Thu02/21/21 at 2100, Post- op
Basal Insulin (Lantus) Adjustments based on AM Blood Glucose Blood Glucose&nbs p; Adjustment Less than 70 mg/dl Nursing to initiate hypoglycemia protocol 70 to 100 mg/dl &nb sp; Pharmacy to decrease total daily dose by 20% 101 to 200 mg/dl &nb sp; No Change
[facility] Medication administered onsite carvedilol 6.25 MG Oral Tablet carvedilol (COREG) tabl et 12.5 mg carvedilol (COREG) tablet 12.5 mg 02/21/2021 09:00:00 PM EDT 12.5 mg Oral active 12.5 mg, Oral, 2 times daily, First dose on Thu02/21/21 at 2100, Post-op [facility] Medication administered onsite Oxycodone Hydrochloride 5 MG Oral Tablet oxyCODONE (ROXICODONE) immediate release tablet 5 mg oxyCODONE (ROXICODONE) immediate release tablet 5 mg 02/21/2021 08:00:00 PM EDT 5 mg Oral completed 5 mg, Oral, Once, Thu02/21/21 at 2000, For 1 dose, Post-op
To be given 12 hours post adductor block administration for breakthrough pain control
[facility] Medication administered onsite Acetaminophen 500 MG Oral Tablet acetaminophen (TYLENO L) tablet 1,000 mg acetaminophen (TYLENOL) tablet 1,000 mg 02/21/2021 04:00:00 PM EDT 1000 mg Oral active 1,000 mg, Oral , Every 6 hours (scheduled), First dose on Thu02/21/21 at 1600, Post-op [facility] Medication administered onsite Insulin Lispro 100 UNT/ML Injectable Ana ution insulin lispro (HumaLOG) injection 1-6 Units insulin lispro (HumaLOG) injection 1-6 Units 03:00:00 PM EDT Subcutaneous active 1-6 Units, Subcutaneous, MEALSS, First dose on Rosalinda 02/21/21 at 1500, Post-op
Frail 3 units Nutritional and Correction Insulin Scale Blood Glucose (mg/dl) <70 start hypoglycemia protocol Glucose &nbsp ; Eats >=50% Eats &l t;50% Eats Nothing (mg/dl) of meal of meal or NPO &nb sp; 70- 120 2 units 1 units 0 units 121-170 & nbsp; 3 units 2 units 0 units 171-220 &nbsp ; 4 units 2 units 1 units 221-270 &am p;nbsp; 4 units 3 units 1 units 271-320 &n bsp; 5 units 3 units 2 units 321- 370 5 units 4 units 2 units 371- 420 6 units 4 units 3 units >420 call MD 6 units 5 units 3 units Test glucose within 30 minutes of insulin administration. Administer insulin within 15 minutes (before or after) of t he patient starting to eat. For patients that are NPO, use the NPO (correction) scale to cover POC glucose at 08:00, 12:00, 17:00.
[facility] Medication administered onsite gabapentin 600 MG Oral Tablet gabapentin (NEURONTIN) t ablet 600 mg gabapentin (NEURONTIN) tablet 600 mg 02/21/2021 03:00:00 PM EDT 600 mg Oral active 600 mg, Oral, 3 times daily, First dose on Rosalinda 02/21/21 at 1500, Post-op [facility] Medication administered onsite cefazolin (ANCEF) injection 2 g 02/21/2021 02:00:00 PM EDT 2 g Intravenous completed Perioperative Pharmacoprophylaxis 2 g, Intravenous, Administer over 6 Minutes, Every 8 hours (relative), First dose on Rosalinda 02/21/21 at 1400, For 3 doses, Post-op
Start 4 hours after pre-op dose, then every 8 hours x 2 doses. RN may administer IV push or infuse this medication through syringe adapter set ref [id number]. Flush line after use
[facility] Perioperative Pharmacoprophylaxis Medication administered onsite normal saline flush 0.9 % injection 3 mL [id number] 02/21/2021 02:00:00 PM EDT 3 mL Intravenous active 3 mL , Intravenous, Every 8 hours (scheduled), First dose on Rosalinda 02/21/21 at 1400, Post-op
flush per protocol, D/C Main IV fluid if appropriate
[facility] Medication administered onsite PARoxetine (PAXIL) tablet 10 mg [id number] 02/21/2021 01:00:00 PM E DT 10 mg Oral active 10 mg, Oral, E very morning, First dose on Rosalinda 02/21/21 at 1300, Post-op
For administration and preparation considerations, refer to Hazardous Drugs in the Workplace Policy on Intranet.
[facility] Medication administered onsite Tamsulosin hydrochloride 0.4 MG Oral Cap nader tamsulosin (FLOMAX) 24 hr capsule 0.4 mg tamsulosin (FLOMAX) 24 hr capsule 0.4 mg 02/21/2021 01:00:00 PM EDT 0.4 mg Oral active 0.4 mg, Or al, Daily, First dose on Thu02/21/21 at 1300, Post-op [facility] Medication administered onsite sodium chloride 0.9% (NS) infusion [id number] 02/21/2021 01:00:00 P M EDT Intravenous active at 100 mL/hr, Intravenous, Continuous, Starting Thu02/21/21 at 1300, Post-op [facility] Medication administered onsite atorvastatin 20 MG Oral Tablet atorvastatin (LIPITOR) tablet 20 mg atorvastatin (LIPITOR) tablet 20 mg 02/21/2021 01:00:00 PM EDT 20 mg Oral active 20 mg, Oral, Daily, First dose on Thu02/21/21 at 1300, Post-op [facility] Medication administered onsite Digoxin 0.125 MG Oral Tablet digoxin (LANOXIN) tablet 125 mcg digoxin (LANOXIN) tablet 125 mcg 02/21/2021 01:00:00 PM EDT 125 ug Oral act chandler 125 mcg, Oral, Daily, First dose on Thu02/21/21 at 1300, Post-op [facility] Medication administered onsite 60 ACTUAT mometasone furoate 0.2 MG/ACTU AT Dry Powder Inhaler mometasone furoate (ASMANEX) DPI 220 mcg/inh inhaler mometasone furoate (ASMANEX) DPI 220 mcg /inh inhaler 02/21/2021 01:00:00 PM EDT 1 {puff} Inhalation acti ve 1 puff, Inhalation, Daily, First dose on Thu02/21/21 at 1300, Post-op [facility] Medication administered onsite Lisinopril 10 MG Oral Tablet lisinopril (PRINIVIL,ZEST RIL) tablet 10 mg lisinopril (PRINIVIL,ZESTRIL) tablet 10 mg 02/21/2021 01:00:00 PM EDT 10 mg Oral active 10 mg, Oral, D aily, First dose on Thu02/21/21 at 1300, Post-op [facility] Medication administered onsite Mineral Oil 1000 MG/ML Enema mineral oil enema 1 enema mineral oil enema 1 enema 02/21/2021 12:42:05 PM EDT 1 {enema} Rectal active 1 enema, Rectal, Daily PRN, constipation, Starting Rosalinda 02/21/21 at 1242, Post-op [facility] Medication administered onsite ondansetron (ZOFRAN) injection 4 mg [id number] 02/21/2021 12:42:0 5 PM EDT 4 mg Intravenous active 4 mg, In travenous, Every 4 hours PRN, nausea, vomiting, for N/V not controlled by Reglan, Starting Rosalinda 02/21/21 at 1242, Post-op [facility] Medication administered onsite Ondansetron 4 MG Disintegrating Oral Tab let ondansetron (ZOFRAN-ODT) disintegrating tablet 4 mg ondansetron (ZOFRAN-ODT) disintegrating tablet 4 mg 02/21/2021 12:42:05 PM EDT 4 mg Oral active 4 mg, Oral, Every 4 hours PRN, nausea, vomiting, for N/V not relieved by metoclopramide, Starting Rosalinda 02/21/21 at 1242, Post-op [facility] Medication administered onsite Oxycodone Hydrochloride 5 MG Oral Tablet oxyCODONE (ROXICODONE) immediate release tablet 5 mg oxyCODONE (ROXICODONE) immediate release tablet 5 mg 02/21/2021 12:42:05 PM EDT 5 mg Oral active 5 mg, Oral, 2 times daily PRN, for pre-emptive pain control prior to PT, Starting Rosalinda 02/21/21 at 1242, For 7 days, Post-op
Administer 1 hour prior to PT
[facility] Medication administered onsite 2 ML Metoclopramide 5 MG/ML Prefilled Sy ringe metoclopramide (REGLAN) injection 10 mg metoclopramide (REGLAN) injection 10 mg 02/21/2021 12:42:05 PM E DT 10 mg Intravenous active 10 mg, I ntravenous, Every 6 hours PRN, for N/V if unable to take PO metoclopramide, Starting Rosalinda 02/21/21 at 1242, Post-op [facility] Medication administered onsite Metoclopramide 10 MG Oral Tablet metoclopramide (ATIF N) tablet 10 mg metoclopramide (REGLAN) tablet 10 mg 02/21/2021 12:42:05 PM EDT 10 mg Oral active 10 mg, Oral, Stephanie ry 6 hours PRN, nausea, Starting Rosalinda 02/21/21 at 1242, Post-op [facility] Medication administered onsite Oxycodone Hydrochloride 5 MG Oral Tablet oxyCODONE (ROXICODONE) immediate release tablet 5 mg oxyCODONE (ROXICODONE) immediate release tablet 5 mg 02/21/2021 12:42:05 PM EDT 5 mg Oral active 5 mg, Oral, Every 4 hours PRN, severe pain (7-10), Starting Rosalinda 02/21/21 at 1242, For 7 days, Post-op [facility] Medication administered onsite oxyCODONE (ROXICODONE) immediate release split tablet 2.5 mg [id number] 02/21/2021 12:42:05 PM EDT 2.5 mg Oral active 2.5 mg, Oral, Every 4 hours PRN, moderate pain (4-6), Starting Rosalinda 02/21/21 at 1242, For 7 days, Post-op [facility] Medication administered onsite Calcium Carbonate 500 MG Chewable Tablet calcium carbonate (TUMS) chewable tablet 500-1,000 mg calcium carbonate (TUMS) chewable tablet 500-1,000 mg 02/21/2021 12:42:04 PM EDT Oral active 500-1,000 mg, Oral, Every 4 hours PRN, indigestion, heartburn, indigestion, Starting Rosalinda 02/21/21 at 1242, Post-op [facility] Medication administered onsite fentaNYL Citrate (PF) (SUBLIMAZE) injection 25 mcg [id number] 02/21/2021 12:42:04 PM EDT 25 ug Intravenous active 25 mcg, Intravenous, Every 3 hours PRN, for severe breakthrough pain (7-10) if oral opioid ineffective, Starting Rosalinda 02/21/21 at 1242, For 7 days, Post-op [facility] Medication administered onsite Aluminum Hydroxide 40 MG/ML / Magnesium Hydroxide 40 MG/ML / Simethicone 4 MG/ML Oral Suspension alum & mag hydroxide-simeth 200-200-20 MG/5ML suspension 30 mL alum & mag hydroxide-simeth 200-200-20 MG/5ML suspension 30 mL 02/21/2021 12:42:04 PM EDT 30 mL Oral active 30 mL, Oral, Every 4 hours PRN, indigestion, unrelieved by Tums, Starting Rosalinda 02/21/21 at 1242, Post-op [facility] Medication administered onsite Albuterol 0.83 MG/ML Inhalant Solution a lbuterol (PROVENTIL) nebulizer solution 2.5 mg albuterol (PROVENTIL) nebulizer solution 2.5 mg 2020 12:42:04 PM EDT 2.5 mg active 2.5 mg, Nebulization, RT every 6 hours as needed, shortness of breath, Starting Rosalinda 02/21/21 at 1242, Post-op [facility] Medication administered onsite Tranexamic Acid 650 MG Oral Tablet tranexamic Acid tab let 1,950 mg tranexamic Acid tablet 1,950 mg 02/21/2021 08:00:00 AM EDT 1950 mg Oral completed 1,950 mg, Oral, manager call to [facility].R[facility] 02/21/21 at 0800, F or 1 dose, Pre-op [facility] Medication administered onsite Acetaminophen 500 MG Oral Tablet acetaminophen (TYLENO L) tablet 1,000 mg acetaminophen (TYLENOL) tablet 1,000 mg 02/21/2021 08:00:00 AM EDT 1000 mg Oral completed 1,000 mg, Oral , manager call, Rosalinda 02/21/21 at 0800, For 1 dose, Pre-op
To be administered just prior to to transport to operating room
[facility] Medication administered onsite ondansetron (ZOFRAN) injection 4 mg [id number] 02/21/2021 08:00:0 0 AM EDT 4 mg Intravenous completed 4 mg, In travenous, manager call, Rosalinda 02/21/21 at 0800, For 1 dose, Pre-op
To be administered just prior to to transport to operating room
[facility] Medication administered onsite 2 ML Metoclopramide 5 MG/ML Prefilled Sy ringe metoclopramide (REGLAN) injection 10 mg metoclopramide (REGLAN) injection 10 mg 02/21/2021 08:00:00 AM E DT 10 mg Intravenous completed 10 mg, I ntravenous, manager call, Rosalinda 02/21/21 at 0800, For 1 dose, Pre-op
To be administered just prior to to transport to operating room
[facility] Medication administered onsite chlorhexidine gluconate 1.2 MG/ML Mouthw shruti chlorhexidine (PERIDEX) 0.12 % oral solution 15 mL chlorhexidine (PERIDEX) 0.12 % oral solution 15 mL 11/2020 08:00:00 AM EDT 15 mL Mouth/Throat completed 15 mL, Mouth/Throat, manager call, Rosalinda 02/21/21 at 0800, For 1 dose, Pre-op
Swish for 30 seconds and spit in pre-induction unit
[facility] Medication administered onsite Magnesium Chloride 0.55208 MEQ/ML / Pota ssium Chloride 0.0497 MEQ/ML / Sodium Acetate 0.0163 MEQ/ML / Sodium Chloride 0.0899 MEQ/ML / Sodium gluconate 5.02 MG/ML Injectable Solution [Normosol-R] electrolyte-R (NORMOSOL-R/PLASMALYTE-R) solution electrolyte-R (NORMOSOL-R/PLASMALYTE-R) solution 02/21 08:00:00 AM EDT Intravenous aborted at 1 00 mL/hr, Intravenous, Continuous, Starting Rosalinda 02/21/21 at 0800, Pre-op [facility] Medication administered onsite 1,250 mcg (50,000 unit) 02/11/2021 12:00:00 AM EDT capsule 12 TAKE ONE CAPSULE BY MOUTH ONCE WEEKLY TAKE ONE CAPSULE BY MOUTH ONCE WEEKLY SOLD: 02/13/2021 [facility] atorvastatin 20 MG Oral Tablet ATORVASTATIN CALCIUM 02/11/2021 1 2:00:00 AM EDT tablet 90 TAKE ONE TABLET BY MOUTH EVERY D AY TAKE ONE TABLET BY MOUTH EVERY DAY SOLD: 02/13/2021 [facility] 1,250 mcg (50,000 unit) 02/11/2021 12:00:00 AM EDT capsule 12 TAKE ONE CAPSULE BY MOUTH ONCE WEEKLY TAKE ONE CAPSULE BY MOUTH ONCE WEEKLY SOLD: 05/22/2021 [facility] 1,250 mcg (50,000 unit) 02/11/2021 12:00:00 AM EDT capsule 12 TAKE ONE CAPSULE BY MOUTH ONCE WEEKLY TAKE ONE CAPSULE BY MOUTH ONCE WEEKLY SOLD: 08/05/2021 [facility] atorvastatin 20 MG Oral Tablet ATORVASTATIN CALCIUM 02/11/2021 1 2:00:00 AM EDT tablet 90 TAKE ONE TABLET BY MOUTH EVERY D AY TAKE ONE TABLET BY MOUTH EVERY DAY SOLD: 08/21/2021 [facility] atorvastatin 20 MG Oral Tablet ATORVASTATIN CALCIUM 02/11/2021 1 2:00:00 AM EDT tablet 90 TAKE ONE TABLET BY MOUTH EVERY D AY TAKE ONE TABLET BY MOUTH EVERY DAY SOLD: 05/22/2021 [facility] 5 mg 01/28/2021 12:00:00 AM EST tablet 180 TAKE ONE TABLET BY MOUTH TWICE A DAY TAKE ONE TABLET BY MOUTH TWICE A DAY SOLD: 01/28/2021 [facility] 5 mg 01/28/2021 12:00:00 AM EST tablet 180 TAKE ONE TABLET BY MOUTH TWICE A DAY TAKE ONE TABLET BY MOUTH TWICE A DAY SOLD: 08/12/2021 [facility] 5 mg 01/28/2021 12:00:00 AM EST tablet 180 TAKE ONE TABLET BY MOUTH TWICE A DAY TAKE ONE TABLET BY MOUTH TWICE A DAY SOLD: 05/13/2021 [facility] Tamsulosin hydrochloride 0.4 MG Oral Capsule Tamsulosin HCL 01/09/2021 12:00:00 AM EST ORAL active [facility] ([facility]) gabapentin 600 MG Oral Tablet Gabapentin 01/09/2021 12:00:00 AM EST ORAL active [facility] ([facility]) gabapentin 600 MG Oral Tablet Gabapentin 01/09/2021 12:00:00 AM EST ORAL active [facility] ([facility]) Tamsulosin hydrochloride 0.4 MG Oral Capsule Tamsulosin HCL 01/09/2021 12:00:00 AM EST ORAL active [facility] ([facility]) chlorhexidine gluconate 40 MG/ML Medicated Liquid Soap [Hibi clens] Hibiclens 01/08/2021 12:00:00 AM EST active [facility] ([facility]) Mupirocin 0.02 MG/MG Topical Ointment Mupirocin 01/08/2021 12:00:00 AM EST active [facility] ([facility]) 2 % 01/08/2021 12:00:00 AM EST ointment 22 APPLY A PEA SIZED AMOUNT TO THE NASAL PASSAGES THREE TIMES A DAY FOR 5 DAYS PRIOR TO SURGERY APPLY A PEA SIZED AMOUNT TO THE NASAL PASSAGES THREE TIMES A DAY FOR 5 DAYS PRIOR TO SURGERY SOLD: 01/08/2021 [facility] 1 % 01/04/2021 12:00:00 AM EST drops,suspension 2 DAY OF SURGERY REMOVE PATCH START 1 DROP TWO TIMES A DAY IN THE RIGHT EYE DAY OF SURGERY REMOVE PATCH START 1 DROP TWO TIMES A DAY IN THE RIGHT EYE SOLD: 01/07/2021 [facility] moxifloxacin 5 MG/ML Ophthalmic Solution 0.5 % MOXIFLOXACIN HCL 01/04/2021 12:00:00 AM EST drops 5 THREE DAYS PRIOR TO SURGERY START 1 DROP IN THE RIGHT EYE FOUR TIMES A DAY THREE DAYS PRIOR TO SURGERY START 1 DROP IN THE RIGHT EYE FOUR TIMES A DAY SOLD: 01/07/2021 [facility] 0.075 % 01/04/2021 12:00:00 AM EST drops 5 THREE DAYS PRIOR TO SURGERY START 1 DROP IN THE RIGHT EYE TWO TIMES A DAY THREE DAYS PRIOR TO SURGERY START 1 DROP IN THE RIGHT EYE TWO TIMES A DAY SOLD: 01/07/2021 [facility] moxifloxacin 5 MG/ML Ophthalmic Solution Moxifloxacin HCl 0.5% Ophthalmic Solution Moxifloxacin HCl 0.5% Ophthalmic Solution 01/03/2021 12:00:00 AM EST active moxifloxacin 5 MG/ML Oph thalmic Solution MARY KAY (Abiodun Moore MD [facility]) Inveltys 1% Ophthalmic Suspension Inveltys 1% Ophthalmic Rossy pension 01/03/2021 12:00:00 AM EST active loteprednol etabonate 10 MG/ML Ophthalmic Suspension [Inveltys] MARY KAY (Abiodun Moore MD [facility]) BromSite 0.075% Ophthalmic Solution BromSite 0.075% Ophthalm ic Solution 01/03/2021 12:00:00 AM EST active bromfenac 0.75 MG/ML Ophthalmic Solution [Bromsite] MEADOW (Abiodun Moore MD [facility]) 0.4 mg 11/15/2020 12:00:00 AM EST capsule 90 TAKE ONE CAPSULE BY MOUTH EVERY DAY FOR PROSTATE TAKE ONE CAPSULE BY MOUTH EVERY DAY FOR PROSTATE SOLD: 11/19/2020 [facility] 0.4 mg 11/15/2020 12:00:00 AM EST capsule 90 TAKE ONE CAPSULE BY MOUTH EVERY DAY FOR PROSTATE TAKE ONE CAPSULE BY MOUTH EVERY DAY FOR PROSTATE SOLD: 04/09/2021 [facility] Tamsulosin hydrochloride 0.4 MG Oral Capsule Tamsulosin HCL 11/14/2020 12:00:00 AM EST ORAL active [facility] ([facility] 40 mcg/actuation 11/03/2020 12:00:00 AM EST HFA aerosol smooth th activated 10 INHALE TWO PUFFS BY MOUTH TWICE A DAY INHALE TWO PUFFS BY MOUTH TWICE A DAY SOLD: 11/04/2020 [facility] 40 mcg/actuation 11/03/2020 12:00:00 AM EST HFA aerosol smooth th activated 10 INHALE TWO PUFFS BY MOUTH TWICE A DAY INHALE TWO PUFFS BY MOUTH TWICE A DAY SOLD: 12/24/2020 [facility] 40 mcg/actuation 11/03/2020 12:00:00 AM EST HFA aerosol smooth th activated 10 INHALE TWO PUFFS BY MOUTH TWICE A DAY INHALE TWO PUFFS BY MOUTH TWICE A DAY SOLD: 05/01/2021 [facility] 40 mcg/actuation 11/03/2020 12:00:00 AM EST HFA aerosol smooth th activated 10 INHALE TWO PUFFS BY MOUTH TWICE A DAY INHALE TWO PUFFS BY MOUTH TWICE A DAY SOLD: 06/10/2021 [facility] 50 mg 11/03/2020 12:00:00 AM EST tablet 60 TAKE TWO TABLETS BY MOUTH AT BEDTIME NEEDED FOR INSOMNIA TAKE TWO TABLETS BY MOUTH AT BEDTIME NEEDED FOR INSOMNIA SOLD: 04/15/2021 [facility] 40 mcg/actuation 11/03/2020 12:00:00 AM EST HFA aerosol smooth th activated 10 INHALE TWO PUFFS BY MOUTH TWICE A DAY INHALE TWO PUFFS BY MOUTH TWICE A DAY SOLD: 01/23/2021 [facility] 40 mcg/actuation 11/03/2020 12:00:00 AM EST HFA aerosol smooth th activated 10 INHALE TWO PUFFS BY MOUTH TWICE A DAY INHALE TWO PUFFS BY MOUTH TWICE A DAY SOLD: 08/17/2021 [facility] 50 mg 11/03/2020 12:00:00 AM EST tablet 60 TAKE TWO TABLETS BY MOUTH AT BEDTIME NEEDED FOR INSOMNIA TAKE TWO TABLETS BY MOUTH AT BEDTIME NEEDED FOR INSOMNIA SOLD: 12/06/2020 [facility] 50 mg 11/03/2020 12:00:00 AM EST tablet 60 TAKE TWO TABLETS BY MOUTH AT BEDTIME NEEDED FOR INSOMNIA TAKE TWO TABLETS BY MOUTH AT BEDTIME NEEDED FOR INSOMNIA SOLD: 11/04/2020 [facility] 5 mg 10/15/2020 12:00:00 AM EST tablet 90 TAKE ONE TABLET BY MOUTH EVERY DAY TAKE ONE TABLET BY MOUTH EVERY DAY SOLD: 07/14/2021 [facility] 5 mg 10/15/2020 12:00:00 AM EST tablet 90 TAKE ONE TABLET BY MOUTH EVERY DAY TAKE ONE TABLET BY MOUTH EVERY DAY SOLD: 04/15/2021 [facility] 5 mg 10/15/2020 12:00:00 AM EST tablet 90 TAKE ONE TABLET BY MOUTH EVERY DAY TAKE ONE TABLET BY MOUTH EVERY DAY SOLD: 10/16/2020 [facility] 5 mg 10/15/2020 12:00:00 AM EST tablet 90 TAKE ONE TABLET BY MOUTH EVERY DAY TAKE ONE TABLET BY MOUTH EVERY DAY SOLD: 01/15/2021 [facility] 5 mg 10/09/2020 12:00:00 AM EST tablet 90 TAKE ONE TABLET BY MOUTH EVERY DAY TAKE ONE TABLET BY MOUTH EVERY DAY SOLD: 04/21/2021 [facility] 5 mg 10/09/2020 12:00:00 AM EST tablet 90 TAKE ONE TABLET BY MOUTH EVERY DAY TAKE ONE TABLET BY MOUTH EVERY DAY SOLD: 01/11/2021 [facility] 5 mg 10/09/2020 12:00:00 AM EST tablet 90 TAKE ONE TABLET BY MOUTH EVERY DAY TAKE ONE TABLET BY MOUTH EVERY DAY SOLD: 10/10/2020 [facility] carvedilol 12.5 MG Oral Tablet CARVEDILOL 09/25/2020 12:00:00 AM EST tablet 180 TAKE ONE TABLET BY MOUTH TWICE A DAY TAKE ONE TABLET BY MOUT H TWICE A DAY SOLD: 09/27/2020 [facility] carvedilol 12.5 MG Oral Tablet CARVEDILOL 09/25/2020 12:00:00 AM EST tablet 180 TAKE ONE TABLET BY MOUTH TWICE A DAY TAKE ONE TABLET BY MOUT H TWICE A DAY SOLD: 06/26/2021 [facility] carvedilol 12.5 MG Oral Tablet CARVEDILOL 09/25/2020 12:00:00 AM EST tablet 180 TAKE ONE TABLET BY MOUTH TWICE A DAY TAKE ONE TABLET BY MOUT H TWICE A DAY SOLD: 03/25/2021 [facility] carvedilol 12.5 MG Oral Tablet CARVEDILOL 09/25/2020 12:00:00 AM EST tablet 180 TAKE ONE TABLET BY MOUTH TWICE A DAY TAKE ONE TABLET BY MOUT H TWICE A DAY SOLD: 12/24/2020 [facility] 600 mg 09/18/2020 12:00:00 AM EDT tablet 90 TAKE ONE TABLET BY MOUTH THREE TIMES A DAY TAKE ONE TABLET BY MOUTH THREE TIMES A DAY SOLD: 09/21/2020 [facility] 600 mg 09/18/2020 12:00:00 AM EDT tablet 90 TAKE ONE TABLET BY MOUTH THREE TIMES A DAY TAKE ONE TABLET BY MOUTH THREE TIMES A DAY SOLD: 02/06/2021 [facility] 600 mg 09/18/2020 12:00:00 AM EDT tablet 90 TAKE ONE TABLET BY MOUTH THREE TIMES A DAY TAKE ONE TABLET BY MOUTH THREE TIMES A DAY SOLD: 05/17/2021 [facility] 600 mg 09/18/2020 12:00:00 AM EDT tablet 90 TAKE ONE TABLET BY MOUTH THREE TIMES A DAY TAKE ONE TABLET BY MOUTH THREE TIMES A DAY SOLD: 11/10/2020 [facility] 600 mg 09/18/2020 12:00:00 AM EDT tablet 90 TAKE ONE TABLET BY MOUTH THREE TIMES A DAY TAKE ONE TABLET BY MOUTH THREE TIMES A DAY SOLD: 12/24/2020 [facility] Paroxetine Hydrochloride 10 MG Oral Tablet PAROXETINE HCL 09/17/2020 12:00:00 AM EDT tablet 90 TAKE ONE TABLET BY MOUTH STEPHANIE RY DAY TAKE ONE TABLET BY MOUTH EVERY DAY SOLD: 09/21/2020 [facility] Paroxetine Hydrochloride 10 MG Oral Tablet PAROXETINE HCL 09/17/2020 12:00:00 AM EDT tablet 90 TAKE ONE TABLET BY MOUTH STEPHANIE RY DAY TAKE ONE TABLET BY MOUTH EVERY DAY SOLD: 12/16/2020 [facility] gabapentin 600 MG Oral Tablet Gabapentin 09/17/2020 12:00:00 AM EDT ORAL active [facility] ([facility] ) No Active Medications 09/17/2020 12:00:00 AM EDT completed [facility] ([facility] ) Paroxetine Hydrochloride 10 MG Oral Tablet PAROXETINE HCL 09/17/2020 12:00:00 AM EDT tablet 90 TAKE ONE TABLET BY MOUTH STEPHANIE RY DAY TAKE ONE TABLET BY MOUTH EVERY DAY SOLD: 06/21/2021 [facility] Paroxetine Hydrochloride 10 MG Oral Tablet PAROXETINE HCL 09/17/2020 12:00:00 AM EDT tablet 90 TAKE ONE TABLET BY MOUTH STEPHANIE RY DAY TAKE ONE TABLET BY MOUTH EVERY DAY SOLD: 03/18/2021 [facility] 5 mg 08/01/2020 12:00:00 AM EDT tablet 180 TAKE ONE TABLET BY MOUTH TWICE A DAY TAKE ONE TABLET BY MOUTH TWICE A DAY SOLD: 11/01/2020 [facility] Digoxin 0.125 MG Oral Tablet 125 mcg (0.125 mg) DIGOXIN 07/17/2020 12:00:00 AM EDT tablet 90 TAKE ONE TABLET BY MOUTH STEPHANIE DAY TAKE ONE TABLET BY MOUTH EVERY DAY SOLD: 04/15/2021 [facility] Digoxin 0.125 MG Oral Tablet 125 mcg (0.125 mg) DIGOXIN 07/17/2020 12:00:00 AM EDT tablet 90 TAKE ONE TABLET BY MOUTH STEPHANIE DAY TAKE ONE TABLET BY MOUTH EVERY DAY SOLD: 01/15/2021 [facility] Digoxin 0.125 MG Oral Tablet 125 mcg (0.125 mg) DIGOXIN 07/17/2020 12:00:00 AM EDT tablet 90 TAKE ONE TABLET BY MOUTH STEPHANIE RY DAY TAKE ONE TABLET BY MOUTH EVERY DAY SOLD: 10/16/2020 [facility] 10 mg 07/03/2020 12:00:00 AM EDT tablet 90 TAKE ONE TABLET BY MOUTH EVERY DAY TAKE ONE TABLET BY MOUTH EVERY DAY SOLD: 04/01/2021 [facility] 10 mg 07/03/2020 12:00:00 AM EDT tablet 90 TAKE ONE TABLET BY MOUTH EVERY DAY TAKE ONE TABLET BY MOUTH EVERY DAY SOLD: 10/01/2020 [facility] 10 mg 07/03/2020 12:00:00 AM EDT tablet 90 TAKE ONE TABLET BY MOUTH EVERY DAY TAKE ONE TABLET BY MOUTH EVERY DAY SOLD: 12/31/2020 [facility] 100 mg 06/21/2020 12:00:00 AM EDT tablet 90 TAKE ONE TABLET BY MOUTH EVERY DAY TAKE ONE TABLET BY MOUTH EVERY DAY SOLD: 03/18/2021 [facility] 100 mg 06/21/2020 12:00:00 AM EDT tablet 90 TAKE ONE TABLET BY MOUTH EVERY DAY TAKE ONE TABLET BY MOUTH EVERY DAY SOLD: 09/21/2020 [facility] 100 mg 06/21/2020 12:00:00 AM EDT tablet 90 TAKE ONE TABLET BY MOUTH EVERY DAY TAKE ONE TABLET BY MOUTH EVERY DAY SOLD: 12/16/2020 [facility] pregabalin 100 MG Oral Capsule Pregabalin 06/15/2020 12:00:00 AM EDT ORAL completed [facility] ([facility], ) 45 mcg/actuation 05/01/2020 12:00:00 AM EDT HFA aerosol inha ler 15 INHALE TWO PUFFS BY MOUTH EVERY 4 HOURS NEEDED INHALE TWO PUFFS BY MOUTH EVERY 4 HOURS NEEDED SOLD: 01/23/2021 [facility] 45 mcg/actuation 05/01/2020 12:00:00 AM EDT HFA aerosol inha ler 15 INHALE TWO PUFFS BY MOUTH EVERY 4 HOURS NEEDED INHALE TWO PUFFS BY MOUTH EVERY 4 HOURS NEEDED SOLD: 03/14/2021 [facility] 50 mg 03/21/2020 12:00:00 AM EDT tablet 60 TAKE TWO TABLETS BY MOUTH AT BEDTIME NEEDED FOR INSOMNIA TAKE TWO TABLETS BY MOUTH AT BEDTIME NEEDED FOR INSOMNIA SOLD: 08/27/2020 [facility] 50 mg 03/21/2020 12:00:00 AM EDT tablet 60 TAKE TWO TABLETS BY MOUTH AT BEDTIME NEEDED FOR INSOMNIA TAKE TWO TABLETS BY MOUTH AT BEDTIME NEEDED FOR INSOMNIA SOLD: 09/28/2020 [facility] pantoprazole 40 MG Delayed Release Oral Tablet PANTOPRAZOLE SODIUM 03/07/2020 12:00:00 AM EDT tablet,delayed release (DR/EC) 180 T SUSAN ONE TABLET BY MOUTH TWICE A DAY TAKE ONE TABLET BY MOUTH TWICE A DAY SOLD: 12/03/2020 [facility] pantoprazole 40 MG Delayed Release Oral Tablet PANTOPRAZOLE SODIUM 03/07/2020 12:00:00 AM EDT tablet,delayed release (DR/EC) 180 T SUSAN ONE TABLET BY MOUTH TWICE A DAY TAKE ONE TABLET BY MOUTH TWICE A DAY SOLD: 09/02/2020 [facility] 1,250 mcg (50,000 unit) 02/21/2020 12:00:00 AM EDT capsule 12 TAKE 1 CAPSULE BY MOUTH EVERY WEEK TAKE 1 CAPSULE BY MOUTH EVERY WEEK SOLD: 11/19/2020 [facility] atorvastatin 20 MG Oral Tablet ATORVASTATIN CALCIUM 02/21/2020 1 2:00:00 AM EDT tablet 90 TAKE ONE TABLET BY MOUTH EVERY D AY TAKE ONE TABLET BY MOUTH EVERY DAY SOLD: 08/23/2020 [facility] atorvastatin 20 MG Oral Tablet ATORVASTATIN CALCIUM 02/21/2020 1 2:00:00 AM EDT tablet 90 TAKE ONE TABLET BY MOUTH EVERY D AY TAKE ONE TABLET BY MOUTH EVERY DAY SOLD: 11/19/2020 [facility] 1,250 mcg (50,000 unit) 02/21/2020 12:00:00 AM EDT capsule 12 TAKE 1 CAPSULE BY MOUTH EVERY WEEK TAKE 1 CAPSULE BY MOUTH EVERY WEEK SOLD: 08/27/2020 [facility] 40 mcg/actuation 11/09/2019 12:00:00 AM EST HFA aerosol smooth th activated 10 INHALE 2 PUFFS BY MOUTH TWO TIMES A DAY INHALE 2 PUFFS BY MOUTH TWO TIMES A DAY SOLD: 09/16/2020 [facility] Acetaminophen 500 MG Oral Tablet acetaminophen (TYLENO L) 500 MG tablet acetaminophen (TYLENOL) 500 MG tablet 500 mg Oral aborted Take 500 mg by mouth daily as needed for pain [facility] apixaban 5 MG Oral Tablet Apixaban (ELIQUIS) 5 MG TABS tablet Apixaban (ELIQUIS) 5 MG TABS tablet 5 mg Oral aborted Take 5 mg by mouth 2 (two) times a day [facility] Insurance Providers Payer name Policy type / Coverage type Policy ID Covered constitution party ID Covered constitution party's relationship to kiran Policy Kiran [facility] Information [id number] [place] [id number] [facility] Part B [id number] Family Dependent [id number] [facility] Part B [id number] Family [id number] [id number] Family Dependent [id number] [facility] [id number] Family Dependent [id number] [facility] [id number] Family Dependent [id number] [facility] [id number] Family Dependent [id number] [facility] [id number] 2.840.1.148612.3.227.99.991.342841.0 Family Dependent [id number] [facility] [id number] 2.840.1.536801.3.227.99.991.586263.0 Family Dependent [id number] [facility] Health Maintenance Organization (HMO) [id number] Family Dependent [facility] [id number] 2.840.1.893550.3.227.99.991.739897.0 Family Dependent [id number] [facility] Part [facility] [id number] 2.840.1.038920.3.227.99.991.973056.0 Family Dependent [id number] [facility] Part [facility] [id number] 2.840.1.776549.3.227.99.991.896719.0 Family Dependent [id number] [facility] [id number] [facility] [id number] [id number] [place]2 [id number] [place] Medicare Primary [id number] 2.840.1.844644.3.227.99.991.059814.0 Self [id number] Medicare [place] Medicare Primary [id number] 2.840.1.419949.3.227.99.991.170075.0 Self [id number] [place] Medicare Primary [id number] 2.840.1.362532.3.227.99.991.042086.0 Self [id number] Medicare C [id number] SELF [id number] Y21 [place] Medicare Primary [id number] 2.0.1.007124.3.227.99.991.044916.0 Self [id number] [place] Medicare Primary [id number] 2.840.1.525461.3.227.99.991.048623.0 Self [id number] [place] Medicare Primary [id number] 2.840.1.224432.3.227.99.991.955286.0 Self [id number] [place] Medicare Primary [id number] 2.840.1.979559.3.227.99.991.402382.0 Self [id number] [place] Medicare Primary [id number] 2.840.1.374783.3.227.99.991.124477.0 Self [id number] [place] Medicare Primary [id number] 2.840.1.574914.3.227.99.991.906554.0 Self [id number] MEDICARE [id number] SP [id number] A MEDICARE [id number] xxxxxxxxxxx [id number] [place] Medicare Primary [id number] 2.840.1.137355.3.227.99.991.039123.0 Self [id number] MEDICARE [id number] SP [id number] Y21 MEDICARE [id number] Kelsie [id number] Y21 Medicare [facility] Medicare Primary [id number] 2.0.1.809217.3.227.99.991.177916.0 Self [id number] EXCELLUS BCBS [id number] xxxxxxxxxxxx [id number] EXCELLUS BCBS [id number] Spo YLS [id number] [place] Plan F [id number] SPOUSE [id number] 1 INSURANCE COVID-19 [id number] xxxxx [id number] INSURANCE COVID-19 COVID Kelsie C OVID [facility] Weed Medigap Part B [id number] .[id number] Family Dependent [id number] [place]/[facility] Medicare Primary [id number] 2.0.1.411893.3.227.99.8646.90299.0 Self [id number] Medicare Dme Supplies Medigap Part B [id number] ..[id number]00.0 Self [id number] [facility] Medigap Part B [id number] ..[id number]37.0 Family Dependent [id number] Medicare [facility] Medicare Primary [id number] 2.0.1.861344.3.227.99.2809.61657.0 Self [id number] Medicare Dme Supplies Medigap Part B [id number]89709.0 Self [id number] Medicare Dme Supplies Medigap Part B [id number] 2.0.1.583376.3.227.99.991.327954.0 Self [id number] Medicare Dme Supplies Medigap Part B [id number] 2.16.840.1.450411.3.227.99.991.486461.0 Self [id number] Medicare Dme Supplies Medigap Part B [id number] 2.16.840.1.745481.3.227.99.991.298306.0 Self [id number] Emp/[employer] Medigap Part B [id number] 2.16.840.1.019107.3.227.99.2809.01701.0 Family Dependent [id number] Medicare [facility] Medicare Primary [id number] 2.16.840.1.995272.3.227.99.2809.18774.0 Self [id number] Medicare Dme Supplies Medigap Part B [id number] 2.16840.1.722263.3.227.99.991.032232.0 Self [id number] [facility] Medigap Part B [id number] 2.16840.1.898428.3.227.99.572.02796.0 Family Dependent [id number] Medicare (Part B) Medicare Primary [id number] 2.16.840.1.593162.3.227.99.572.96512.0 Self [id number] [facility] Health Medigap Part B [id number] 2.16840.1.156321.3.227.99.572.88726.0 Family Dependent [id number] Medicare (Part B) Medicare Primary [id number] 2.16.840.1.428915.3.227.99.572.57006.0 Self 0 [id number] [facility] We[employer] Medigap Part B [id number] 2.16840.1.275511.3.227.99.8646.00631.0 Family Dependent [id number] [place] Medicare Primary [id number] 2.16.840.1.644834.3.227.99.8646.30173.0 Self [id number] Emp/[employer] Medigap Part B [id number] 2.16840.1.413535.3.227.99.2809.93849.0 Family Dependent [id number] [place] Medicare Primary [id number] 2.16.840.1.462879.3.227.99.2809.63533.0 Self [id number] [facility] Part B [id number] 2.16840.1.920924.3.227.99 .177.69058.0 Family Dependent [id number] Medicare - NGS Medicare Primary [id number] 2.16.840.1.409007.3.227.99.177.21827.0 Self 0 [id number] [facility] [id number] 2.840.1.895927.3.227.99.572.20879.0 Family Dependent [id number] Medicare (Part B) Medicare Primary [id number] 2.840.1.468871.3.227.99.572.58059.0 Self [id number] [facility] [id number] 2.840.1.426378.3.227.99.8646.15798.0 Family Dependent [id number] Medicare [facility] Medicare Primary [id number] 2.840.1.649062.3.227.99.8646.27045.0 Self [id number] [facility] Medigap Part B [id number] 2.840.1.353543.3.227.99.2809.41956.0 Family Dependent [id number] [place] Medicare Primary [id number] 2.16840.1.555916.3.227.99.2809.54374.0 Self [id number] [facility] [id number] 2.16840.1.677603.3.227.99.8646.98029.0 Family Dependent [id number] Medicare [facility] Medicare Primary [id number] 2.16840.1.581774.3.227.99.8646.60932.0 Self [id number] Emp/[employer] Medigap Part B [id number] 2.840.1.409514.3.227.99.2809.82624.0 Family Dependent [id number] [place] Medicare Primary [id number] 2.0.1.919682.3.227.99.2809.55272.0 Self [id number] [facility] [id number] [place]2 [id number] MEDICARE [id number] Y21 Medicare [place] Medicare Primary [id number] 2.0.1.818101.3.227.99.2809.80981.0 Self [id number] Emp/[employer] Medigap Part B [id number] 2.0.1.547551.3.227.99.2809.92520.0 Family Dependent [id number] Medicare [place] Medicare Primary [id number] 2.0.1.678568.3.227.99.2809.25642.0 Self [id number] Emp/[employer] Commercial [id number] Family Dependent [employer] [place] Commercial [id number] Self BLUE CROSS O [id number] S [id number] C/EMPIRE PLAN O [id number] S [id number] [employer] Health Maintenance Organization (HMO) [id number] Family Dependent EMPIRE (STATE EMP) O [id number] S [id number] EMPIRE / B [id number] S [id number] UNITED HEALTHCARE O [id number] S [id number] [place] Plan-[employer] Commercial [id number] Family Depend ent Emp/[employer] Medigap Part B [id number]2945.0 Family Dependent [id number] [facility] EMPIRE KUMAR DIV [id number] WI2 [id number] UNITED HEALTHCARE [id number] WI2 [id number] BCBS EMPIRE KUMAR DIV [id number] [place]2 [id number] [facility] [id number] WI2 [id number] MEDICARE [id number] SP [id number] A [employer] ([place]) - [employer] Other 0 [id number] Self 0 Medicare Part B of [place] Other 0 [id number] Self 0 Medicare C [id number] SELF [id number] Y21 EMPIRE (STATE EMP) O [id number] S [id number] MEDICARE C [id number] S [id number] [id number] [employer] ([place]) - [employer] Other 0 [id number] Self 0 Medicare Part B [facility] - [place] Other 0 [id number] Self 0 Emp/[employer] Medigap Part B [id number] Family Dependent [id number] [place] Medicare Primary [id number] Self [id number] [facility] [place] Medigap Part B [id number] Family Dependent [id number] [place]/[facility] Medicare Primary [id number] Self [id number] Emp/[employer] Medigap Part B [id number] Family Dependent [id number] Medicare [place] Medicare Primary [id number] Self [id number] [employer] [place] Commercial [id number] Family Dependent [id number] Medicare Natl Gov't Servi Medicare Primary [id number] Self [id number] [facility] Commercial [id number] Family Dependent [id number] Medicare Natl Gov't Servi Medicare Primary [id number] Self [id number] [facility] [id number] Family Dependent [id number] Medicare [place]/NGS Medicare Primary [id number] Self [id number] [facility] Part [facility] [id number] Family Dependent [id number] Medicare [place] Medicare Primary [id number] Self [id number] [facility] Medigap Part B [id number] .[id number] Family Dependent [id number] Medicare [place] Medicare Primary [id number]9.0 Self [id number] Medicare Dme Supplies Medigap Part B [id number] 2.16.840.1.569534.3.227.99.991.756764.0 Self [id number] [facility] [employer] Commercial [id number] 2.16.840.1.580388.3.227.99.1767.09024.0 Self [id number] Medicare Natl Gov't Servi Medicare Primary [id number] 2.16.840.1.253340.3.227.99.1767.85967.0 Self [id number] [facility] Medigap Part B [id number]9.2809.19057.0 Family Dependent [id number] Medicare [place] Medicare Primary [id number] 2.16.840.1.182053.3.227.99.2809.70175.0 Self [id number] Medicare Dme Supplies Medigap Part B [id number] [id number] Self [id number] Medicare Dme Supplies Medigap Part B [id number] Self [id number] Problems, Conditions, and Diagnoses Code Display Name Description Problem Type Effective Dates Data Source(s) M17.11 Unilateral primary osteoarthritis, right knee Unilateral primary osteoarthritis, right Diagnosis 02/21/2021 05:54:00 AM EDT [facility] U07.1 COVID-19 COVID-19 Diagnosis 02/16/2021 08:54:32 AM ED T [facility] [id number] Dysphagia Dysphagia Problem 08/20/2021 12:00:00 AM ED T MEDJOI ([facility]) N40.1 Lower urinary tract symptoms due to yuriy gn prostatic hypertrophy Benign prostatic hyperplasia with lower urinary tract symptoms Problem 07/26/2021 12:00:00 AM EDT eCW1 ([facility]) N52.9 Erectile dysfunction Erectile dysfunction Problem 06/14/2021 12:00:00 AM EDT eCW1 ([facility]) R35.0 Urinary frequency Urinary frequency Problem 06/14/2021 12:00:00 AM EDT eCW1 ([facility]) 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 [facility] Neuropathy due to type 2 diabetes mellitus Problem 05/15/2021 12:00:00 AM EDT [facility] ([facility] M17.11 Right knee DJD Right knee DJD [id number] 02/21/2021 12:00: 00 AM EDT [facility] E11.9 DM (diabetes mellitus) DM (diabetes mellitus) [id number] 02/21/2021 12:00:00 AM EDT [facility] G47.33 Obstructive sleep apnea syndrome Obstructive sle ep apnea syndrome Problem 11/14/2020 12:00:00 AM EST [facility] ([facility] 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 Problem 08/15/2020 12:00:00 AM EDT MARY KAY (Abiodun Moore [facility]) V43.1 Pseudophakia Pseudophakia Problem 08/15/2020 12:00:00 A M EDT [facility] ([facility]) 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 Problem 08/15/2020 12:00:00 AM EDT [facility] ([facility]) V43.1 Pseudophakia Pseudophakia Problem 08/15/2020 12:00:00 A M EDT [facility] ([facility]) Surgeries/Procedures Procedure Description Date Indications Data Source(s) OFFICE OUTPATIENT VISIT 15 MINUTES 08/20/2021 12:00:00 AM EDT MED[facility] ([facility]) Spirometry 07/01/2021 12:00:00 AM EDT M SABRINAENT ([facility], ) OFFICE OUTPATIENT VISIT 25 MINUTES 07/01/2021 12:00:00 AM EDT [facility] ([facility], ) SHVG SKIN LESION 1 F/E/E/N/L/M DIAM 0.6-1.0 CM 021 12:00:00 AM EDT [facility] ([facility] OFFICE OUTPATIENT VISIT 25 MINUTES 06/25/2021 12:00:00 AM EDT MED[facility] ([facility]) ECG ROUTINE ECG W/LEAST 12 LDS W/I&R 06/21/2021 12:00: 00 AM EDT MED[facility] ([facility]) OFFICE OUTPATIENT VISIT 25 MINUTES 06/21/2021 12:00:00 AM EDT [facility] ([facility]) uro PVR (Post Voiding Residual) Bladder Scan 12:00:00 AM EDT eCW1 ([facility]) Diabetic Foot Exam 05/15/2021 12:00:00 AM EDT [facility] ([facility] Trans Care SRV Aft DC W/I 14D, Comm W/I 2 Dys Med Decs 03/04/2021 12:00:00 AM EDT [facility] ([facility] GLUC BLD GLUC MNTR DEV CLEARED FDA SPEC HOME USE <td>P OCT GLUCOSE</td><td>Routine</td><td>02/22/2021 8:23 AM EDT</td><td></td><td> </td> 02/22/2021 12:23:00 PM EDT [facility] DUP-SCAN XTR VEINS UNILATERAL/LIMITED STUDY <td>US LOW ER EXTREMITY VENOUS RIGHT</td><td>Routine</td><td>02/22/2021 8:07 AM EDT</td><td></td><td> </td> 02/22/2021 12:07:57 PM EDT [facility] BLOOD COUNT COMPLETE AUTOMATED <td>CBC</td><td>Routine </td><td>02/22/2021 4:31 AM EDT</td><td></td><td> </td> 02/22/2021 08:31:00 AM EDT [facility] GLUC BLD GLUC MNTR DEV CLEARED FDA SPEC HOME USE <td>P OCT GLUCOSE</td><td>Routine</td><td>02/21/2021 6:32 PM EDT</td><td></td><td> </td> 02/21/2021 10:32:00 PM EDT [facility] GLUC BLD GLUC MNTR DEV CLEARED FDA SPEC HOME USE <td>P OCT GLUCOSE</td><td>Routine</td><td>02/21/2021 2:00 PM EDT</td><td></td><td> </td> 02/21/2021 06:00:00 PM EDT [facility] GLUC BLD GLUC MNTR DEV CLEARED FDA SPEC HOME USE <td>P OCT GLUCOSE</td><td>Routine</td><td>02/21/2021 11:21 AM EDT</td><td></td><td> </td> 02/21/2021 03:21:00 PM EDT [facility] ARTHRP KNE CONDYLE&PLATU MEDIAL&LAT CMPRTS <td>ARTHROP LASTY, KNEE, TOTAL</td><td></td><td>02/21/2021 9:47 AM EDT</td><td> Unilateral primary osteoarthritis, right knee</td><td></td> 02/21/2021 01:47:00 PM EDT - 02/21/2021 03:40:00 PM EDT Unilateral primary osteoarthritis, right knee [facility] Unilateral primary osteoarthritis, right knee GLUC BLD GLUC MNTR DEV CLEARED FDA SPEC HOME USE <td>P OCT GLUCOSE</td><td>Routine</td><td>02/21/2021 7:34 AM EDT</td><td></td><td> </td> 02/21/2021 11:34:00 AM EDT [facility] URNLS DIP STICK/TABLET RGNT AUTO W/O MICROSCOPY <td>UR INALYSIS W/O MICRO</td><td>Routine</td><td>02/08/2021 2:15 PM EDT</td><td> Unilateral primary osteoarthritis, right knee</td><td> </td> 02/08/2021 06:15:00 PM EDT Unilateral primary osteoarthritis, right knee [facility] Unilateral primary osteoarthritis, right knee THROMBOPLASTIN TIME PARTIAL PLASMA/WHOLE BLOOD <td>APTT</td><td>Routine</td><td>02/08/2021 2:10 PM EDT</td><td> Unilateral primary osteoarthritis, right knee</td><td> </td> 02/08/2021 06:10:00 PM EDT Unilateral primary osteoarthritis, right knee [facility] Unilateral primary osteoarthritis, right knee PROTHROMBIN TIME <td>PROTIME-INR</td><td>Rout ine</td><td>02/08/2021 2:10 PM EDT</td><td> Unilateral primary osteoarthritis, right knee</td><td> </td> 02/08/2021 06:10:00 PM EDT Unilateral primary osteoarthritis, right knee [facility] Unilateral primary osteoarthritis, right knee BLOOD COUNT COMPLETE AUTOMATED <td>CBC</td><td>Routine </td><td>02/08/2021 2:10 PM EDT</td><td> Unilateral primary osteoarthritis, right knee</td><td> </td> 02/08/2021 06:10:00 PM EDT Unilateral primary osteoarthritis, right knee [facility] Unilateral primary osteoarthritis, right knee BLOOD TYPING ABO <td>TYPE AND SCREEN</td><td> Routine</td><td>02/08/2021 2:10 PM EDT</td><td> Unilateral primary osteoarthritis, right knee</td><td> </td> 02/08/2021 06:10:00 PM EDT Unilateral primary osteoarthritis, right knee [facility] Unilateral primary osteoarthritis, right knee HEMOGLOBIN GLYCOSYLATED A1C <td>HEMOGLOBIN A1C</td><td>Routine</td><td>02/08/2021 2:10 PM EDT</td><td> Unilateral primary osteoarthritis, right knee</td><td> </td> 02/08/2021 06:10:00 PM EDT Unilateral primary osteoarthritis, right knee [facility] Unilateral primary osteoarthritis, right knee COMPREHENSIVE METABOLIC PANEL <td>COMPREHENSIVE METABO LIC PANEL</td><td>Routine</td><td>02/08/2021 2:10 PM EDT</td><td> Unilateral primary osteoarthritis, right knee</td><td> </td> 02/08/2021 06:10:00 PM EDT Unilateral primary osteoarthritis, right knee [facility] Unilateral primary osteoarthritis, right knee SHAVING SKIN LESION 1 F/E/E/N/L/M DIAM 0.5 CM/< 2020 12:00:00 AM EDT [facility] ([facility]) MYOCARDIAL SPECT MULTIPLE STUDIES 01/14/2021 12:00:00 AM EST [facility] ([facility]) CV STRS TST XERS&/OR RX CONT ECG PHYS SI&R 01/14/2021 12:00:00 AM EST [facility] ([facility]) ECG ROUTINE ECG W/LEAST 12 LDS W/I&R 01/10/2021 12:00: 00 AM EST [facility] ([facility]) OFFICE OUTPATIENT VISIT 25 MINUTES 01/10/2021 12:00:00 AM EST [facility] ([facility]) OFFICE OUTPATIENT VISIT 25 MINUTES 01/03/2021 12:00:00 AM EST [facility] ([facility] Intermediate Eye Exam Established Patient (Signi/Sep E itzel. & Man.) Intermediate Eye Exam Established Patient (Signi/Sep Eval. & Man.) 01/02/2021 12:00:00 AM EST MARY KAY (Abiodun Moore MD [facility]) Ophthalmic biometry - IOL Master with IOL calculation Ophthalmic biometry - IOL Master with IOL calculation 01/02/2021 12:00:[address] (Abiodun Moore MD [facility]) RADIOLOGIC EXAM KNEE COMPLETE 4/MORE VIEWS 12/12/2020 12:00:00 AM EST [facility] ([facility] ) ARTHROCENTESIS ASPIR&/INJECTION INTERM JT/BURSA 2019 12:00:00 AM EST [facility] ([facility]) ARTHROCENTESIS ASPIR&/INJECTION MAJOR JT/BURSA 12:00:00 AM EST [facility] ([facility]) ARTHROCENTESIS ASPIR&/INJECTION SMALL JT/BURSA 12:00:00 AM EST [facility] ([facility]) RADEX SHOULDER COMPLETE MINIMUM 2 VIEWS 10/25/2020 12: 00:00 AM EST [facility] ([facility]) ARTHROCENTESIS ASPIR&/INJECTION MAJOR JT/BURSA 12:00:00 AM EST [facility] ([facility]) ECHO TTHRC R-T 2D W/WOM-MODE COMPL SPEC&COLR DOP 08/21 12:00:00 AM EDT [facility] ([facility]) Surgical / procedural history Ablation [id number], Repair retinal detachment left eye 2016 Surgical / procedural history Ablation [id number], Repair retinal detachment left eye 2016 08/15/2020 12:00:00 AM EDT MARY KAY (Abiodun Moore MD [facility]) Extracapsular extraction of lens (procedure) History o f extracapsular cataract extraction PCIOL OS 02/12/[address] Chen 08/15/2020 12:00:00 AM EDT MARY KAY (Abiodun Moore MD [facility]) Intermediate Eye Exam Established Patient Intermediate Eye Exam Established Patient 08/15/2020 12:00:00 AM EDT MARY KAY (Jose Moore MD [facility]) Intermediate Eye Exam Established Patient Intermediate Eye Exam Established Patient 08/15/2020 12:00:00 AM EDT MARY KAY (Jose Moore MD [facility]) Results ID Date Data Source [id number] 09/10/2021 01:05:00 PM EDT [facility] ([facility] Name Value Range Interpretation Code Description Data Christel rce(s) Supporting Document(s) Erythrocyte sedimentation rate by 2H Westergren method 2 mm/hr 0-2 0 [facility] ([facility] ID Date Data Source [id number] 09/05/2021 02:25:00 PM EDT [facility] ([facility] Name Value Range Interpretation Code Description Data Christel rce(s) Supporting Document(s) C reactive protein [Mass/volume] in Serum or Plasma by High sensitivity method Laboratory test result 0.00-0.30 [facility] ([facility] ID Date Data Source [id number] 09/05/2021 02:25:00 PM EDT [facility] ([facility] Name Value Range Interpretation Code Description Data Christel rce(s) Supporting Document(s) White Blood Count 8.4 10 4.0-10.0 [facility] ([facility] Hematocrit 46.8 % 42.0-52.0 [facility] ([facility] Red Blood Count 5.31 10 4.30-6.10 [facility] ([facility] Hemoglobin 15.9 g/dL 13.5-17.5 [facility] ([facility] Mean Corpuscular Hemoglobin 29.9 pg 27.0-33.0 [facility] ([facility] Mean Corpuscular HGB Conc 34.0 g/dL 32.0-36.5 [facility] ([facility] Mean Corpuscular Volume 88.1 fl 80.0-96.0 M [facility]ENT ([facility] Red Cell Distribution Width 12.6 % 11.5-14.5 [facility] ([facility] Neutrophils % 67.5 % 36.0-66.0 [facility] ([facility] Platelet Count, Automated 226 10 150-450 [facility] ([facility] Lymph % 23.3 % 24.0-44.0 [facility] ([facility] Kent % 7.3 % 2.0-8.0 [facility] ([facility] Eos % 1.0 % 0.0-3.0 [facility] ([facility] Baso % 0.2 % 0.0-1.0 [facility] ([facility] Nucleated Red Blood Cell % 0.0 % 0-0 [facility] ([facility] Immature Granulocyte % 0.7 % 0-3.0 [facility] ([facility] Neutrophils # 5.7 10 1.5-8.5 [facility] ([facility] Lymph # 2.0 10 1.5-5.0 [facility] ([facility] Kent # 0.6 10 0.0-0.8 [facility] ([facility] Eos # 0.1 10 0.0-0.5 [facility] ([facility] Baso # 0.0 10 0.0-0.2 [facility] ([facility] ID Date Data Source [id number] 09/12/2021 10:04:56 AM EDT [facility] PCName: Zhou MartellB: 2Provider: Una Reagan: 09/05/2021 Reason For VisitCharera Dinh is here today for Right Knee. Zhou has not had the Covid vaccine. Zhou Dinh is an established patient here for follow up. Surgery DOS: 02/21/2021. Surgery Description: RTKA. Patient is retired. History of Present IllnessPatient is still struggling with pain in the knee, he states that he just has a constant dull ache, most of the pain is on the lateral aspect of the knee. He also still has some numbness surrounding the knee as well. On occasion he will have some buckling and instability to the knee. He has tramadol, but he tries not to take the narcotic pain medication, it also has not really helped in the past and Tylenol gives him no relief. Results/DataXRays were ordered, obtained and interpreted today in the office. Indication: pain/dysfunction. Side: Right Site: Knee Views: 3 Views, Standing AP, Lateral and Merchant's Findings: hardware is in good position. no evidence of implant loosening. AssessmentStatus post right cruciate retaining total knee on 02/21/2021 with continued painPlan: I reassured him that the x-rays look okay, and get a go ahead with the blood work, CBC CRP and sed rate. I also Sana give him a prescription for Flexeril to take to help him at nighttime with sleeping. We will see what the blood work shows, I do want him to continue with a home exercise program to really keep strengthening the quadricep muscle. At this point he understands that sometimes it just takes time for the knee to heal. We will see him back in about a month to see how he is progressing along. Plan Start: Cyclobenzaprine HCl - 10 MG Oral Tablet; Take 1 tablet twice daily Rx By: Wanda Reagan; Dispense: 15 Days ; #:30 Tablet; Refill: 0;For: Knee pain; TORRIE = N; Verified Transmission to [facility] #04; Last Updated By: System, [employer]; 09/05/2021 1:22:31 PM CBC w/ diff (DIFORD, HCT, HGB, MCH, MCHC, MCV, MPV, PLT, RBC, RDW, WBC);Status:Active; Requested for:05Sep2021; Perform:[facility]; Due:15Sep2021; Last Updated By:Rashida Max; 09/05/2021 1:22:49 PM;Ordered; For:Right knee pain; Ordered By:Wanda Reagan; CRP ( C- Reactive Protein ); Status:Active; Requested for:05Sep2021; Perform:[facility]; Due:15Sep2021; Last Updated By:Rashida Max; 09/05/2021 1:22:49 PM;Ordered; For:Right knee pain; Ordered By:Wanda Reagan; Sed Rate ( ESR ); Status:Active; Requested for:05Sep2021; Perform:[facility]; Due:15Sep2021; Last Updated By:Rashida Max; 09/05/2021 1:22:49 PM;Ordered; For:Right knee pain; Ordered By:Wanda Reagan; X-Ray I Knee - 3 views (XRays were ordered, obtained and interpreted today in theoffice. Indication: pain/dysfunction.); Status:Complete; Done: 05Sep2021 Perform:SOS22; Due:19Sep2021; Last Updated By:Robert Narayanan; 09/05/2021 12:55:24 PM;Ordered; For:Osteoarthritis of right knee; Ordered By:Wanda Reagan;Weight Bearing Status : Weight bearingLaterality: : Right Plan, Assessment and Recommendation(s) Schedule appointment: in 4-6 weeks. The nature of the diagnosis and various treatment alternatives were discussed today, including invasive, operative, and non-operative options. This document was dictated and electronically signed using Playtika software. A reasonable attempt at proof reading has been made to minimize errors. Please call with any questions. Signatures Electronically signed by : Wanda Reagan PA-C; Sep 11 2021 3:57PM EST (Author) Electronically signed by : Red Rader M.D.; Sep 12 2021 10:04AM EST Name Value Range Interpretation Code Description Data Christel rce(s) Supporting Document(s) ID Date Data Source [id number] 06/25/2021 11:58:00 AM EDT [facility] ([facility]) Name Value Range Interpretation Code Description Data Christel rce(s) Supporting Document(s) Laboratory test finding (navigational concept) Laboratory test result [facility] ([facility][1]) No further treatment Laboratory test finding (navigational concept) Laboratory test result [facility] ([facility][1]) No further treatment ID Date Data Source [id number] 06/14/2021 11:00:00 AM EDT [facility] ([facility] Name Value Range Interpretation Code Description Data Christel rce(s) Supporting Document(s) Delvis/Creat Ratio 10.7 MCG/MG 0.0-30.0 [facility] ([facility] THE [employer] STATES THAT MICROALBUMINURIA IS PRESENT IF THE MICROALBUMIN/CREATININE RATIO EXCEEDS 30 MCG/MG. THE THRESHOLD FOR CLINICAL ALBUMINURIA IS REACHED AT 300 MCG/MG. THE CLASSIFICATION OF A PATIENT SHOULD BE BASED UPON AT LEAST 2 OF 3 ABNORMAL RESULTS ON SPECIMENS COLLECTED WITHIN A 3 TO 6 MONTH TIME FRAME. Malb Urine Siemens Laboratory test result [facility] ([facility] Creatinine, Urine 46.6 mg/dL [facility] ([facility] ID Date Data Source [id number] 06/14/2021 11:00:00 AM EDT [facility] ([facility] Name Value Range Interpretation Code Description Data Christel rce(s) Supporting Document(s) Hemoglobin A1c/Hemoglobin.total in Blood 6.2 % [facility] ([facility] <content>REFERENCE RANGES:</content><br/ ><content></content>
<content><=5.6% NORMAL</content>
<content>5.7-6.4% SUGGESTS IMPAIRED GLUCOSE METABOLISM/PREDIABETIC</content>
<content>>= 6.5% ABNORMAL</content>
<content></content> Estimated Average Glucose 131 mg/dL 60-110 [facility] ([facility] ID Date Data Source [id number] 06/14/2021 11:00:00 AM EDT [facility] ([facility] Name Value Range Interpretation Code Description Data Christel rce(s) Supporting Document(s) Glucose, Fasting 169 mg/dL 70-100 [facility] ([facility] Blood Urea Nitrogen 13 mg/dL 7-18 [facility] ([facility] Glomerular Filtration Rate Laboratory test result [facility] ([facility] <content>Units are mL/min/1.73 m2</content>
<content></content>
<content>Chronic Kidney Disease Staging per NKF:</content>
<content></content>
<content>Stage I & II GFR >=60 Normal to Mildly Decreased</content>
<content>Stage III GFR 30- 59 Moderately Decreased</content>
<content>Stage IV GFR 15-29 Severely Decreased</content>
<content>Stage V GFR <15 Very Little GFR Left</content>
<content>ESRD GFR <15 on SCIENTIFIC PUBLICATIONS EDITOR</content>
<content></content> Creatinine For GFR 0.80 mg/dL 0.70-1.30 [facility] ([facility] Sodium Level 140 meq/L 136-145 [facility] ([facility] Chloride Level 102 meq/L 98-107 [facility] ([facility] Potassium Serum 4.3 meq/L 3.5-5.1 [facility] ([facility] Anion Gap 5 meq/L 8-16 [facility] ([facility] Calcium Level 8.7 mg/dL 8.8-10.2 [facility] ([facility] Carbon Dioxide Level 33 meq/L 21-32 [facility] ([facility] Ast/Sgot 15 U/L 7-37 [facility] ([facility] Alkaline Phosphatase 82 U/L 45-117 [facility] ([facility] Alt/SGPT 20 U/L 12-78 [facility] ([facility] Bilirubin,Total 0.7 mg/dL 0.2-1.0 [facility] ([facility] Total Protein 6.9 GM/DL 6.4-8.2 [facility] ([facility] Albumin 3.8 GM/DL 3.2-5.2 [facility] ([facility] Albumin/Globulin Ratio 1.2 [facility] ([facility] ID Date Data Source [id number] 06/14/2021 11:00:00 AM EDT [facility] ([facility]) Name Value Range Interpretation Code Description Data Christel rce(s) Supporting Document(s) Creatinine, Urine 46.6 mg/dL [facility] ([facility]) Malb Urine Siemens Laboratory test result [facility] ([facility]) Delvis/Creat Ratio 10.7 MCG/MG 0.0-30.0 [facility] ([facility]) THE [employer] STATES THAT MICROALBUMINURIA IS PRESENT IF THE MICROALBUMIN/CREATININE RATIO EXCEEDS 30 MCG/MG. THE THRESHOLD FOR CLINICAL ALBUMINURIA IS REACHED AT 300 MCG/MG. THE CLASSIFICATION OF A PATIENT SHOULD BE BASED UPON AT LEAST 2 OF 3 ABNORMAL RESULTS ON SPECIMENS COLLECTED WITHIN A 3 TO 6 MONTH TIME FRAME. ID Date Data Source [id number] 06/14/2021 11:00:00 AM EDT [facility] ([facility]) Name Value Range Interpretation Code Description Data Christel rce(s) Supporting Document(s) Glucose, Fasting 169 mg/dL 70-100 [facility] ([facility]) Creatinine For GFR 0.80 mg/dL 0.70-1.30 [facility] ([facility]) Blood Urea Nitrogen 13 mg/dL 7-18 [facility] ([facility] Glomerular Filtration Rate Laboratory test result [facility] ([facility]) <content>Units are mL/min/1.73 m2</content>
<content></content>
<content>Chronic Kidney Disease Staging per NKF:</content>
<content></content>
<content>Stage I & II GFR >=60 Normal to Mildly Decreased</content>
<content>Stage III GFR 30- 59 Moderately Decreased</content>
<content>Stage IV GFR 15-29 Severely Decreased</content>
<content>Stage V GFR <15 Very Little GFR Left</content>
<content>ESRD GFR <15 on SCIENTIFIC PUBLICATIONS EDITOR</content>
<content></content>
<content></content> Sodium Level 140 meq/L 136-145 [facility] ([facility]) Chloride Level 102 meq/L 98-107 [facility] ([facility]) Potassium Serum 4.3 meq/L 3.5-5.1 [facility] ([facility]) Carbon Dioxide Level 33 meq/L 21-32 [facility] ([facility]) Anion gap in Serum or Plasma 5 meq/L 8-16 [facility] ([facility]) Calcium Level 8.7 mg/dL 8.8-10.2 [facility] ([facility]) Alanine aminotransferase [Enzymatic activity/volume] in Seru m or Plasma 20 U/L 12-78 [facility] ([facility]) Aspartate aminotransferase [Enzymatic activity/volume] in Serum or Plasma 15 U/L 7-37 [facility] ([facility] [employer] [facility]) Alkaline phosphatase [Enzymatic activity/volume] in Serum or Plasma 82 U/L 45-117 [facility] ([facility]) Total Protein 6.9 GM/DL 6.4-8.2 [facility] ([facility]) Bilirubin,Total 0.7 mg/dL 0.2-1.0 [facility] ([facility]) Albumin 3.8 GM/DL 3.2-5.2 [facility] Albumin/Globulin Ratio 1.2 [facility] ([facility]) ID Date Data Source [id number] 06/14/2021 09:07:00 AM EDT [facility] Name Value Range Interpretation Code Description Data Christel rce(s) Supporting Document(s) Aspartate aminotransferase [Enzymatic activity/volume] in Serum or Plasma 15 [facility] ([facility]) Alk Phos 82 [facility] Alanine aminotransferase [Enzymatic activity/volume] in Serum or Pl asma 20 [facility] ([facility]) Total Bilirubin 0.7 [facility] Albumin 3.8 [facility] Total Protein 6.9 [facility] A/G Ratio 1.2 [facility] ID Date Data Source [id number] 06/14/2021 09:07:00 AM EDT [facility] ([facility] Name Value Range Interpretation Code Description Data Christel rce(s) Supporting Document(s) Blood Urea Nitrogen 13 [facility] Glucose 169 [facility] Creatinine 0.80 [facility]) Sodium 140 [facility] Potassium 4.3 [facility] Chloride 102 [facility] Carbon Dioxide 33 [facility] Calcium 8.7 [facility] Glomerular filtration rate/1.73 sq M.pre dicted [Volume Rate/Area] in Serum or Plasma by Creatinine-based formula (MDRD) Laboratory test result [facility] ([facility]) ID Date Data Source [id number] 06/14/2021 09:07:00 AM EDT [facility] ([facility] Name Value Range Interpretation Code Description Data Christel rce(s) Supporting Document(s) Hemoglobin A1c/Hemoglobin.total in Blood 6.2 [facility] ([facility]) ID Date Data Source [id number] 06/04/2021 11:26:25 AM EDT [facility]: Zhou DinhANGELITA: 1950rovider: Una Reagan: 06/03/2021 Reason For VisitCharera Dinh is here today for Right Knee. Zhou has not had the Covid vaccine. Zhou Dinh is an established patient here for follow up. Surgery DOS: 02/21/2021. Surgery Description: RTKA. Patient is retired. History of Present IllnessPatient is still having some discomfort in the knee especially with flexion and going downstairs. He states that at nighttime he still struggling with throbbing pain as well. He is seeing progress with physical therapy, just very slow. AssessmentRight total knee cruciate retaining knee on 02/21/2021lan: Patient is still struggling with some pain especially with going downstairs and flexion. He is getting received 1 final refill of tramadol that he can take at nighttime mostly for the pain. I explained to him that the knee is still healing, his extension and flexion is great, 0 to 130 degrees he has no swelling. He is going to follow back up in 3 months at this time if still hurting we will consider a new x-ray. He states that he has some sensations of instability to the knee, but it is more so needing to strengthen the quadricep muscle at this point. She agrees with the plan. PlanPlan, Assessment and Recommendation(s) Schedule Appointment: Months: 3 The nature of the diagnosis and various treatment alternatives were discussed today, including invasive, operative, and non-operative options. This document was dictated and electronically signed using Playtika software. A reasonable attempt at proof reading has been made to minimize errors. Please call with any questions. Signatures Electronically signed by : Wanda Reagan PA-C; Jun 03 2021 10:50AM EST (Author) Electronically signed by : Red Rader M.D.; Jun 04 2021 11:26AM EST Name Value Range Interpretation Code Description Data Christel rce(s) Supporting Document(s) ID Date Data Source [id number] 04/17/2021 12:45:28 PM EDT [facility] PCName: Zhou DinhDOB: 2Provider: Prasanth RadhaOS: 04/16/2021 Reason For VisitCharera Dinh is here today for Right Knee. Zhou has not had the Covid vaccine. 8 weeks post op; Patient states knee is doing mostly good. He states that he still has lateral pain and feels burning/tearing sensation along incision. PT 3x/week. Cane to ambulate. Hydrocodone PRN, Tylenol PRN. Incision benign. Surgery DOS: 02/21/2021. Surgery Description: RTKA. Patient is retired. AssessmentREASON FOR VISIT:Eight weeks status post a cruciate-retaining right total knee replacementThis 71-year-old male had a Escobar [employer] knee performed on 02/21/21. His pre-op range of motion was 0 to 115. He is ambulating with a cane. He is going to physical therapy three times a week. He is not quite out to full extension. He complains of burning lateral compartment pain. He uses hydrocodone and Tylenol. He is on Eliquis for atrial fibrillation.PAST MEDICAL HISTORY:Please see intake. PHYSICAL EXAMINATION:He is 5'7 and weighs 180 pounds.Examination of the right knee: The knee looks good. It is not warm to touch. There is no effusion or redness. He extends to about +5 and flexes to about 120. No laxity. He has good motion of his hip.X-RAYS:I reviewed x-rays that were done in the past. He has no obvious abnormality. The alignment looks good.IMPRESSION:Cruciate-retaining Escobar right total kneeRECOMMENDATION: Continue outpatient physical therapy, with an emphasis on achieving full extension. Tramadol was called in for pain. We will see him in six to eight weeks to check his motion. Plan Start: traMADol HCl - 50 MG Oral Tablet; TAKE 1 TABLET Every 6 hours PRN pain Rx By: Red Rader; Dispense: 8 Days ; #:30 Tablet; Refill: 0;For: Knee pain; TORRIE = N; Verified Transmission to [facility] #04; Msg to Pharmacy: Reference #: [id number]; Last Updated By: Georgie Alegria; 04/16/2021 5:18:06 PM Signatures Electronically signed by : Edelmira Altman, ; Apr 17 2021 9:20AM EST Electronically signed by : Red Rader M.D.; Apr 17 2021 12:45PM EST Name Value Range Interpretation Code Description Data Christel rce(s) Supporting Document(s) ID Date Data Source [id number] 04/03/2021 10:03:23 AM EDT [facility]: Zhou DinhANGELITA: 2Provider: Una Reagan: 03/28/2021 Reason For VisitCharera Dinh is here today for Right knee. Zhou has not had the Covid vaccine. Zhou Dinh is an established patient here for follow up. Surgery DOS: 02/21/2021. Surgery Description: Right TKA. Patient states their pain is a 5-8 out of 10. Patient states he has numbness and sore pain. Patient is retired. History of Present IllnessPatient is having pain to the lateral aspect of his knee. He was doing really well with the knee up until about 4 days ago when he noticed increased pain stiffness and some swelling. Denies any redness or warmth or fevers. No injury, attending outpatient physical therapy. AssessmentStatus post cruciate retaining right total knee arthroplastyPlan: I reassured him that everything looks good, no signs of infection. He could be an adhesion which caused some of the increased pain. I recommend he continue with outpatient physical therapy. Hydrocodone does not seem to really be giving him much relief so we talked about doing 2 tablets at a time to see if that helps, then once the pain gets better going to 1 tablet then eventually to Tylenol. He will keep his follow-up appointment which is scheduled in a few weeks, for reevaluation to make sure that the knee is continuing to progress along. If any fevers chills redness warmth or swelling occur in the meantime call the office sooner. He understands and agrees with the plan. Plan X-Ray I Knee - 3 views (XRays were ordered, obtained and interpreted today in theoffice. Indication: pain/dysfunction.); Status:Complete; Done: [id number] Perform:SOS22; Due:[id number]; Last Updated By:Mady Carrasquillo; 03/28/2021 1:55:48 PM;Ordered; For:Knee pain; Ordered By:aWnda Reagan;Weight Bearing Status : Weight bearingLaterality: : Right Plan, Assessment and Recommendation(s) Schedule Appointment: Weeks: 3 The nature of the diagnosis and various treatment alternatives were discussed today, including invasive, operative, and non- operative options. DisclaimersThis document was dictated and electronically signed using Playtika software. A reasonable attempt at proof reading has been made to minimize errors. Please call with any questions. Signatures Electronically signed by : Wanda Reagan PA-C; Apr 02 2021 4:45PM EST (Author) Electronically signed by : Red Rader M.D.; Apr 03 2021 10:03AM EST Name Value Range Interpretation Code Description Data Christel rce(s) Supporting Document(s) ID Date Data Source [id number] 03/05/2021 05:41:55 PM EDT [facility] PCName: Zhou DinhB: 2Provider: Ludmila Barragan: 03/05/2021 Reason For VisitChakurtis Dinh is here today for Right knee. Zhou has not had the Covid vaccine. Zhou Dinh is here for first post-op appointment. Surgery DOS: 02/21/2021. Surgery Description: Right TKA. Patient is retired. AssessmentChief complaint: 12 days status post cruciate retaining right total knee arthroplasty February 21, 2021History obtained from the patient, chronic stable -[id number] retired patient in the office with a family member doing well. Using compression stockings, Eliquis for anticoagulation, oxycodone for pain, getting outpatient physical therapy. Patient is using a walker, denies fevers.General: Alert and oriented x 3, no distress, normal mood and affect. Skin: warm and dry.Right knee: Incision without redness or drainage. Positive swelling and ecchymosis. Calf supple nontender, positive ankle and foot edema, pedal and post-tibial pulses are normal. Sensation is intact. Range of motion 5 to 95 degreesX-rays: AP standing, lateral and merchants of the right knee ordered, obtained and interpreted by me today to evaluate right total knee arth roplasty show the components in good position without signs of loosening or wear.Impression: Primary osteoarthritis right knee, 12 days status post a cruciate retaining right total knee arthroplastyPlan: I recommended that the patient continue Eliquis since he is taking for A. fib, discontinue compression stockings, Ice and elevate the leg. Patient may drive when they can react quickly in case of an accident and no longer taking pain medicine. Continue therapy, follow-up in 4 weeks. Patient agrees with the plan. Plan X-Ray I Knee - 3 views (XRays were ordered, obtained and interpreted today in theoffice. Indication: pain/dysfunction.); Status:Complete; Done: [id number] Perform:SOS29; Due:[id number]; Last Updated By:Wanda Salcido; 03/05/2021 1:44:30 PM;Ordered; For:Right knee pain; Ordered By:Gregory Barragan;Weight Bearing Status : Weight bearingLaterality: : Right Work / School Note Zhou Dinh is retired. DisclaimersThis document was dictated and electronically signed using Playtika software. A reasonable attempt at proof reading has been made to minimize errors. Please call with any questions. Signatures Electronically signed by : Elizabeth Vargas; Mar 05 2021 2:23PM EST (Author) Electronically signed by : Red Rader M.D.; Mar 05 2021 5:41PM EST Name Value Range Interpretation Code Description Data Hcristel rce(s) Supporting Document(s) ID Date Data Source [id number] 02/23/2021 09:25:49 AM EDT [facility] INFORMATIONPatient MRN Name Date of Age Gend*PT [id number] Zhou Dinh 1950 71 years M SDCXPT Location Admission Date/Time Visit ID Attending [id number] 02/21/21 0554 --- --- EPI ID CSN Admitting Provider [id number] Red Rader MD([id number]) [place] [address] OPERATIVE REPORT OPNAME: ZHOU DINH#: [id number] #: [id number] ADMISSION DATE: 02/21/2021OB: 1950 SEX: M PT [facility] [id number] CARE PHYSICIAN:DATE OF OPERATION: 1PREOPERATIVE DIAGNOSIS:End-stage posttraumatic osteoarthritis, right knee.POSTOPERATIVE DIAGNOSIS:End-stage posttraumatic osteoarthritis, right knee.PROCEDURE:Cruciate- retaining right total knee.ANESTHESIA:Spinal with an adductor block.SURGEON:Red Rader MDASSISTANT:Gregory Ramírez RPA.COMPONENTS:[employer] knee, #5 tibia, #5 CR femur. The tibia had a 20 mm stem. 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 Lives in [facility]. Multiple knee injuries scoped in the past, steroidinjections, medications. X-rays confirmed end-stage nuva-oc-qakf arthritisof the knee with adbb-qp-vlum disease medially and lateral subluxation ofthe tibia. His preoperative range of motion 0-115, varus.INTRAOPERATIVE FINDINGS:Severe tricompartmental disease with the worst involvement being medially,impressive osteophytes on the femur. Bone quality was excellent.DESCRIPTION OF PROCEDURE:Intravenous cefazolin 2 grams was given within one hour of incision timeand ordered to be stopped within 24 hours of surgery. The patient wasbrought into the operating room, having achieved appropriate anesthesia inthe block room. Prophylactic antibiotics were given. A Latif catheter hadalready been placed. The patient was positioned on the operative table inthe supine position with a bump under the buttock and a tourniquet aroundthe thigh. The lower extremity was formally prepped and draped. The sideidentification was formally confirmed. The leg was exsanguinated, and atourniquet was inflated to 300 mmHg. The incision began two fingerbreadthsabove the patella and extended down medial to the tibial tubercle. It wasextended through the skin and subcutaneous tissue, down to the deep fascia.A medial arthrotomy was performed. We subperiosteally dissected the softtissue off the proximal and medial tibia. The patella was everted. Precutdepth was measured, and using a hands-free technique we removed enough boneto leave a width of between 12 and 13 mm of bone. The patella was sized,and the appropriate sized patella was selected and lug holes were drilled.The knee was flexed, and the patella was everted. The anterior portion ofthe medial and lateral ligaments and the anterior cruciate ligament wereexcised. The femoral canal was sounded with a large femoral drill. Thedistal femoral cutting guide was placed at an angle of 5-6 degrees, and 10mm of bone was removed. The femur was sized, and the appropriate rotationalpins were placed. The appropriate sized collar cutting guide was securedwith pins, and the anterior and posterior condylar cuts, chamfer cuts, andpatellar notch cut were made. Osteophytes were removed. The tibia wassubluxed anteriorly, and the remaining portions of the medial and lateralmenisci were excised. The proximal tibial cutting guide was placed parallelto the tibial crest with about a 5 degree posterior slope, andapproximately 10-12 mm of bone was removed from the proximal tibia,preserving the posterior cruciate ligament. The tibia was sized.Osteophytes from the back of the femur were checked for and appropriatelyremoved. A trial reduction was done with the appropriate size femur andtibia and the appropriate size insert. The rotation of the tibial componentwas marked. The trial components were removed. The tibial base plate wasplaced in the appropriate rotational position, secured, and the stem cutand keel cut were made using the Sherif guide. The trials were removed.Pulsatile irrigation was used to clean out the knee. Cement was mixed usinga suction system. The tibia was cemented first, followed by the femur. Thetrial insert was placed. The knee was held in extension. The patella wasplaced and held with a patellar clamp. Once the cement was hard, excesscement was removed with an osteotome, and the appropriate size insert wasplaced. The deep fascia was closed with interrupted qwmywv-ek-otuhq #2Vicryl. The subcu was closed with a running 0 V-Loc suture in thesubcuticular with a running 2-0 V-Loc suture. A sterile dressing wasapplied. I was present for mulligan portions of the operative procedure, whichincluded the side identification, operative exposure, insertion of thecomponents, and initiation of closure. In addition, I was immedi atelyavailable to return to the operating room should there be any potential orrealized complications.P.o. tranexamic acid, pain cocktail injected.JASON Marcos/NTS Job #: [id number] DOC #: [id number]: DAMIEN Perez . Name Value Range Interpretation Code Description Data Christel rce(s) Supporting Document(s) ID Date Data Source [id number] 02/23/2021 09:24:52 AM EDT [facility] INFORMATIONPatient MRN Name Date of Age Gend*PT [id number] hZou Dinh 1950 71 years M SDCXPT Location Admission Date/Time Visit ID Attending [id number] 02/21/21 0554 --- --- EPI ID CSN Admitting Provider [id number] Red Rader MD([id number]) Attestation signed by Red Rader MD at 02/23/2021 9:24 AMChart reviewed, I agree with the findings and plan of care as communicated tothe Midlevel provider.Signature: Red Rader MDDate: February 23, 2021Time: 9:24 AM ORTHOPEDIC DISCHARGE SUMMARYPatient Name: Zhou Dinh of : 1950 Age 71 yearsPrimary Physician: DAMIEN Perez PCP Sxqsbdnrd Date: 02/21/2021 Discharge Date: 02/22/2021dmission Provider: Red Rader MD Discharge Provider: Rogerio Garduno Diagnoses:Principal Problem: Right knee DJDActive Problems: Chronic atrial fibrillation Dyspnea Essential hypertension Hypertensive heart disease without congestive heart failure Obstructive sleep apnea syndrome DM (diabetes mellitus)Resolved Problems: * No resolved hospital problems. *Surgical Procedures:Procedure(s):RIGHT ARTHROPLASTY, KNEE, TOTAL (Right)Brief Hospital Course:Patient was admitted through ambulatory unit. Patient underwent procedurewithout any complications. Postoperatively, patient had DVT prophylaxis withLovenox. Hospital course was uneventful. Patient had physical therapy while inthe hospital. Pain control was maintained with IV and oral pain medicationsinitially and transitioned to only oral when tolerating pain without any IVmedications. Once discharge criteria was met, the patient was found to be stablefor discharge. Please see discharge instructions and medications for furtherdetails.Discharge disposition: He will be discharged from [facility] to home in stable condition.Discharge Weight Bearing Status:WBATDischarge Medications:Patient was instructed to refrain from driving or operating machinery untilcleared by surgeon.Current Discharge Medication ListSTART taking these medications DetailsoxyCODONE-acetaminophen (PERCOCET) 5- 325 MG per tablet Take 0.5-1 tablets bymouth every 4 (four) hours as needed for pain Max Daily Amount: 6 tabletsQty: 40 tablet, Refills: 0CONTINUE these medications which have CHANGED Detailsapixaban (ELIQUIS) 2.5 MG TABS tablet Take 1 tablet (2.5 mg total) by mouth 2(two) times a day for 7 days May resume (home dose) Eliquis 5mg BID starting onStarting on 03/01/2021.Qty: 7 tablet, Refills: 0CONTINUE these medications which have NOT CHANGED DetailsamLODIPine (NORVASC) 5 MG tablet Take 5 mg by mouth dailyatorvastatin (LIPITOR) 20 MG tablet Take 20 mg by mouth dailybeclomethasone (QVAR) 40 MCG/ACT inhaler Inhale 2 puffs 2 (two) times a daycarvedilol (COREG) 12.5 MG tablet Take 12.5 mg by mouth 2 (two) times a dayDapagliflozin Propanediol (FARXIGA) 5 MG TABS Take 5 mg by mouth dailydigoxin (LANOXIN) 125 MCG tablet Take 125 mcg by mouth dailygabapentin (NEURONTIN) 600 MG tablet Take 600 mg by mouth 3 (three) times a daylevalbuterol (XOPENEX HFA) 45 MCG/ACT inhaler Inhale 1-2 puffs every 4 (four)hours as needed for wheezinglisinopril (PRINIVIL,ZESTRIL) 10 MG tablet Take 10 mg by mouth dailypantoprazole (PROTONIX) 40 MG tablet Take 40 mg by mouth dailyPARoxetine (PAXIL) 10 MG tablet Take 10 mg by mouth every morningsitaGLIPtin (JANUVIA) 100 MG tablet Take 100 mg by mouth nightlysodium chloride (OCEAN) 0.65 % nasal spray 1 spray into each nostril daily asneeded for congestiontamsulosin (FLOMAX) 0.4 MG CAPS Take 0.4 mg by mouth dailytraZODone (DESYREL) 50 MG tablet Take 50 mg by mouth nightlyvitamin D, Ergocalciferol, 1.25 MG (00291 UT) CAPS Take 1 capsule by mouth oncea week On MondaysTOP taking these medications acetaminophen (TYLENOL) 500 MG tabletFollow Up Instructions:An After Visit Summary was printed and given to the patient.Items needing special attention: Discharge on Eliquis 2.5mg BID for 7 days andthen resume 5mg BID.Discharge Exam:Blood Pressure: BP: 149/87 Pulse: Heart Rate: 91Temperature: Temp: 97.7 F Respirations: Resp: 18Admission Weight: Weight: 80.3 kg (177 lb) O2 Saturation: SpO2: 95 %Discharge Weight: Weight: 80.3 kg (177 lb) BMI: Body mass index is 27.31 kg/m .Physical ExamGeneral: A/O x 3, NAD.Respiratory: Breathing unlaboredOrthopedic: Right knee exam: Dressing clean, dry and intact. Sensation intactbilaterally. Strength intact bilaterally, 5/5 DF/PF bilaterally.Diagnostics:Lab ResultsComponent Value Date WBC 12.6 (H) 02/22/2021 HGB 14.1 02/22/2021 HCT 40.4 (L) 02/22/2021 MCV 88.2 02/22/2021 PLT 183 02/22/2021ab ResultsComponent Value Date INR 1.04 02/08/2021 PROTIME 10.8 02/08/2021ab ResultsComponent Value Date CREATININE 0.84 02/08/2021 BUN 19 02/08/2021 NA 141 02/08/2021 K 4.0 02/08/2021 CL 103 02/08/2021 CO2 30 02/08/2021 GLU 102 (H) 02/08/2021ignificant Imaging:noneConsults:noneSignature: Sharon Gard[phone]: February 22, 2021Time: 8:45 AM Name Value Range Interpretation Code Description Data Christel rce(s) Supporting Document(s) ID Date Data Source [id number] 02/22/2021 08:24:39 AM EDT [facility] [place] Name Value Range Interpretation Code Description Data Christel rce(s) Supporting Document(s) POC NOVA GLU 148 mg/dL (70-99) H [facility] [place] PERFORMED BY [facility] ID Date Data Source [id number] 02/22/2021 08:10:20 AM EDT [address] [address]Maehfwz Name: ZHOU DINHB: 1950ex: MOrdering Provider: LISA Chen Prov: LISA Fabian Provider: Procedure Performed: US LOWER EXTREMITY VENOUS RIGHTExam Date: 02/22/2021 08:07MRN: [id number] Number: [id number] Class: InpatientAccount #: [id number] for Exam: Right calf pain s/p right TKATechnique: Duplex sonography was performed.Comparison: NoneFindings: There is adequate compressibility and flow within the right common femoral, superficial femoral and popliteal veins. Visualized venous structures below the knee joint are patent.IMPRESSION: No evidence of right leg deep vein thrombosis. Report electronically signed by: ELI PISANO On 02/22/2021 8:10 AMWorkstation ID: [id number] Name Value Range Interpretation Code Description Data Christel rce(s) Supporting Document(s) ID Date Data Source [id number] 02/22/2021 06:50:32 AM EDT [facility] Name Value Range Interpretation Code Description Data Christel rce(s) Supporting Document(s) WBC 12.6 10*3/uL (4.1-11.0) H [facility] RBC 4.58 10*6/uL (4.60-6.10) L [facility] HGB 14.1 g/dL (13.5-18.0) [facility] HCT 40.4 % (41.0-53.0) L [facility] PERFORMED AT [address] [place] [address] [place] [address] MCV 88.2 fL (80.0-95.0) [facility] MCH 30.7 pg (27.0-32.0) [facility] MCHC 34.8 g/dL (32.0-36.0) [facility] RDW 13.0 % (10.5-14.5) [facility] PLT 183 10*3/uL (150-450) [facility] MPV 8.5 fL (7.1-10.7) [facility] ID Date Data Source [id number] 02/21/2021 06:33:52 PM EDT [facility] Name Value Range Interpretation Code Description Data Christel rce(s) Supporting Document(s) POC NOVA GLU 168 mg/dL (70-99) H [facility] [place] PERFOR[facility] ID Date Data Source [id number] 02/21/2021 02:02:44 PM EDT [facility] Name Value Range Interpretation Code Description Data Christel rce(s) Supporting Document(s) POC NOVA GLU 169 mg/dL (70-99) H [facility] [place] [facility] ID Date Data Source [id number] 02/21/2021 11:23:44 AM EDT [facility] Name Value Range Interpretation Code Description Data Christel rce(s) Supporting Document(s) POC NOVA GLU 176 mg/dL (70-99) H [facility] [place] [facility] ID Date Data Source [id number] 02/21/2021 09:47:44 AM EDT [facility] NT INFORMATIONPatient MRN Name Date of Age Gend*PT [id number] Zhou Dinh 1950 71 years M SDCXPT Location Admission Date/Time Visit ID Attending Provider --- --- --- --- EPI ID CSN Admitting Provider [id number] ---Peripheral BlockPatient location during procedure: pre-opReason for block: at surgeon's request, post-op pain management and painmanagemen tStaffingAnesthesiologist: Asael Madrigalformed: anesthesiologistPreanesthetic ChecklistCompleted: patient identified, site marked, surgical consent, pre-op evaluation,timeout performed, IV checked, risks and benefits discussed and monitors andequipment checkedPeripheral BlockPatient position: sittingPrep: DuraPrepPatient monitoring: personnel monitor, continuous pulse ox and heart rateBlock type: adductor canalLaterality: rightInjection technique: single-shotProcedures: ultrasound guidedLocal infiltration: ropivicaineInfiltration strength: 0.5 %Dose: 30 mLNeedleNeedle type: Regional needleNeedle gauge: 22 GNeedle length: 10 cmNeedle localization: ultrasound guidanceAssessmentInjection assessment: negative aspiration for heme Q 5 ml, no paresthesia oninjection, incremental injection and local visualized surrounding nerve onultrasoundParesthesia pain: none Name Value Range Interpretation Code Description Data Christel rce(s) Supporting Document(s) ID Date Data Source [id number] 02/21/2021 09:47:18 AM EDT [facility] NT INFORMATIONPatient MRN Name Date of Age Gend*PT [id number] Zhou Dinh 1950 71 years M SDCXPT Location Admission Date/Time Visit ID Attending Provider --- --- --- --- EPI ID CSN Admitting Provider [id number] ---Spinal BlockPatient location during procedure: block roomStaffingAnesthesiologist: Asael Madrigalformed: anesthesiologistPreanesthetic ChecklistCompleted: patient identified, site marked, surgical consent, pre-op evaluation,timeout performed, IV checked, risks and benefits discussed and monitors andequipment checkedSpinal BlockPatient position: sittingPrep: DuraPrepPatient monitoring: personnel monitor, continuous pulse ox, heart rate and NIBPApproach: right paramedianLocation: L3- 4NeedleNeedle type: SprotteNeedle gauge: 25 GNeedle length: 10 cmAssessmentEvents: cerebrospinal fluidParesthesia pain: none Name Value Range Interpretation Code Description Data Christel rce(s) Supporting Document(s) ID Date Data Source [id number] 02/21/2021 07:35:39 AM EDT [facility] Name Value Range Interpretation Code Description Data Christel rce(s) Supporting Document(s) POC NOVA GLU 148 mg/dL (70-99) H [facility] LIZANDRO PERFORMED BY [facility] ID Date Data Source [id number] 02/21/2021 06:28:22 AM EDT [facility] NT INFORMATIONPatient MRN Name Date of Age Gend*PT [id number] Zhou Dinh 1950 71 years M SDCXPT Location Admission Date/Time Visit ID [facility] 02/21/21 0554 --- Red Rader MD([id number]) EPI ID [facility] Admitting Provider [id number] Red Rader MD([id number])Attending Admission Note:Please refer to the H&P Completed within 30 days prior to admission for details.Update to History and Physical:I have reviewed the patients H&P, there are no significant changes in thepatients history or physical exam.Signature: PETTY Marcosate: February 21, 2021Time: 6:28 AM Name Value Range Interpretation Code Description Data Christel rce(s) Supporting Document(s) ID Date Data Source [id number] 02/16/2021 08:50:00 AM EDT [facility] Name Value Range Interpretation Code Description Data Christel rce(s) Supporting Document(s) SARS coronavirus 2 RNA Not Detected [facility] This lab was ordered by [facility] and reported by [facility]. ID Date Data Source [id number] 02/17/2021 11:18:14 AM EDT [facility] Name Value Range Interpretation Code Description Data Christel rce(s) Supporting Document(s) SARS-COV-2 PANCHITO Tequila Hernandez Not DetectedReference range: Not Detecte d This nucleic acid amplification test was developed and its performance characteristics determined by [facility]. Nucleic acid amplification tests include RT-PCR and TMA. This test has not been FDA cleared or approved. This test has been authorized by FDA under an Emergency Use Authorization (EUA). This test is only authorized for the duration of time the declaration that circumstances exist justifying the authorization of the emergency use of in vitro diagnostic tests for detection of SARS-CoV-2 virus and/or diagnosis of COVID-19 infection under section 564(b)(1) of the Act, 21 U.S.C. 360bbb-3(b) (1), unless the authorization is terminated or revoked sooner. When diagnostic testing is negative, the possibility of a false negative result should be considered in the context of a patient's recent exposures and the presence of clinical signs and symptoms consistent with COVID- 19. An individual without symptoms of COVID- 19 and who is not shedding S ARS-CoV-2 virus would expect to have a negative (not detected) result in this assay. Performed At: [facility] [address] [place], [place] [id number] Arina Genao PhD Ph:[phone] ID Date Data Source [id number] 02/09/2021 06:10:55 AM EDT [facility] Name Value Range Interpretation Code Description Data Christel rce(s) Supporting Document(s) [facility] PALNDl9pJqPGAjVql5KbWcWgSWMiRX5kyru3U5E4iHTgJ5FqpPDwu7oeC1EmH3ZbQIYuPSBNYY3OjKRo jb2 [file] 2enGF1pXn3p9jkiRIt/0nOvN+0Q/y6y5ZQ6Pw7ejRfvru7qc+Kfjg0M1Jz974wkFZoIG82yY99Uu9/Residential Building Inspector [file] bmRvYmoKeHJlZgogICAgIDAgICAgMjQKMDAwMDAwMD VqEDC7COTtVZIeFFupDEYePYZtDtZyVZWaMNWaLS9nNiVyQJTeXENuBeBhMPZsHTZlulEQMDHcLOO2Ch PtABIpRPUeHADgZCyzXDXaKGJsTQBtITP0ZHS7NQUkXoGiVBKaVLGxKAYkXBLwGYFfoxCSAXEeBPHsWC B9BSXbJAHePOZlJQgzYSQrMKRhXHlxWUGbBQEyRA3y AaUuDQYmKBEeUVjbYQWkQQVdluAAASKxOIAtBWHnBKCxWORtHFPzCGnaMWCiOJKaNKIhBLCpGPByFX9m CkTnOOWkCTK4KIBiCZKxVENojwKYPPFbVVYxKHw5PINkSKSdEDGoWUzjGVVxGLOaXAX4NORiWVOyHN3m OmVfEFKkYUJ1TqUeEBLhVEHtidQJVZTjDYVrMID3La WyUVNnMQZdQUmfINMgZNQqBUupMZSdURDiNE3rEfXvQSJsJPUrHEgnRQSuXZMsjbCHISSgQHDkQKMuFb MsIGIrSXKgYXlsTUXaEPNiEcBoVSLlSIRxLC2lFsDqJFJgWHA8MGqkUJEbFOUydvNXDYLbLUHjMXjwXY OdLJOxQBEnWMswLCAiCREdBXF8WQOeVCQlML4lOoQd YGPqOXIaDAKwPlR7JkLzSaAQoQNecMeewgj6YTobI7d5MJSoONebMV3ijyHiDKAgHdhzAo0kkMY0PLMc ZlgGYw1Ky4FcjuS6giGnNkQlEwP3XhCdHF2E ID Date Data Source [id number] 02/09/2021 02:34:05 PM EDT [facility] SPECIMEN DESCRIPTION MIDSTREAM UR INE,CLEAN CATCHCULTURE RESULTS <10,000 CFU/ML REPRESENTING URETHRAL [place]AREPORT STATUS FINAL 02/09/2021 Name Value Range Interpretation Code Description Data Christel rce(s) Supporting Document(s) ID Date Data Source [id number] 02/08/2021 06:22:25 PM EDT [facility] Name Value Range Interpretation Code Description Data Christel rce(s) Supporting Document(s) COLOR [facility] APPEARANCE [facility] SPEC GRAV URINE (1.003-1.030) [facility] PH URINE 5.5 (5.0-7.5) [facility] LEUK ESTERASE (NEG) [facility] NITRITE URINE (NEG) [facility] PROTEIN URINE (NEG) [facility] GLUCOSE URINE 3+ (NEG) A [facility] KETONE URINE (NEG) [facility] [place] UROBILINOGEN 0.2 mg/dL (0-1.0) [facility] [place] BILIRUBIN URINE (NEG) [facility] BLOOD/HGB URINE (NEG) [facility] ID Date Data Source [id number] 02/09/2021 01:50:37 PM EDT [facility] [place] Name Value Range Interpretation Code Description Data Christel rce(s) Supporting Document(s) SPECIMEN DESCRIPTION [facility] STAPH SCREEN RESULTS (ONEGSA) [facility] COMMENT [facility] GENE TO DETECT STAPH AUREUS. (2) RT-P CR WAS PERFORMED FOR THE mecA AND SCCmec GENES TO DETECT METHICILLIN RESISTANCE IN STAPH AUREUS. ID Date Data Source [id number] 02/08/2021 08:36:05 PM EDT [facility] Name Value Range Interpretation Code Description Data Christel rce(s) Supporting Document(s) HEMOGLOBIN A1C @ 6.1 % (4.0-6.0) H [facility] Performed using Siemens Galena immunoassa y.Care must be taken when interpreting TeA1rpvczrhb in patients with a hemoglobin variantor decreased erythrocyte lifespan. Values 5.7 - 6.4% suggest prediabetes.Values >=6.5% are diagnostic for diabetes.REFERENCE: DIABETES CARE 2018: 41(S13-S27). EST AVERAGE GLUCOSE 128 mg/dL [facility] ID Date Data Source [id number] 02/08/2021 08:08:08 PM EDT [facility] IMANI SPEC EXP DATE 1PATI ENT ABO/Rh O POSITIVEANTIBODY SCREEN NEGATIVETESTING SITE PERFORMED AT [address] [place] [address] Name Value Range Interpretation Code Description Data Christel rce(s) Supporting Document(s) TYPE AND SCREEN [facility] ID Date Data Source [id number] 02/08/2021 07:03:08 PM EDT [facility] Name Value Range Interpretation Code Description Data Christel rce(s) Supporting Document(s) SODIUM 141 mmol/L (136-145) [facility] POTASSIUM 4.0 mmol/L (3.6-5.2) [facility] CHLORIDE 103 mmol/L (100-108) [facility] CO2 30 mmol/L (22-31) [facility] ANION GAP 8 mmol/L (7-16) [facility] UREA NITROGEN 19 mg/dL (7-24) [facility] CREATININE 0.84 mg/dL (0.80-1.30) [facility] BUN/CREAT RATIO 22.6 RATIO (10.0-20.0) H [facility] GLUCOSE 102 mg/dL (70-99) H [facility] CALCIUM 9.1 mg/dL (8.4-10.2) [facility] TOTAL PROTEIN 6.8 g/dL (6.4-8.2) [facility] ALBUMIN 3.9 g/dL (3.2-4.5) [facility] GLOBULIN 2.9 g/dL (2.7-4.3) [facility] ALB/GLOB RATIO 1.3 RATIO [facility] ALKALINE PHOSPHATASE 79 U/L (45-117) [facility] BILIRUBIN,TOTAL 0.9 mg/dL (0.0-1.0) [facility] PLEASE NOTE:Total bilirubin results may be falselyelevated in patients taking Eltrombopag. AST (SGOT) 16 U/L (11-39) [facility] ALT (SGPT) 22 U/L (12-78) [facility] GFR >60 ml/min/1.73m2 (>59) [facility] GFR ( AMER) >60 ml/min/1.73m2 (>59) [facility] GFR INTERPRETATION [facility] --NORMAL KIDNEY FUNCTION OR MILD DISEASE - GFR >OR= 60CHRONIC KIDNEY DISEASE - GFR 15 - 59RENAL FAILURE - GFR <15 Est. GFR calculation based on the MDRDstudy equation, which assumes a steadystate for creatinine. Est. GFR should notbe used for medication dosing. ID Date Data Source [id number] 02/08/2021 06:13:32 PM EDT [facility] Name Value Range Interpretation Code Description Data Christel rce(s) Supporting Document(s) APTT 28.8 s (22.0-34.3) [facility] ID Date Data Source [id number] 02/08/2021 06:13:32 PM EDT [facility] Name Value Range Interpretation Code Description Data Christel rce(s) Supporting Document(s) PT 10.8 s (9.2-11.9) [facility] INR 1.04 [facility] SUGGESTED THERAPEUTIC RANGES USING INR F ORSTABILIZED ANTICOAGULATED PATIENTS:STANDARD DOSE THERAPY INR 2.0-3.0 DVT, PE, PREVENT DVT OR EMBOLISMHIGH DOSE THERAPY INR 2.5-3.5 PREVENT EMBOLISM FROM MECHANICAL HEART VALVE ID Date Data Source [id number] 02/08/2021 05:55:33 PM EDT [facility] Name Value Range Interpretation Code Description Data Christel rce(s) Supporting Document(s) WBC 8.3 10*3/uL (4.1-11.0) [facility] RBC 5.15 10*6/uL (4.60-6.10) [facility] HGB 15.7 g/dL (13.5-18.0) [facility] HCT 45.7 % (41.0-53.0) [facility] MCV 88.7 fL (80.0-95.0) [facility] MCH 30.5 pg (27.0-32.0) [facility] MCHC 34.4 g/dL (32.0-36.0) [facility] RDW 13.2 % (10.5-14.5) [facility] PLT 215 10*3/uL (150-450) [facility] MPV 8.8 fL (7.1-10.7) [facility] ID Date Data Source [id number] 02/08/2021 02:06:36 PM EDT [facility] INFORMATIONPatient MRN Name Date of Age Gend*PT [id number] Zhou Dinh 1950 70 years M OPPT Location Admission Date/Time Visit ID Attending Provider --- --- --- Red Rader MD([id number]) EPI ID CSN Admitting Provider [id number] ---OUTPATIENT / OBSERVATIONAL SURGICAL OR INVASIVE PROCEDUREName: Zhou Dinh : 1950 Sex: male Care Provider: No primary care provider on file.Attending Physician: Dr. Gil Rader.HISTORY OF PRESENT ILLNESS: Mr. Dinh is a 70 years old white malehypertension, hyperlipidemia, diabetes, depression, anxiety, atrialfibrillation, sleep apnea, and COPD who reports of 1 year history of right kneepain. Pain is mostly localized to the knee. It is aggravated with walking,stairs, bending and other exertional activities. He underwent cortisoneinjection in the past which helped minimal. Patient denies any known history ofinjury. However, he reports of many years history of nimco. X-ray of theright knee indicated [id number]. Subsequently patient was referred to Dr.Seth Wayne for surgical evaluation. Options were discussed. He now haselected to undergo surgical interventionPAST MEDICAL HISTORY:Past Medical History:Diagnosis Date Anxiety Atrial fibrillation Dr. Cardona BPH (benign prostatic hyperplasia) COPD (chronic obstructive pulmonary disease) Depression Diabetes mellitus GERD (gastroesophageal reflux disease) Hyperlipidemia Hypertension Primary osteoarthritis of right knee Sleep apnea dose not use CPAPPAST SURGICAL HISTORY:Past Surgical History:Procedure Laterality Date CARDIAC ELECTROPHYSIOLOGY MAPPING AND ABLATION CATARACT EXTRACTION EXTRACAPSULAR W/ INTRAOCULAR LENS IMPLANTATION Bilateral COLONOSCOPY GANGLION CYST EXCISION KNEE ARTHROSCOPY Right PANENDOSCOPY RETINAL DETACHMENT SURGERY LeftALLERGIES: No Known Drug AllergiesMEDICATIONS:Prior to Admission medicationsMedication Sig Start Date End Date Taking? Authorizing Provideracetaminophen (TYLENOL) 500 MG tablet Take 500 mg by mouth daily as needed forpain Historical Provider, Jose DavidmLODIPine (NORVASC) 5 MG tablet Take 5 mg by mouth daily HistoricalProvider, MDApixaban (ELIQUIS) 5 MG TABS tablet Take 5 mg by mouth 2 (two) times a dayHistorical Provider, Jose Davidtorvastatin (LIPITOR) 20 MG tablet Take 20 mg by mouth daily HistoricalProvider, beclomethasone (QVAR) 40 MCG/ACT inhaler Inhale 2 puffs 2 (two) times a dayHistorical Provider, Lisaarvedilol (COREG) 12.5 MG tablet Take 12.5 mg by mouth 2 (two) times a dayHistorical Provider, PETTYapagliflozin Propanediol (FARXIGA) 5 MG TABS Take 5 mg by mouth dailyHistorical Provider, Pettyigoxin (LANOXIN) 125 MCG tablet Take 125 mcg by mouth daily HistoricalProvider, gabapentin (NEURONTIN) 600 MG tablet Take 600 mg by mouth 3 (three) times a dayHistorical Provider, levalbuterol (XOPENEX HFA) 45 MCG/ACT inhaler Inhale 1-2 puffs every 4 (four)hours as needed for wheezing Historical Provider, lisinopril (PRINIVIL,ZESTRIL) 10 MG tablet Take 10 mg by mouth dailyHistorical Provider, Monicaantoprazole (PROTONIX) 40 MG tablet Take 40 mg by mouth daily HistoricalProvider, MONICAARoxetine (PAXIL) 10 MG tablet Take 10 mg by mouth every morning HistoricalProvider, MiltonitaGLIPtin (JANUVIA) 100 MG tablet Take 100 mg by mouth nightly HistoricalProvider, Miltonodium chloride (OCEAN) 0.65 % nasal spray 1 spray into each nostril daily asneeded for congestion Historical Provider, tamsulosin (FLOMAX) 0.4 MG CAPS Take 0.4 mg by mouth daily HistoricalProvider, traZODone (DESYREL) 50 MG tablet Take 50 mg by mouth nightly HistoricalProvider, vitamin D, Ergocalciferol, 1.25 MG ([id number] UT) CAPS Take 1 capsule by mouth oncea week On Thursday Historical Provider, MILTONocial HistoryTobacco Use Smoking status: Former Smoker Packs/day: 1.00 Years: 15.00 Pack years: 15.00 Types: Cigarettes Last attempt to quit: 1989 Years since quittin.2 Smokeless tobacco: Never UsedSubstance Use Topics Alcohol use: Not Currently Drug use: NeverFamily HistoryProblem Relation Age of Onset Coronary artery disease Mother Diabetes type II Mother Diabetes type II Father Malig Hyperthermia Neg HxREVIEW OF SYSTEMS:Respiratory: Denies any shortness of breath, cough, yellow sputum production orwheezing.Cardiovascular: Denies any chest pain, pressure or tightness. Denies anyparoxysmal nocturnal dyspnea or orthopnea.GI: Denies nausea, vomiting, diarrhea, constipation or melena.Neurologic: Denies any numbness, tingling, tremors or syncope.Vascular: Denies any edema. Denies claudication.PHYSICAL EXAM:GENERAL: He is a 70 years old, pleasant white male, in no acute distress at timeof examination. Vitals on arrival to the office are BP 119/74 (BP Location:Right upper arm, Patient Position: Sitting) | Pulse 79 | Ht 1.715 m (5' 7.5")| Wt 80.6 kg (177 lb 12.8 oz) | SpO2 94% | BMI 27.44 kg/m Body mass index is27.44 kg/m ..Skin is pink, warm, and dry.NECK: He has a grade II airway. Neck is supple, midline, without cervicaladenopathy. No thyromegaly. No carotid bruits.MENTAL / NEUROLOGICAL STATUS: [id number]: Clear to auscultation. No wheezes, rhonchi or crackles.HEART: Rate rhythm irregularly irregular. No murmur, rub or gallop.ABDOMEN: Bowel sounds positive times four. Soft, non tender. No reboundtenderness. No hepatosplenomegaly. Negative CVAT.EXTREMITIES: Pulses are symmetrical. NO edema.OPERATIVE SITE: Clean dry and intact..Anesthesia complications: DeniesCSHA Frailty Scale :: 4/10 Vulnerable (while not dependent on others for dailyhelp, often symptoms limit activities. A common complaint is being "slowed up",and /or being tired during the day).Stop Bang Questionnaire - Total Score: Diagnosed sleep apneaASSESSMENT: Primary Diagnosis/Indication: Primary osteoarthritis of right knee.PLAN: Procedure: Mr. Ellis is a 70-year-old male with a history of rightknee pain. He now has elected to undergo RIGHT ARTHROPLASTY, KNEE, TOTAL on02/21/21Patient was recently evaluated by telesales advisor for preop stratification.(Dr.Willis Tavarez)02/08/2021 2:06 Juice Rivers document or parts of this document, were dictated using PakSense software. A reasonable attempt at proofreading has beenmade to minimize errors. Please call with any questions or corrections.* Name Value Range Interpretation Code Description Data Christel rce(s) Supporting Document(s) ID Date Data Source [id number] 02/13/2021 12:45:55 PM EDT [facility] PCName: Zhou DinhB: 2Provider: Angela Rader: 02/08/2021 Reason For Visit<OBX.5.1><OBX.5.1.1>Zhou Dinh is here today for H</OBX.5.1.1><O BX.5.1.2>P Right Knee TKA. Zhou Dinh is here for a history and physical. </OBX.5.1.2></OBX.5.1>Surgery Description: Replacement of Right Knee.. Expected DOS: 02-21-21. 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 He lives in the [place] area. He has had multiple knee injuries, which he just sucked up and dealt with. He had a scope in the past, performed by Dr. Benson. He had steroid injections and medicines. We are planning on operative intervention.PAST MEDICAL HISTORY:Please see intake. Asthma, atrial fibrillation (on Eliquis), diabetes, herpes Zoster. hyperlipidemia, hypertension and sleep apnea.PHYSICAL EXAMINATION:He is 5'7 and weighs 178 pounds. He is alert, awake and oriented, with appropriate mood and affect. Lower extremities have no edema. Sensory and motor are intact. Pulses are fine. Examination of the right knee: Motion is quite good, from 0 to about 115-to-120 degrees, with varus deformity of 9 or 10 degrees. 2+ medial laxity. Hip moves normally.X-RAYS:Standing AP, lateral and Merchant's views of the right knee were ordered, taken and interpreted by me today. They show severe tricompartmental arthritis with dycz-me-kkqr disease medially, lateral subluxation of the tibia, and osteophytes in the femur and tibia.IMPRESSION:Posttraumatic osteoarthritis of right knee, for right total knee replacement The patient and his looked at the video. They had no specific questions. We talked about the spinal, when to stop the Eliquis and the importance of physical therapy. I suggested an ice machine. We talked about risks, including, but not limited to,remote chance of infection, blood clot, stiffness and loosening, .etc. He read and signed the permit. I will see him there. I asked the patient, after viewing the video, about any further questions or concerns. The patient verbalized full understanding of the potential risks, benefits, and alternative to the proposed procedure. The patients questions about right total knee replacement ere reviewed with me and answers provided. Plan X-Ray I Knee - 3 views (XRays were ordered, obtained and interpreted today in theoffice. Indication: pain/dysfunction.); Status:Complete; Done: 08Feb2021 Perform:SOS11; Due:22Feb2021; Last Updated By:Larry Navarrete; 02/08/2021 11:24:54 AM;Ordered; For:Right knee pain; Ordered By:Red Rader;Weight Bearing Status : Weight bearingLaterality: : Right Signatures Electronically signed by : Edelmira Altman, ; Feb 08 2021 11:54AM EST Electronically signed by : Red Rader M.D.; Feb 13 2021 12:45PM EST Name Value Range Interpretation Code Description Data Christel rce(s) Supporting Document(s) ID Date Data Source [id number] 02/06/2021 12:05:00 PM EDT [facility] ([facility]) Name Value Range Interpretation Code Description Data Christel rce(s) Supporting Document(s) Laboratory test finding (navigational concept) Laboratory test result [facility] ([facility]) A) No further treatment B) No further tr eatment Laboratory test finding (navigational concept) Laboratory test result [facility] ([facility][1]) A) No further treatment B) No further tr eatment ID Date Data Source [id number] 01/29/2021 12:33:55 PM EST [facility] PCName: Zhou MartellB: 2Provider: Angela Rader: 01/29/2021 Reason For VisitSOS Patient Intake: Zhou Dinh is here today for 2nd Opinion Right Knee. Zhou Dinh is here for a second opinion. Knee was scoped in the past, c/o pain swelling and start up stiffness, uses Tylenol regularly, no assistive devices, pain scale of 5-6 out of 10 most days but gets higher when ambulating. SOS Occupation and Work Status: Patient is retired. 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 He has a history of multiple knee injuries, which he just sucked up and dealt with. He had a knee scope in the past, done by Dr. Benson. He was evaluated in the [place] area. He had steroid injections and medications. He had therapy and has done exercises, .etc. He is at a point where he's ready to proceed with intervention. PAST MEDICAL HISTORY:Please see intake. Asthma, atrial fibrillation (on Eliquis), type 2 diabetes, history of herpes Zoster, hyperlipidemia, hypertension and sleep apnea (uses CPAP).PHYSICAL EXAMINATION:He is 5'7 and weighs 178 pounds. He is alert, awake and oriented, with appropriate mood and affect. Lower extremities have no edema or varicosities. Sensory and motor are intact. Pulses are fine. Examination of the right knee: The knee does not have an effusion. Motion is from 0 to about 120, with varus alignment of 8 or 9 degrees. He has 1 to 2+ medial laxity. Hip moves nicely. Skin is fine. X-RAYS:X-rays were imported and reviewed. They show severe tricompartmental arthritis with ntvq-ai-cicg disease medially. There is lateral subluxation of the tibia and tricompartmental involvement.IMPRESSION:End-stage posttraumatic osteoarthritis of the right knee. He's ready to proceed with intervention. Obviously, he needs clearances. He will stop the Eliquis before surgery. We will give him all of the information today. We will schedule it. I will see him one more time before we do the operation. Signatures Electronically signed by : Edelmira Altman, ; Jan 29 2021 10:25AM EST Electronically signed by : Red Rader M.D.; Jan 29 2021 12:33PM EST Name Value Range Interpretation Code Description Data Christel yennifer(s) Supporting Document(s) ID Date Data Source [id number] 01/04/2021 03:39:00 PM EST [facility] ([facility] Name Value Range Interpretation Code Description Data Christel rce(s) Supporting Document(s) Cholesterol 195 120-200 [facility] ([facility]) Triglycerides 215 [facility] ([facility]) HDL 50 40-60 [facility] Cholesterol in LDL [Mass/volume] in Serum or Plasma by calculation 10 2 [facility] ([facility]) Chol/HDL Ratio 3.900 [facility] ([facility]) ID Date Data Source [id number] 01/04/2021 03:39:00 PM EST [facility] Name Value Range Interpretation Code Description Data Christel rce(s) Supporting Document(s) Hemoglobin A1c/Hemoglobin.total in Blood 6.4 [facility] ([facility]) ID Date Data Source [id number] 01/04/2021 03:39:00 PM EST [facility] Name Value Range Interpretation Code Description Data Christel rce(s) Supporting Document(s) Albumin [Mass/volume] in Serum or Plasma 4.0 [facility] ([facility]) Calcium [Mass/volume] in Serum or Plasma 8.8 [facility] ([facility]) Alanine aminotransferase [Enzymatic activity/volume] in Serum or Pl asma 23 [facility] ([facility]) Carbon dioxide, total [Moles/volume] in Serum or Plasma 29 [facility]) Chloride [Moles/volume] in Serum or Plasma 103 [facility]) Alkaline phosphatase [Enzymatic activity/volume] in Serum or Plasma 7 2 [facility] ([facility]) Potassium [Moles/volume] in Serum or Plasma 4.6 [facility] ([facility]) Protein [Mass/volume] in Serum or Plasma 7.0 [facility] ([facility]) Sodium 140 [facility] Aspartate aminotransferase [Enzymatic activity/volume] in Serum or Plasma 16 [facility] ([facility]) Urea nitrogen [Mass/volume] in Serum or Plasma 21 [facility]) Glucose 120 70-100 [facility] Creatinine For GFR 0.95 [facility] ([facility]) ID Date Data Source [id number] 01/04/2021 03:39:00 PM EST [facility] ([facility] Name Value Range Interpretation Code Description Data Christel e(s) Supporting Document(s) White Blood Count 7.8 4.0-10.0 [facility] ([facility]) Red Blood Count 5.35 4.30-6.10 [facility] ([facility]) Platelets 208 150-450 [facility] Hemoglobin 16.1 13.5-17.5 [facility] ([facility]) Hematocrit 47.0 42.0-52.0 [facility] ([facility]) ID Date Data Source [id number] 01/04/2021 01:46:00 PM EST [facility] ([facility] Name Value Range Interpretation Code Description [facility]) Prostate specific Ag [Mass/volume] in Serum or Plasma 2.88 ng/mL [facility] ([facility] The PSA assay is performed on the [employer] analyzer by [employer] sandwich chemiluminescent immunoassay and should not be compared interchangeably with other methods. It should not be used alone as a screening test or diagnosis for the presence or absence of malignant disease. Predictions of disease recurrence should not be based solely on values obtained from serial patient serum values. ID Date Data Source [id number] 01/04/2021 01:46:00 PM EST [facility] ([facility] Name Value Range Interpretation Code Description Data [facility] Supporting Document(s) HDL Cholesterol 50 mg/dL [facility] ([facility] Cholesterol Level 195 mg/dL [facility] ([facility] Triglycerides Level 215 mg/dL [facility] ([facility] LDL Cholesterol 102 mg/dL [facility] ([facility] Non-HDL-C 145 mg/dL [facility] Cholesterol Risk Ratio 3.900 [facility] ID Date Data Source [id number] 01/04/2021 01:46:00 PM EST [facility] ([facility] Name Value Range Interpretation Code Description Data Christel rce(s) Supporting Document(s) Estimated Average Glucose 137 mg/dL 60-110 [facility] ([facility] Hemoglobin A1c/Hemoglobin.total in Blood 6.4 % [facility] <content>REFERENCE RANGES:</content><br/ ><content></content>
<content><=5.6% NORMAL</content>
<content>5.7-6.4% SUGGESTS IMPAIRED GLUCOSE METABOLISM/PREDIABETIC</content>
<content>>= 6.5% ABNORMAL</content>
<content></content> ID Date Data Source [id number] 01/04/2021 01:46:00 PM EST [facility] ([facility] Name Value Range Interpretation Code Description Data Christel rce(s) Supporting Document(s) Glucose, Fasting 120 mg/dL 70-100 [facility] ([facility] Blood Urea Nitrogen 21 mg/dL 7-18 [facility] Creatinine For GFR 0.95 mg/dL 0.70-1.30 [facility] ([facility] Glomerular Filtration Rate Laboratory test result [facility] ([facility] <content>Units are mL/min/1.73 m2</content>
<content></content>
<content>Chronic Kidney Disease Staging per NKF:</content>
<content></content>
<content>Stage I & II GFR >=60 Normal to Mildly Decreased</content>
<content>Stage III GFR 30- 59 Moderately Decreased</content>
<content>Stage IV GFR 15-29 Severely Decreased</content>
<content>Stage V GFR <15 Very Little GFR Left</content>
<content>ESRD GFR <15 on SCIENTIFIC PUBLICATIONS EDITOR</content>
<content></content> Sodium Level 140 meq/L 136-145 [facility] ([facility] Potassium Serum 4.6 meq/L 3.5-5.1 [facility] ([facility] Carbon Dioxide Level 29 meq/L 21-32 [facility] ([facility] Chloride Level 103 meq/L 98-107 [facility] ([facility] Ast/Sgot 16 U/L 7-37 [facility] Anion Gap 8 meq/L 8-16 [facility] Calcium Level 8.8 mg/dL 8.8-10.2 [facility] Alt/SGPT 23 U/L 12-78 [facility] Alkaline Phosphatase 72 U/L 45-117 [facility] Total Protein 7.0 GM/DL 6.4-8.2 [facility] Albumin 4.0 GM/DL 3.2-5.2 [facility] Bilirubin,Total 1.0 mg/dL 0.2-1.0 [facility] ([facility] Albumin/Globulin Ratio 1.3 [facility] ([facility] ID Date Data Source [id number] 01/04/2021 01:46:00 PM EST [facility] ([facility] Name Value Range Interpretation Code Description Data Christel rce(s) Supporting Document(s) Prothrombin Time 14.1 s 12.5-14.3 [facility] ([facility] Inr 1.07 [facility] ([facility] THERAPUTIC HUMAN INR VALUES INDICATIONS NORMAL RANGES PROPHYLAXIS/TREATMENT OF: VENOUS THROMBOSIS 2.0-3.0 PULMONARY EMBOLISM 2.0-3.0 PREVENTION OF SYSTEMIC EMBOLISM FROM: TISSUE HEART VALVES 2.0-3.0 ACUTE MYOCARDIAL INFARCTION 2.0-3.0 VALVULAR HEART DISEASE 2.0-3.0 ATRIAL FIBRILLATION 2.0-3.0 MECHANICAL VALVES(HIGH RISK) 2.5-3.5 RECURRENT MYOCARDIAL INFARCTION 2.5-3.5 Partial Thromboplastin Time 36.0 s 24.2-38.5 [facility] ([facility] ID Date Data Source [id number] 01/04/2021 01:46:00 PM EST [facility] ([facility] Name Value Range Interpretation Code Description Data Christel e(s) Supporting Document(s) Bacteria identified in Urine by Culture Laboratory test result [facility] ([facility] FULL REPORT IN LAB NOTES ([facility] and [facility] ). NO GROWTH ID Date Data Source [id number] 01/04/2021 01:46:00 PM EST [facility] ([facility] Name Value Range Interpretation Code Description Data [facility](s) Supporting Document(s) Color, Urine Laboratory test result [facility] Appearance, Urine Laboratory test result [facility] Specific [place] Urine Auto 1.031 1.002-1.035 [facility] PH,Urine 5.0 units 5.0-9.0 [facility] ([facility] Protein, Urine Auto Laboratory test result [facility] ([facility] Ketone, Urine Auto Laboratory test result [facility] ([facility] Glucose, Urine (Ua) Auto Laboratory test result [facility] ([facility] Urobilinogen, Urine Auto 0.2 mg/dL 0.0-2.0 [facility] ([facility] Nitrite, Urine Auto Laboratory test result [facility] ([facility] Bilirubin, Urine Auto Laboratory test result [facility] ([facility] Blood, Urine Blood Laboratory test result [facility] ([facility] Leukocyte Esterase, Urine Auto Laboratory test result [facility] ([facility] RBC, Urine Auto 0 /HPF 0-3 [facility] WBC, Urine Auto 0 /HPF 0-3 [facility] Bacteria, Urine Auto Laboratory test result [facility] Squamous Epithelial Cell Ur AU 0 /HPF 0-6 [facility] Mucus, Urine Laboratory test result [facility] ([facility] Hyaline Cast, Urine Auto 0 /LPF 0-1 [facility] ([facility] ID Date Data Source [id number] 01/04/2021 01:46:00 PM EST [facility] ([facility] Name Value Range Interpretation Code Description Data Christel rce(s) Supporting Document(s) Red Blood Count 5.35 10 4.30-6.10 [facility] ([facility] White Blood Count 7.8 10 4.0-10.0 [facility] ([facility] Hemoglobin 16.1 g/dL 13.5-17.5 [facility] ([facility] Mean Corpuscular Volume 87.9 fl 80.0-96.0 M [facility] ([facility] Hematocrit 47.0 % 42.0-52.0 [facility] Mean Corpuscular Hemoglobin 30.1 pg 27.0-33.0 [facility] Mean Corpuscular HGB Conc 34.3 g/dL 32.0-36.5 [facility] Red Cell Distribution Width 12.8 % 11.5-14.5 [facility] ([facility] Platelet Count, Automated 208 10 150-450 [facility] Neutrophils % 67.5 % 36.0-66.0 [facility] ([facility] [place] % 7.7 % 2.0-8.0 [facility] ([facility] Lymph % 22.7 % 24.0-44.0 [facility] ([facility] Eos % 0.9 % 0.0-3.0 [facility] ([facility] Baso % 0.4 % 0.0-1.0 [facility] ([facility] Nucleated Red Blood Cell % 0.0 % 0-0 MED ENT ([facility] Immature Granulocyte % 0.8 % 0-3.0 [facility] ([facility] Lymph # 1.8 10 1.5-5.0 [facility] ([facility] Neutrophils # 5.2 10 1.5-8.5 [facility] ([facility] Kent # 0.6 10 0.0-0.8 [facility] ([facility] Eos # 0.1 10 0.0-0.5 [facility] ([facility] Baso # 0.0 10 0.0-0.2 [facility] ([facility] ID Date Data Source [id number] 01/03/2021 12:00:00 AM EST [facility] Damien Perez Patient Name: [id number] [id number] Date of : 1950[place] [address] Date of Exam: 01/03/2021#: Fax: [phone] EXAM: CHEST (2 VIEW) X-RAYCLINICAL INFORMATION: Preop.Two views. These images were obtained using digital radiography.Comparison 01/01/2016.There is no acute infiltrate. Lungs are clear and unchanged. The heart isnot significantly enlarged. The mediastinal silhouette is unchanged.There is curvature of the upper thoracic spine convex to the left and lowerthoracic spine convex to the right. There are mild diffuse degenerativechanges of the spine with straightening of the normal thoracic kyphosis.IMPRESSION:No acute pulmonary disease.PURA Garcia/Patti you for referring ZHOU DINH to our office. Electronically Signed - JUAN FRANZ MD 01/03/21 18:04 Name Value Range Interpretation Code Description Data Christel rce(s) Supporting Document(s) ID Date Data Source [id number] 12/13/2020 11:26:00 AM EST [facility] ([facility]) Name Value Range Interpretation Code Description Data Christel rce(s) Supporting Document(s) Laboratory test finding (navigational concept) Laboratory test result [facility] ([facility]) ID Date Data Source [id number] 10/26/2020 12:00:00 AM EST [facility] Desi SWENSON Patient Name: ZHOU [id number] [facility] Date of : 1950[place] [address] Date of Exam: 10/26/2020#: Fax: [phone] EXAM: MRI SHOULDER RIGHT W/O CONTRASTCLINICAL INFORMATION: Chronic pain.3T multiplanar MRI imaging of the right shoulder was obtained using varioussequences.There are no prior right shoulder MRI's for comparison.There is duybgzmg-ay-[id number] hypertrophic degenerative change seen involvingthe acromioclavicular joint. There is fluid within the AC joint. Acromionprocess is Type I with a spur arising from the inferior surface of theacromion process at the AC joint. Patchy and linear T2 hypersignal is seenin the supraspinatus tendon without evidence of musculotendinous retractionor significant atrophy. Patchy T2 hypersignal is seen mildly in thesubscapularis and infraspinatus tendons. There is a small amount of fluidin the region of the subdeltoid bursa. There is mild coracohumeralligamentous thickening without shandra coracoacromial ligamentous thickening. There is linear hypersignal change seen in what appears to be a truncatedsuperior labrum anteriorly. The biceps tendon resides within the bicipitalgroove. There is a slight glenohumeral joint effusion. There is fluid inthe subcoracoid recess which is mild. There is some motion artifactobscuring some of the fine detail.IMPRESSION:1. AC joint DJD with acromion process and fluid within the AC joint asdescribed above.2. There is supraspinatus tendinitis/tendinosis.3. There are some labral signal changes which are suspicious for a labraltear. This could be confirmed with shoulder MRI arthrography.4. Other findings as described above. There is a small amount of fluid inthe subdeltoid bursa. Subdeltoid bursitis cannot be ruled out.Accredited by the [employer] in MR.JAMIA Smith/Patti you for referring ZHOU DINH to our office. Electronically Signed - SHIRA WOO DO 11/07/20 13:07 Name Value Range Interpretation Code Description Data Christel rce(s) Supporting Document(s) Procedure Social History Code Duration Value Status Description Data Source(s ) Smoking 09/12/2021 12:00:00 AM EDT Patient is a former smoker completed Patient is a former smoker LELA ([facility] Smoking 07/23/2021 09:05:16 PM EDT Ex-smoker (finding) [facility] ed Ex-smoker (finding) MARY KAY (Abiodun Moore [facility]) Smoking 07/01/2021 12:00:00 AM EDT - 11/23/1995 12:00:00 AM EST Patient is a former smoker completed Patient is a former smoker LELA ([facility], ) Smoking 06/21/2021 12:00:00 AM EDT Patient is a former smoker completed Patient is a former smoker [facility] ([facility]) Alcohol intake 02/22/2021 12:00:00 AM EDT Not Currently completed [facility] Cigarette pack-years 02/22/2021 12:00:00 AM EDT UNK completed [facility] Cigarettes smoked current (pack per day) - Reported 02/23/20 12:00:00 AM EDT UNK completed [facility] Smoking 02/22/2021 12:00:00 AM EDT Former smoker completed Former smoker [facility] Alcohol intake 02/08/2021 12:00:00 AM EDT Not Currently completed [facility] Cigarette pack-years 02/08/2021 12:00:00 AM EDT UNK completed [facility] Cigarettes smoked current (pack per day) - Reported 02/09/20 12:00:00 AM EDT UNK completed [facility] Smoking 02/08/2021 12:00:00 AM EDT Former smoker completed Former smoker [facility] Smoking 08/15/2020 12:23:46 PM EDT Ex-smoker (finding) complet ed Ex-smoker (finding) MARY KAY (Abiodun Moore MD [facility]) Vital Signs ID Date Data Source UNK Name Value Range Interpretation Code Description Data Source(s) Body temperature 97.3 [degF] 97.3 [degF] [facility] ([facility] Body height 67 [in_i] 67 [in_i] [facility] ([facility] 5'7" Body weight 178.00 [lb_av] 178.00 [lb_av] MEDEN T ([facility]) Systolic blood pressure 133 mm[Hg] 133 mm[Hg] M EDENT ([facility]) Diastolic blood pressure 75 mm[Hg] 75 mm[Hg] [facility] ([facility]) Heart rate 85 /min 85 /min [facility]) Body mass index (BMI) [Ratio] 27.9 kg/m2 27.9 k g/m2 [facility] ([facility]) Body weight 80.741 kg 80.741 kg [facility] ([facility]) Body temperature 97.3 [degF] 97.3 [degF] [facility] ([facility]) Body weight 178 [lb_av] 178 [lb_av] eCW1 ([facility]) Body weight 80.74 kg 80.74 kg eCW1 ([facility]) Body height [in_i] eCW1 ([facility]) Body mass index (BMI) [Ratio] 27.88 kg/m2 27.88 kg/m2 eCW1 ([facility]) Heart rate 96 /min 96 /min eCW1 ([facility]) Respiratory rate 18 /min 18 /min eCW1 ([facility]) Body temperature 97.1 [degF] 97.1 [degF] eCW1 ( [facility]) Systolic blood pressure 122 mm[Hg] 122 mm[Hg] e CW1 ([facility]) Diastolic blood pressure 78 mm[Hg] 78 mm[Hg] eCW1 ([facility]) Body surface area Derived from formula 1.92 m2 1.92 m2 [facility], ) Body weight 177.00 [lb_av] 177.00 [lb_av] MEDEN T ([facility], ) Body mass index (BMI) [Ratio] 27.7 kg/m2 27.7 k g/m2 [facility] ([facility], ) [place] body weight 148 [lb_av] 148 [lb_av] MEDEN T ([facility], ) Systolic blood pressure 118 mm[Hg] 118 mm[Hg] M EDENT ([facility], ) Diastolic blood pressure 70 mm[Hg] 70 mm[Hg] [facility] ([facility], ) Heart rate 92 /min 92 /min [facility] ([facility], ) Oxygen saturation in Arterial blood by Pulse oximetry 98 % 98 % [facility] ([facility], ) Room Air Body height 67 [in_i] 67 [in_i] [facility] ([facility], ) 5'7" Body weight 80.287 kg 80.287 kg [facility] ([facility], ) Systolic blood pressure 130 mm[Hg] 130 mm[Hg] M EDENT ([facility]) Diastolic blood pressure 72 mm[Hg] 72 mm[Hg] [facility] ([facility]) Body weight 175.00 [lb_av] 175.00 [lb_av] MEDEN T ([facility]) Respiratory rate 17 /min 17 /min MED[facility] ( [facility]) Body weight 177.00 [lb_av] 177.00 [lb_av] MEDEN T ([facility]) Body height 67 [in_i] 67 [in_i] [facility] ([facility]) 5'7" Body mass index (BMI) [Ratio] 27.7 kg/m2 27.7 k g/m2 [facility] ([facility]) Heart rate 88 /min 88 /min [facility] ([facility]) Irregular Respiratory rate 16 /min 16 /min [facility] ( [facility]) Systolic blood pressure 126 mm[Hg] 126 mm[Hg] M EDENT ([facility]) sitting, regular cuff Diastolic blood pressure 76 mm[Hg] 76 mm[Hg] [facility] ([facility]) sitting, regular cuff Systolic blood pressure 126 mm[Hg] 126 mm[Hg] M EDENT ([facility]) sitting Diastolic blood pressure 72 mm[Hg] 72 mm[Hg] [facility] ([facility]) sitting Body height [in_i] eCW1 ([facility]) Body weight 175 [lb_av] 175 [lb_av] eCW1 ([facility]) Body mass index (BMI) [Ratio] 27.41 kg/m2 27.41 kg/m2 eCW1 ([facility]) Heart rate 103 /min 103 /min eCW1 ([facility]) Respiratory rate 19 /min 19 /min eCW1 ([facility]) Systolic blood pressure 148 mm[Hg] 148 mm[Hg] e CW1 ([facility]) Diastolic blood pressure 87 mm[Hg] 87 mm[Hg] eCW1 ([facility]) Diastolic blood pressure 88 mm[Hg] 88 mm[Hg] [facility] ([facility] Systolic blood pressure 141 mm[Hg] 141 mm[Hg] M EDENT ([facility] Diastolic blood pressure 84 mm[Hg] 84 mm[Hg] [facility] ([facility] Systolic blood pressure 119 mm[Hg] 119 mm[Hg] M EDENT ([facility] Body height 68 [in_i] 68 [in_i] [facility] ([facility] 5'8" Body weight 178.38 [lb_av] 178.38 [lb_av] MEDEN T ([facility] Heart rate 94 /min 94 /min [facility] ([facility] Body temperature 97.6 [degF] 97.6 [degF] [facility] ([facility] Respiratory rate 18 /min 18 /min [facility] ( [facility] [place] body weight 154 [lb_av] 154 [lb_av] MEDEN T ([facility] Body mass index (BMI) [Ratio] 27.1 kg/m2 27.1 k g/m2 [facility] ([facility] Systolic blood pressure 141 mm[Hg] 141 mm[Hg] [facility] Diastolic blood pressure 85 mm[Hg] 85 mm[Hg] [facility] Heart rate 91 /min 91 /min [facility] Body temperature 36.83 Kelley 36.83 Kelley [facility] Respiratory rate 18 /min 18 /min [facility] Oxygen saturation in Arterial blood by Pulse oximetry 96 % 96 % [facility] Body height 171.5 cm 171.5 cm [facility] Body weight 80.287 kg 80.287 kg [facility] Body mass index (BMI) [Ratio] 27.31 kg/m2 27.31 kg/m2 [facility] Systolic blood pressure 119 mm[Hg] 119 mm[Hg] [facility] Diastolic blood pressure 74 mm[Hg] 74 mm[Hg] [facility] Heart rate 79 /min 79 /min [facility] Body height 171.5 cm 171.5 cm [facility] Body weight 80.65 kg 80.65 kg [facility] Body mass index (BMI) [Ratio] 27.44 kg/m2 27.44 kg/m2 [facility] Oxygen saturation in Arterial blood by Pulse oximetry 94 % 94 % [facility] Systolic blood pressure 122 mm[Hg] 122 mm[Hg] M EDENT ([facility]) Diastolic blood pressure 76 mm[Hg] 76 mm[Hg] [facility] ([facility]) Body temperature 98.2 [degF] 98.2 [degF] [facility] ([facility]) Respiratory rate 18 /min 18 /min [facility] ( [facility]) Systolic blood pressure 122 mm[Hg] 122 mm[Hg] M EDENT ([facility]) sitting, regular cuff Diastolic blood pressure 68 mm[Hg] 68 mm[Hg] [facility] ([facility]) sitting, regular cuff Systolic blood pressure 122 mm[Hg] 122 mm[Hg] M EDENT ([facility]) sitting Diastolic blood pressure 64 mm[Hg] 64 mm[Hg] [facility] ([facility]) sitting Body mass index (BMI) [Ratio] 27.7 kg/m2 27.7 k g/m2 [facility] ([facility]) Heart rate 76 /min 76 /min [facility] ([facility]) Irregular Respiratory rate 16 /min 16 /min [facility] ( [facility]) Body height 67 [in_i] 67 [in_i] [facility] ([facility]) 5'7" Body weight 177.00 [lb_av] 177.00 [lb_av] MEDEN T ([facility]) Systolic blood pressure 121 mm[Hg] 121 mm[Hg] M EDENT ([facility]) Diastolic blood pressure 62 mm[Hg] 62 mm[Hg] [facility] ([facility]) Heart rate 67 /min 67 /min [facility] ([facility]) Body temperature 97.3 [degF] 97.3 [degF] [facility] ([facility]) Body height 67 [in_i] 67 [in_i] [facility] ([facility]) 5'7" Body weight 177.00 [lb_av] 177.00 [lb_av] MEDEN T ([facility]) Body mass index (BMI) [Ratio] 27.7 kg/m2 27.7 k g/m2 [facility] ([facility]) Respiratory rate 14 /min 14 /min [facility] ( [facility]) Body mass index (BMI) [Ratio] 27.7 kg/m2 27.7 k g/m2 [facility] ([facility] Systolic blood pressure 114 mm[Hg] 114 mm[Hg] M EDENT ([facility] Diastolic blood pressure 87 mm[Hg] 87 mm[Hg] [facility] ([facility] Heart rate 95 /min 95 /min [facility] ([facility] Body temperature 97.2 [degF] 97.2 [degF] [facility] ([facility] Respiratory rate 16 /min 16 /min [facility] ( [facility] Body height 68.0 [in_i] 68.0 [in_i] [facility] ([facility] 5'8" Body weight 182.50 [lb_av] 182.50 [lb_av] MEDEN T ([facility] Oxygen saturation in Arterial blood by Pulse oximetry 98 % 98 % [facility] ([facility] [place] body weight 154 [lb_av] 154 [lb_av] MEDEN T ([facility] Body temperature 96.9 [degF] 96.9 [degF] [facility] ([facility]) Body height 67.5 [in_i] 67.5 [in_i] [facility] ([facility] 5'7.50" Body weight 178.25 [lb_av] 178.25 [lb_av] MEDEN T ([facility] ) Body mass index (BMI) [Ratio] 27.5 kg/m2 27.5 k g/m2 [facility] ([facility]) Body surface area Derived from formula 1.92 m2 1.92 m2 [facility] ([facility]) Oxygen saturation in Arterial blood by Pulse oximetry 98 % 98 % [facility] ([facility]) Body temperature 96.8 [degF] 96.8 [degF] [facility]) Body height 67 [in_i] 67 [in_i] [facility] ([facility]) 5'7" Diastolic blood pressure 88 mm[Hg] 88 mm[Hg] [facility] ([facility]) Body weight 178.00 [lb_av] 178.00 [lb_av] MEDEN T ([facility]) Body mass index (BMI) [Ratio] 27.9 kg/m2 27.9 k g/m2 [facility] ([facility]) [place] body weight 148 [lb_av] 148 [lb_av] MEDEN T ([facility]) Body weight 80.741 kg 80.741 kg [facility] ([facility]) Systolic blood pressure 120 mm[Hg] 120 mm[Hg] M EDENT ([facility]) Heart rate 92 /min 92 /min [facility] ([facility]) Oxygen saturation in Arterial blood by Pulse oximetry 98 % 98 % [facility] ([facility]) Body temperature 96.8 [degF] 96.8 [degF] [facility] ([facility]) Body height 67 [in_i] 67 [in_i] [facility] ([facility]) 5'7" Body weight 178.00 [lb_av] 178.00 [lb_av] MEDEN T ([facility]) Body mass index (BMI) [Ratio] 27.9 kg/m2 27.9 k g/m2 [facility] ([facility]) [place] body weight 148 [lb_av] 148 [lb_av] [facility] Body weight 80.741 kg 80.741 kg [facility] ([facility]) Body surface area Derived from formula 1.92 m2 1.92 m2 [facility] ([facility]) Systolic blood pressure 117 mm[Hg] 117 mm[Hg] [facility] Diastolic blood pressure 91 mm[Hg] 91 mm[Hg] [facility] ([facility] Diastolic blood pressure 83 mm[Hg] 83 mm[Hg] [facility] ([facility] recheck Systolic blood pressure 114 mm[Hg] 114 mm[Hg] M EDENT ([facility] recheck Heart rate 75 /min 75 /min [facility] ([facility] Oxygen saturation in Arterial blood by Pulse oximetry 98 % 98 % [facility] ([facility] Body height 68.0 [in_i] 68.0 [in_i] [facility] ([facility] 5'8" Body temperature 97.3 [degF] 97.3 [degF] [facility] ([facility] Respiratory rate 16 /min 16 /min [facility] ( [facility] Body weight 180.31 [lb_av] 180.31 [lb_av] MEDEN T ([facility] [place] body weight 154 [lb_av] 154 [lb_av] MEDEN T ([facility] Body mass index (BMI) [Ratio] 27.4 kg/m2 27.4 k g/m2 [facility] ([facility] Respiratory rate 16 /min 16 /min MED[facility] ( [facility], ) Systolic blood pressure 120 mm[Hg] 120 mm[Hg] M EDENT ([facility], ) Diastolic blood pressure 80 mm[Hg] 80 mm[Hg] [facility] ([facility], ) Heart rate 84 /min 84 /min [facility] Patient Treatment Plan of Care Planned Activity Planned Date Details Description Data Source (s) sildenafil 100 MG Oral Tablet 06/14/2021 12:00:00 AM EDT eCW1 ([facility]) 24 HR Oxybutynin chloride 10 MG Extended Release Oral Tablet 06/14/2021 12:00:00 AM EDT eCW1 ([facility]) Acetaminophen 325 MG / Oxycodone Hydrochloride 5 MG Or al Tablet 02/22/2021 12:00:00 AM EDT [facility] apixaban 2.5 MG Oral Tablet 02/22/2021 12:00:00 AM EDT [facility] moxifloxacin 5 MG/ML Ophthalmic Solution 01/03/2021 12:00:00 AM EST MARY KAY (Abiodun Moore MD [facility]) BromSite 0.075% Ophthalmic Solution 01/03/2021 12:00:00 AM EST MARY KAY (Abiodun Moore MD [facility]) Inveltys 1% Ophthalmic Suspension 01/03/2021 12:00:00 AM EST MARY KAY (Abiodun Moore MD [facility]) Acetaminophen 500 MG Oral Tablet [facility] apixaban 5 MG Oral Tablet [facility]
--- NOTE | 2021-10-14 12:17 | ROOR ---
Patient Name: Zhou Dinh Procedure Date: 10/14/2021 11:56 AM Date of : 1950 Age: 71 Room: [facility] Gender: Male Note Status: Finalized Procedure: Upper Endoscopy + Biopsies + Balloon Dilatation Indications: Dysphagia, Heartburn, Failure to respond to medical treatment Providers: Anuj Chen MD Referring MD: Annmarie Gagnon NP Requesting Provider: Medicines: Monitored Anesthesia Care Complications: No immediate complications. Procedure: Pre-Anesthesia Assessment: - The heart rate, respiratory rate, oxygen saturations, blood pressure, adequacy of pulmonary ventilation, and response to care were monitored throughout the procedure. The Endoscope was introduced through the mouth, and advanced to the second part of duodenum. The upper GI endoscopy was accomplished without difficulty. The patient tolerated the procedure well. Findings: The Z-line was regular and was found 40 cm from the incisors. Multiple biopsies were obtained with cold forceps for evaluation to rule out Chavez's Esophagus randomly at the gastroesophageal junction. A small hiatal hernia was present. Multiple small sessile polyps with no stigmata of recent bleeding were found on the greater curvature of the stomach. Biopsies were taken with a cold forceps for histology. Biopsies were taken with a cold forceps in the gastric antrum for Helicobacter pylori testing. A TTS dilator was passed through the scope. Dilation with a 15-16.5-18 mm balloon dilator was performed to 18 mm in the entire esophagus. The exam was otherwise without abnormality. Impression: - Z-line regular, 40 cm from the incisors. - Small hiatal hernia. - Multiple gastric polyps. Biopsied. - The examination was otherwise normal. - Multiple biopsies were obtained at the gastroesophageal junction. - Biopsies were taken with a cold forceps for Helicobacter pylori testing. - Dilation performed in the entire esophagus. - The examination was otherwise normal. Recommendation: - Patient has a contact number available for emergencies. The signs and symptoms of potential delayed complications were discussed with the patient. Return to normal activities tomorrow. Written discharge instructions were provided to the patient. - High fiber diet. - Discharge patient to home. - Follow an antireflux regimen. - Continue present medications. - Await pathology results. - Telephone GI clinic for pathology results in 1 week. - Return to referring physician. - The findings and recommendations were discussed with the patient. Procedure Code(s): --- Professional --- 62190, Esophagogastroduodenoscopy, flexible, transoral; with transendoscopic balloon dilation of esophagus (less than 30 mm diameter) Diagnosis Code(s): --- Professional --- K44.9, Diaphragmatic hernia without obstruction or gangrene K31.7, Polyp of stomach and duodenum R13.10, Dysphagia, unspecified R12, Heartburn CPT copyright 2019 [employer]. All rights reserved. The codes documented in this report are preliminary and upon pipe welder review may be revised to meet current compliance requirements. Anuj Chen MD Anuj Chen MD 10/14/2021 12:17:28 PM Electronically signed by Anuj Chen MD Number of Addenda: 0 Note Initiated On: 10/14/2021 11:56 AM Estimated Blood Loss: Estimated blood loss: none.
[2021-10-14] MEDS ORDERED: propofoL 200 MG/20 ML VIAL As Ordered ONE (12:22)
[2021-10-14] MEDS ORDERED: LIDOCAINE 2% 100MG/5ML SDV (FOR ANES.) As Ordered ONE (12:22)
[2021-10-14] MEDS ORDERED: fentaNYL 100 MCG/2 ML INJECTION (J3010) As Ordered ONE (12:22)
[2021-10-14 12:35] VITALS: BP 136/82
== END 2021-10-14 12:37 | disposition home or self-care (01) ==
LOC: M OPP 10:00
PROVIDERS: ATTEND Internal Medicine Gastroenterology
DX: K31.7 Polyp of stomach and duodenum (principal); K44.9 Diaphragmatic hernia without obstruction or gangrene; R13.10 Dysphagia, unspecified; R12 Heartburn; E11.9 Type 2 diabetes mellitus without complications; I48.91 Unspecified atrial fibrillation; I10 Essential (primary) hypertension; J44.9 Chronic obstructive pulmonary disease, unspecified; R51.9 Headache, unspecified; N40.0 Benign prostatic hyperplasia without lower urinary tract symptoms; G47.30 Sleep apnea, unspecified; Z79.899 Other long term (current) drug therapy
CPT/HCPCS: 43249; 88305; J3010

== ENCOUNTER → 2021-11-01 | Outpatient (REF) | payer MEDICARE, BC, OTHER ==
[~2021-11-01] MED LIST changes: -NS 1,000 ML IV ONE
[2021-11-01 18:12] LABS: APPEARANCE, URINE CLEAR (CLEAR); BACTERIA, URINE AUTO NEGATIVE (NEGATIVE); BILIRUBIN, URINE AUTO NEGATIVE (NEGATIVE); BLOOD, URINE BLOOD NEGATIVE (NEGATIVE); COLOR, URINE YELLOW (YELLOW); GLUCOSE, URINE (UA) AUTO 3+ mg/dL (NEGATIVE); KETONE, URINE AUTO NEGATIVE (NEGATIVE); LEUKOCYTE ESTERASE, URINE AUTO NEGATIVE (NEGATIVE); NITRITE, URINE AUTO NEGATIVE (NEGATIVE); PROTEIN, URINE AUTO NEGATIVE (NEGATIVE); RBC, URINE AUTO 0 /HPF (0-3); SPECIFIC GRAVITY URINE AUTO 1.029 (1.002-1.035); SQUAMOUS EPITHELIAL CELL UR AU 0 /HPF (0-6); UROBILINOGEN, URINE AUTO 0.2 mg/dL (0.0-2.0); WBC, URINE AUTO 0 /HPF (0-3)
== END ==
LOC: M SMT 17:08
PROVIDERS: ATTEND Nurse Practitioner Women's Health
DX: R35.0 Frequency of micturition (principal)
CPT/HCPCS: 51798; 81001; 87086; G0463

== ENCOUNTER → 2021-12-24 | Outpatient (REF) | payer MEDICARE, OTHER ==
[~2021-12-24] MED LIST changes: +TIZA10TA PO; -TIZA4TAB4 PO
== END ==
LOC: M LABDRWAD 16:49
PROVIDERS: ATTEND Nurse Practitioner Family
DX: E11.40 Type 2 diabetes mellitus with diabetic neuropathy, unspecified (principal)

== ENCOUNTER → 2022-02-04 | Outpatient (CLI) | payer MEDICARE, BC, OTHER | LOC: M RAD 10:36 | PROVIDERS: ATTEND Nurse Practitioner Family | DX: R22.32 Localized swelling, mass and lump, left upper limb (principal) ==

== ENCOUNTER → 2022-02-11 | Outpatient (REF) | payer MEDICARE, BC, OTHER ==
[2022-02-11 13:39] LABS: BLOOD UREA NITROGEN 14 MG/DL (7-18); CREATININE FOR GFR 0.82 MG/DL (0.70-1.30); GLOMERULAR FILTRATION RATE > 60.0 (>49)
== END ==
LOC: M LABDRWAD 12:25
PROVIDERS: ATTEND Nurse Practitioner Family
DX: Z01.812 Encounter for preprocedural laboratory examination (principal); E78.5 Hyperlipidemia, unspecified; E11.40 Type 2 diabetes mellitus with diabetic neuropathy, unspecified

== ENCOUNTER → 2022-02-11 | Outpatient (REF) | payer MEDICARE, BC, OTHER | LOC: M SMT 12:54 | PROVIDERS: ATTEND Urology | DX: Z01.812 Encounter for preprocedural laboratory examination (principal); E78.5 Hyperlipidemia, unspecified; E11.40 Type 2 diabetes mellitus with diabetic neuropathy, unspecified; Z12.5 Encounter for screening for malignant neoplasm of prostate | CPT/HCPCS: 36415; 82565; 84520; G0103 ==

== ENCOUNTER → 2022-03-12 | Outpatient (CLI) | payer MEDICARE, BC, OTHER ==
[~2022-03-12] MED LIST changes: +PROHANCE 279.3MG/ML 15ML VIAL As Ordered ONE
== END ==
LOC: M RAD 12:36
PROVIDERS: ATTEND Nurse Practitioner Family
DX: R22.32 Localized swelling, mass and lump, left upper limb (principal)
CPT/HCPCS: 73220; A9576

== ENCOUNTER 2022-05-12 06:20 | Emergency (ER) | payer MEDICARE, BC, OTHER ==
[~2022-05-12] VITALS: Ht 170.2 cm; Wt 75.4 kg
[~2022-05-12 06:20] MED LIST changes: -PROHANCE 279.3MG/ML 15ML VIAL As Ordered ONE
[2022-05-12 07:35] LABS: BASO # 0.1 10^3/uL (0.0-0.2); BASO % 0.4 % (0.0-1.0); EOS # 0.1 10^3/uL (0.0-0.5); EOS % 0.5 % (0.0-3.0); HEMOGLOBIN 15.9 g/dl (13.5-17.5); LYMPH # 1.1 10^3/uL (1.5-5.0); LYMPH % 7.5 % (24.0-44.0); MEAN CORPUSCULAR HEMOGLOBIN 29.6 pg (27.0-33.0); MEAN CORPUSCULAR HGB CONC 33.8 g/dl (32.0-36.5); MEAN CORPUSCULAR VOLUME 87.5 fl (80.0-96.0); MONO # 0.9 10^3/uL (0.0-0.8); MONO % 6.6 % (2.0-8.0); NEUTROPHILS % 84.4 % (36.0-66.0); PLATELET COUNT, AUTOMATED 285 10^3/uL (150-450); RED BLOOD COUNT 5.37 10^6/uL (4.30-6.10); WHITE BLOOD COUNT 14.2 10^3/uL (4.0-10.0)
[2022-05-12] MEDS ORDERED: DOXYCYCLINE HYCLATE 100MG TABLET PO ONE (07:45)
[2022-05-12] MEDS ORDERED: KETOROLAC 30 MG/ML 1ML VIAL IV ONE (07:55)
[2022-05-12 07:56] LABS: BLOOD UREA NITROGEN 15 MG/DL (7-18); C REACTIVE PROTEIN QUANTITATIV 1.93 MG/DL (0.00-0.30); CALCIUM LEVEL 9.1 MG/DL (8.8-10.2); CARBON DIOXIDE LEVEL 28 MEQ/L (21-32); CHLORIDE LEVEL 103 MEQ/L (98-107); CREATININE FOR GFR 0.88 MG/DL (0.70-1.30); GLOMERULAR FILTRATION RATE > 60.0 (>42); GLUCOSE, FASTING 168 MG/DL (70-100); SODIUM LEVEL 138 MEQ/L (136-145)
[2022-05-12 08:00] LABS: CK-MB VALUE MASS 1.4 NG/ML (<3.6); MB/CK RELATIVE INDEX 2.98 (< OR =4)
[2022-05-12 08:01] LABS: ERYTHROCYTE SEDIMENTATION RATE 19 mm/hr (0-20)
[2022-05-12 08:48] LABS: CK-MB VALUE MASS 1.4 NG/ML (<3.6); MB/CK RELATIVE INDEX 3.11 (< OR =4)
[2022-05-12] MEDS ORDERED: AMOX500C PO ×2 (10:11→10:17)
[2022-05-12 10:30] VITALS: BP 145/82
[2022-05-12] MEDS ORDERED: HYDR-3713 PO (18:02)
== END 2022-05-12 10:32 | disposition home or self-care (01) ==
LOC: M ED 06:20
DX: A69.20 Lyme disease, unspecified (principal); I10 Essential (primary) hypertension; E11.9 Type 2 diabetes mellitus without complications; I50.9 Heart failure, unspecified; I48.91 Unspecified atrial fibrillation; E78.5 Hyperlipidemia, unspecified; N40.0 Benign prostatic hyperplasia without lower urinary tract symptoms; Z79.899 Other long term (current) drug therapy; Z79.01 Long term (current) use of anticoagulants; Z79.84 Long term (current) use of oral hypoglycemic drugs
CPT/HCPCS: 71045; 80048; 80162; 82550; 82553; 84484; 85025; 85652; 86140; 86618; 93005; 93041; 94760; 96374; 99285; J1885

== ENCOUNTER → 2022-05-16 | Outpatient (CLI) | payer MEDICARE, BC, OTHER ==
[~2022-05-16] MED LIST changes: +AMOX500C PO; +HYDR-3713 PO
[2022-05-20 01:07] LABS: PSA % FREE 13.3 % (.); PSA FREE 0.77 ng/mL; PSA TOTAL 5.8 ng/mL (0.0-4.0)
== END ==
LOC: M LAB 11:09
PROVIDERS: ATTEND Urology
DX: R97.20 Elevated prostate specific antigen [PSA] (principal)

== ENCOUNTER → 2022-06-20 | Outpatient (CLI) | payer MEDICARE, BC, OTHER ==
[2022-06-20 13:06] LABS: BASO % 0.5 % (0.0-1.0); EOS # 0.1 10^3/uL (0.0-0.5); EOS % 1.5 % (0.0-3.0); HEMATOCRIT 48.1 % (42.0-52.0); HEMOGLOBIN 16.4 g/dl (13.5-17.5); LYMPH # 1.9 10^3/uL (1.5-5.0); LYMPH % 21.6 % (24.0-44.0); MEAN CORPUSCULAR HEMOGLOBIN 29.6 pg (27.0-33.0); MEAN CORPUSCULAR HGB CONC 34.1 g/dl (32.0-36.5); MEAN CORPUSCULAR VOLUME 86.8 fl (80.0-96.0); MONO # 0.6 10^3/uL (0.0-0.8); MONO % 6.8 % (2.0-8.0); NEUTROPHILS % 68.8 % (36.0-66.0); PLATELET COUNT, AUTOMATED 241 10^3/uL (150-450); RED BLOOD COUNT 5.54 10^6/uL (4.30-6.10); WHITE BLOOD COUNT 8.7 10^3/uL (4.0-10.0)
[2022-06-20 13:36] LABS: BLOOD UREA NITROGEN 13 MG/DL (7-18); CALCIUM LEVEL 9.7 MG/DL (8.8-10.2); CARBON DIOXIDE LEVEL 32 MEQ/L (21-32); CHLORIDE LEVEL 102 MEQ/L (98-107); CREATININE FOR GFR 0.77 MG/DL (0.70-1.30); GLOMERULAR FILTRATION RATE > 60.0 (>42); GLUCOSE, FASTING 130 MG/DL (70-100); POTASSIUM SERUM 4.1 MEQ/L (3.5-5.1); SODIUM LEVEL 140 MEQ/L (136-145)
[2022-06-20 13:37] LABS: ALBUMIN 4.2 GM/DL (3.2-5.2); ALT/SGPT 28 U/L (12-78); BILIRUBIN,TOTAL 0.8 MG/DL (0.2-1.0); CHOLESTEROL LEVEL 217 MG/DL (<200); HDL CHOLESTEROL 62 MG/DL (>40); LDL CHOLESTEROL 83 MG/DL (<100); NON-HDL-C 155 MG/DL; TOTAL PROTEIN 8.1 GM/DL (6.4-8.2); TRIGLYCERIDES LEVEL 358 MG/DL (<150)
[2022-06-20 14:04] LABS: CREATININE, URINE 75.4 MG/DL; MALB URINE SIEMENS < 5.0 MG/L; MAU/CREAT RATIO 6.6 MCG/MG (0.0-30.0)
[2022-06-20 14:35] LABS: HEMOGLOBIN A1c 6.9 %
== END ==
LOC: M LAB 12:19
PROVIDERS: ATTEND Nurse Practitioner Family
DX: A69.20 Lyme disease, unspecified (principal); E11.40 Type 2 diabetes mellitus with diabetic neuropathy, unspecified; E78.5 Hyperlipidemia, unspecified; R97.20 Elevated prostate specific antigen [PSA]; Z80.42 Family history of malignant neoplasm of prostate; Z79.899 Other long term (current) drug therapy

== ENCOUNTER → 2022-06-20 | Outpatient (CLI) | payer MEDICARE, BC, OTHER ==
[2022-06-20 13:06] LABS: HEMATOCRIT 47.8 % (42.0-52.0); HEMOGLOBIN 16.6 g/dl (13.5-17.5); MEAN CORPUSCULAR HEMOGLOBIN 30.3 pg (27.0-33.0); MEAN CORPUSCULAR HGB CONC 34.7 g/dl (32.0-36.5); MEAN CORPUSCULAR VOLUME 87.4 fl (80.0-96.0); PLATELET COUNT, AUTOMATED 250 10^3/uL (150-450); RED BLOOD COUNT 5.47 10^6/uL (4.30-6.10); WHITE BLOOD COUNT 8.9 10^3/uL (4.0-10.0)
[2022-06-20 13:21] LABS: PROTHROMBIN TIME 13.6 SECONDS (12.7-14.5)
[2022-06-20 13:42] LABS: ALT/SGPT 27 U/L (12-78); BILIRUBIN,TOTAL 0.8 MG/DL (0.2-1.0); BLOOD UREA NITROGEN 13 MG/DL (7-18); CALCIUM LEVEL 9.6 MG/DL (8.8-10.2); CARBON DIOXIDE LEVEL 33 MEQ/L (21-32); CHLORIDE LEVEL 103 MEQ/L (98-107); CREATININE FOR GFR 0.76 MG/DL (0.70-1.30); GLOMERULAR FILTRATION RATE > 60.0 (>42); GLUCOSE, FASTING 133 MG/DL (70-100); POTASSIUM SERUM 4.6 MEQ/L (3.5-5.1); SODIUM LEVEL 139 MEQ/L (136-145); TOTAL PROTEIN 7.8 GM/DL (6.4-8.2)
== END ==
LOC: M RAD 12:17
PROVIDERS: ATTEND Urology
DX: R97.20 Elevated prostate specific antigen [PSA] (principal)

== ENCOUNTER → 2022-06-25 | Outpatient (CLI) | payer MEDICARE, BC, OTHER | LOC: M LABSMTC 11:16 | PROVIDERS: ATTEND Anesthesiology | DX: Z11.52 Encounter for screening for COVID-19 (principal) ==

== ENCOUNTER 2022-06-30 07:53 | Day surgery (SDC) | payer MEDICARE, BC, OTHER ==
[~2022-06-30] VITALS: Ht 172.7 cm; Wt 76.2 kg
[~2022-06-30 07:53] MED LIST changes: +cefTRIAXone SOD 1 GM in D5W MINI-BAG PLUS 50 ML IV ONE
[2022-06-30] MEDS ORDERED: LR 1,000 ML IV SCH (08:20)
[2022-06-30] MEDS ORDERED: CEPH500C PO ×2 (08:48→10:04)
[2022-06-30] MEDS ORDERED: propofoL 200 MG/20 ML VIAL As Ordered ONE (08:59)
[2022-06-30] MEDS ORDERED: LIDOCAINE 2% 100MG/5ML SDV (FOR ANES.) As Ordered ONE (08:59)
[2022-06-30] MEDS ORDERED: fentaNYL 100 MCG/2 ML INJECTION As Ordered ONE (09:00)
[2022-06-30] MEDS ORDERED: MIDAZOLAM INJ 2MG/2ML VIAL (J2250 PER 1MG) As Ordered ONE (09:00)
[2022-06-30] MEDS ORDERED: LIDOCAINE 1% SDV 30ML VIAL As Ordered ONE (09:21)
[2022-06-30] MEDS ORDERED: BUPIVACAINE HCL 0.25% 30ML VIAL As Ordered ONE (09:21)
[2022-06-30 10:42] VITALS: BP 132/60
== END 2022-06-30 10:47 | disposition home or self-care (01) ==
LOC: M SDC 07:53
PROVIDERS: ATTEND Urology
DX: R97.20 Elevated prostate specific antigen [PSA] (principal)
CPT/HCPCS: 55700; 76872; G0416; J0696; J2250; J3010

== ENCOUNTER → 2022-09-15 | Outpatient (CLI) | payer MEDICARE, BC, OTHER ==
[~2022-09-15] MED LIST changes: +CEPH500C PO; -cefTRIAXone SOD 1 GM in D5W MINI-BAG PLUS 50 ML IV ONE
[2022-09-15 14:42] LABS: HEMOGLOBIN A1c 6.8 %
== END ==
LOC: M LABDRWAD 08:56
PROVIDERS: ATTEND Nurse Practitioner Family
DX: E11.40 Type 2 diabetes mellitus with diabetic neuropathy, unspecified (principal)

== ENCOUNTER → 2022-12-25 | Outpatient (REF) | payer MEDICARE, OTHER ==
[2022-12-25 16:36] LABS: ALBUMIN 3.9 G/DL (3.2-5.2); BILIRUBIN,DIRECT 0.3 MG/DL (<0.4); BILIRUBIN,TOTAL 0.9 MG/DL (0.3-1.2); CHOLESTEROL RISK RATIO 3.51 (<5); HDL CHOLESTEROL 46.1 MG/DL (>40); LDL CHOLESTEROL 73.1 MG/DL (<100)
== END ==
LOC: M LABDRWAD 16:17
PROVIDERS: ATTEND Physician Assistant
DX: E78.00 Pure hypercholesterolemia, unspecified (principal)

== ENCOUNTER → 2023-01-08 | Outpatient (REF) | payer MEDICARE, OTHER | LOC: M SFHCADAM 15:16 | PROVIDERS: ATTEND Urology | DX: Z53.9 Procedure and treatment not carried out, unspecified reason (principal) ==

== ENCOUNTER → 2023-01-09 | Outpatient (REF) | payer MEDICARE, OTHER | LOC: M SFHCADAM 13:57 | PROVIDERS: ATTEND Urology | DX: R97.20 Elevated prostate specific antigen [PSA] (principal) ==

== ENCOUNTER → 2023-04-01 | Outpatient (REF) | payer MEDICARE, OTHER ==
[2023-04-01 16:36] LABS: HEMOGLOBIN 16.5 g/dl (13.5-17.5); MEAN CORPUSCULAR HEMOGLOBIN 30.8 pg (27.0-33.0); MEAN CORPUSCULAR HGB CONC 34.4 g/dl (32.0-36.5); MEAN CORPUSCULAR VOLUME 89.7 fl (80.0-96.0); PLATELET COUNT, AUTOMATED 218 10^3/uL (150-450); RED BLOOD COUNT 5.35 10^6/uL (4.30-6.10); WHITE BLOOD COUNT 8.9 10^3/uL (4.0-10.0)
[2023-04-01 16:58] LABS: ALBUMIN 3.8 G/DL (3.2-5.2); ALKALINE PHOSPHATASE 85 U/L (46-116); ALT/SGPT 14 U/L (7.0-40); AST/SGOT 19 U/L (<34); BILIRUBIN,TOTAL 0.6 MG/DL (0.3-1.2); BLOOD UREA NITROGEN 17 MG/DL (9-23); CALCIUM LEVEL 8.9 MG/DL (8.3-10.6); CARBON DIOXIDE LEVEL 31 MMOL/L (20-31); CHLORIDE LEVEL 103 MMOL/L (98-107); CREATININE FOR GFR 0.74 MG/DL (0.70-1.30); GLOMERULAR FILTRATION RATE > 60.0 (>42); GLUCOSE, FASTING 95 MG/DL (74-106); SODIUM LEVEL 140 MMOL/L (136-145); TOTAL PROTEIN 6.7 G/DL (5.7-8.2)
[2023-04-01 17:05] LABS: THYROID STIMULATING HORMONE 1.298 uIU/ML (0.55-4.78)
== END ==
LOC: M LABDRWAD 16:09
PROVIDERS: ATTEND Physician Assistant
DX: I48.21 Permanent atrial fibrillation (principal); I11.9 Hypertensive heart disease without heart failure

== ENCOUNTER → 2023-08-11 | Outpatient (REF) | payer MEDICARE, OTHER ==
[2023-08-11 15:41] LABS: BASO % 0.5 % (0.0-1.0); EOS # 0.2 10^3/uL (0.0-0.5); EOS % 2.3 % (0.0-3.0); HEMATOCRIT 50.5 % (42.0-52.0); HEMOGLOBIN 17.1 g/dl (13.5-17.5); LYMPH # 1.8 10^3/uL (1.5-5.0); LYMPH % 20.8 % (24.0-44.0); MEAN CORPUSCULAR HEMOGLOBIN 30.9 pg (27.0-33.0); MEAN CORPUSCULAR HGB CONC 33.9 g/dl (32.0-36.5); MEAN CORPUSCULAR VOLUME 91.3 fl (80.0-96.0); MONO # 0.7 10^3/uL (0.0-0.8); MONO % 7.3 % (2.0-8.0); NEUTROPHILS # 6.1 10^3/uL (1.5-8.5); NEUTROPHILS % 68.4 % (36.0-66.0); PLATELET COUNT, AUTOMATED 215 10^3/uL (150-450); RED BLOOD COUNT 5.53 10^6/uL (4.30-6.10); WHITE BLOOD COUNT 8.9 10^3/uL (4.0-10.0)
[2023-08-11 15:55] LABS: MALB URINE SIEMENS < 3.0 MG/L; MAU/CREAT RATIO 6.8 MCG/MG (0.0-30.0)
[2023-08-11 16:00] LABS: ALBUMIN 3.7 G/DL (3.2-5.2); ALKALINE PHOSPHATASE 95 U/L (46-116); ALT/SGPT 20 U/L (7.0-40); AST/SGOT 19 U/L (<34); BILIRUBIN,TOTAL 0.8 MG/DL (0.3-1.2); BLOOD UREA NITROGEN 16 MG/DL (9-23); CARBON DIOXIDE LEVEL 29 MMOL/L (20-31); CHLORIDE LEVEL 101 MMOL/L (98-107); CHOLESTEROL LEVEL 166 MG/DL (<200); CHOLESTEROL RISK RATIO 3.92 (<5); CREATININE FOR GFR 0.81 MG/DL (0.70-1.30); GLOMERULAR FILTRATION RATE > 60.0 (>42); GLUCOSE, FASTING 234 MG/DL (74-106); HDL CHOLESTEROL 42.3 MG/DL (>40); LDL CHOLESTEROL 52.9 MG/DL (<100); NON-HDL-C 123.7 MG/DL; POTASSIUM SERUM 4.5 MMOL/L (3.5-5.1); SODIUM LEVEL 138 MMOL/L (136-145); TOTAL PROTEIN 6.5 G/DL (5.7-8.2); TRIGLYCERIDES LEVEL 354 MG/DL (<150)
[2023-08-11 17:42] LABS: HEMOGLOBIN A1c 6.6 % (4.0-6.0)
== END ==
LOC: M LABDRWAD 12:42
PROVIDERS: ATTEND Nurse Practitioner Family
DX: I10 Essential (primary) hypertension (principal); I48.20 Chronic atrial fibrillation, unspecified; E78.5 Hyperlipidemia, unspecified; E11.40 Type 2 diabetes mellitus with diabetic neuropathy, unspecified

== ENCOUNTER → 2023-11-13 | Outpatient (CLI) | payer MEDICARE, BC, OTHER | LOC: M RAD 13:31 | PROVIDERS: ATTEND Internal Medicine Pulmonary Disease | DX: Z12.2 Encounter for screening for malignant neoplasm of respiratory organs (principal); F17.218 Nicotine dependence, cigarettes, with other nicotine-induced disorders ==

== ENCOUNTER → 2023-12-31 | Outpatient (REF) | payer MEDICARE, OTHER ==
[2023-12-31 14:16] LABS: ALBUMIN 3.4 G/DL (3.2-5.2); ALKALINE PHOSPHATASE 101 U/L (46-116); ALT/SGPT 15 U/L (7.0-40); AST/SGOT 12 U/L (<34); BILIRUBIN,TOTAL 0.9 MG/DL (0.3-1.2); BLOOD UREA NITROGEN 14 MG/DL (9-23); CALCIUM LEVEL 8.6 MG/DL (8.3-10.6); CARBON DIOXIDE LEVEL 31 MMOL/L (20-31); CHLORIDE LEVEL 102 MMOL/L (98-107); CHOLESTEROL LEVEL 163 MG/DL (<200); CHOLESTEROL RISK RATIO 3.67 (<5); CREATININE FOR GFR 0.74 MG/DL (0.70-1.30); GLOMERULAR FILTRATION RATE > 60.0 (>42); GLUCOSE, FASTING 197 MG/DL (74-106); HDL CHOLESTEROL 44.3 MG/DL (>40); LDL CHOLESTEROL 78.1 MG/DL (<100); MAGNESIUM LEVEL 1.7 MG/DL (1.8-2.4); NON-HDL-C 118.7 MG/DL; POTASSIUM SERUM 4.3 MMOL/L (3.5-5.1); SODIUM LEVEL 139 MMOL/L (136-145); TOTAL PROTEIN 6.4 G/DL (5.7-8.2); TRIGLYCERIDES LEVEL 203 MG/DL (<150)
[2023-12-31 14:22] LABS: HEMATOCRIT 49.3 % (42.0-52.0); HEMOGLOBIN 16.4 g/dl (13.5-17.5); MEAN CORPUSCULAR HEMOGLOBIN 30.1 pg (27.0-33.0); MEAN CORPUSCULAR HGB CONC 33.3 g/dl (32.0-36.5); MEAN CORPUSCULAR VOLUME 90.5 fl (80.0-96.0); PLATELET COUNT, AUTOMATED 232 10^3/uL (150-450); RED BLOOD COUNT 5.45 10^6/uL (4.30-6.10); WHITE BLOOD COUNT 9.4 10^3/uL (4.0-10.0)
== END ==
LOC: M LABDRWAD 12:54
PROVIDERS: ATTEND Physician Assistant
DX: I48.21 Permanent atrial fibrillation (principal); I11.9 Hypertensive heart disease without heart failure; E78.00 Pure hypercholesterolemia, unspecified

== ENCOUNTER → 2024-01-14 | Outpatient (REF) | payer MEDICARE, OTHER ==
[2024-01-18 23:26] LABS: PSA TOTAL 3.5 ng/mL (0.0-4.0)
== END ==
LOC: M SFHCADAM 13:51
PROVIDERS: ATTEND Urology
DX: N40.1 Benign prostatic hyperplasia with lower urinary tract symptoms (principal); Z87.898 Personal history of other specified conditions; Z80.42 Family history of malignant neoplasm of prostate

== ENCOUNTER → 2024-02-22 | Outpatient (REF) | payer MEDICARE, OTHER, BC ==
[2024-02-22 14:44] LABS: HEMOGLOBIN A1c 7.7 % (4.0-6.0)
== END ==
LOC: M LABDRWAD 12:59
PROVIDERS: ATTEND Nurse Practitioner Family
DX: E11.40 Type 2 diabetes mellitus with diabetic neuropathy, unspecified (principal)

== ENCOUNTER → 2024-07-04 | Outpatient (REF) | payer MEDICARE, OTHER ==
[2024-07-04 18:23] LABS: HEMATOCRIT 50.2 % (42.0-52.0); HEMOGLOBIN 16.8 g/dl (13.5-17.5); MEAN CORPUSCULAR HEMOGLOBIN 31.1 pg (27.0-33.0); MEAN CORPUSCULAR HGB CONC 33.5 g/dl (32.0-36.5); MEAN CORPUSCULAR VOLUME 92.8 fl (80.0-96.0); PLATELET COUNT, AUTOMATED 200 10^3/uL (150-450); RED BLOOD COUNT 5.41 10^6/uL (4.30-6.10); WHITE BLOOD COUNT 9.1 10^3/uL (4.0-10.0)
[2024-07-04 18:24] LABS: BLOOD UREA NITROGEN 12 MG/DL (9-23); CARBON DIOXIDE LEVEL 33 MMOL/L (20-31); CHLORIDE LEVEL 106 MMOL/L (98-107); CREATININE FOR GFR 0.77 MG/DL (0.70-1.30); GLOMERULAR FILTRATION RATE > 60.0 (>42); GLUCOSE, FASTING 128 MG/DL (74-106); MAGNESIUM LEVEL 1.9 MG/DL (1.8-2.4); POTASSIUM SERUM 4.5 MMOL/L (3.5-5.1); SODIUM LEVEL 141 MMOL/L (136-145)
== END ==
LOC: M LABDRWAD 17:19
PROVIDERS: ATTEND Physician Assistant
DX: I48.21 Permanent atrial fibrillation (principal); Z79.899 Other long term (current) drug therapy

== ENCOUNTER → 2024-08-18 | Outpatient (REF) | payer MEDICARE, OTHER ==
[~2024-08-18] MED LIST changes: +GABA-1490 PO; -GABA600T4 PO
[2024-08-18 14:13] LABS: HEMOGLOBIN A1c 7.4 % (4.0-6.0)
== END ==
LOC: M LABDRWAD 12:36
PROVIDERS: ATTEND Nurse Practitioner Family
DX: E11.40 Type 2 diabetes mellitus with diabetic neuropathy, unspecified (principal)

== ENCOUNTER → 2024-12-16 | Outpatient (CLI) | payer MEDICARE, BC | LOC: M RAD 09:18 | PROVIDERS: ATTEND Internal Medicine Pulmonary Disease | DX: Z12.2 Encounter for screening for malignant neoplasm of respiratory organs (principal); F17.218 Nicotine dependence, cigarettes, with other nicotine-induced disorders ==

== ENCOUNTER → 2024-12-28 | Outpatient (REF) | payer MEDICARE, BC, OTHER ==
[2024-12-28 14:59] LABS: ALBUMIN 3.6 G/DL (3.2-5.2); ALKALINE PHOSPHATASE 82 U/L (40-129); ALT/SGPT 17 U/L (7.0-40); AST/SGOT 15 U/L (<34); BLOOD UREA NITROGEN 19 MG/DL (9-23); CALCIUM LEVEL 9.1 MG/DL (8.3-10.6); CARBON DIOXIDE LEVEL 30 MMOL/L (20-31); CHLORIDE LEVEL 101 MMOL/L (98-107); CHOLESTEROL LEVEL 183 MG/DL (<200); CHOLESTEROL RISK RATIO 3.71 (<5); CREATININE FOR GFR 0.75 MG/DL (0.70-1.30); GLOMERULAR FILTRATION RATE > 60.0 (>42); GLUCOSE, FASTING 284 MG/DL (74-106); HDL CHOLESTEROL 49.2 MG/DL (>40); LDL CHOLESTEROL 90.6 MG/DL (<100); MAGNESIUM LEVEL 1.6 MG/DL (1.8-2.4); NON-HDL-C 133.8 MG/DL; SODIUM LEVEL 140 MMOL/L (136-145); TOTAL PROTEIN 6.7 G/DL (5.7-8.2); TRIGLYCERIDES LEVEL 216 MG/DL (<150)
[2024-12-28 15:07] LABS: HEMATOCRIT 48.1 % (42.0-52.0); MEAN CORPUSCULAR HEMOGLOBIN 29.9 pg (27.0-33.0); MEAN CORPUSCULAR HGB CONC 33.3 g/dl (32.0-36.5); MEAN CORPUSCULAR VOLUME 89.9 fl (80.0-96.0); PLATELET COUNT, AUTOMATED 200 10^3/uL (150-450); RED BLOOD COUNT 5.35 10^6/uL (4.30-6.10); WHITE BLOOD COUNT 9.1 10^3/uL (4.0-10.0)
== END ==
LOC: M LABDRWAD 13:04
PROVIDERS: ATTEND Nurse Practitioner Family
DX: I48.21 Permanent atrial fibrillation (principal); I11.9 Hypertensive heart disease without heart failure; E78.00 Pure hypercholesterolemia, unspecified

== ENCOUNTER → 2025-02-14 | Outpatient (REF) | payer MEDICARE, OTHER | LOC: M LABDRWAD 17:22 | PROVIDERS: ATTEND Urology | DX: Z87.898 Personal history of other specified conditions (principal); Z12.5 Encounter for screening for malignant neoplasm of prostate | CPT/HCPCS: 36415; G0103 ==

== ENCOUNTER → 2025-02-15 | Outpatient (CLI) | payer MEDICARE, BC ==
[~2025-02-15] MED LIST changes: -FLOM0.4C39 PO; +TAMS-18 PO
== END ==
LOC: M CARPUL 09:45
PROVIDERS: ATTEND Physician Assistant
DX: I34.0 Nonrheumatic mitral (valve) insufficiency (principal); I35.1 Nonrheumatic aortic (valve) insufficiency; I77.810 Thoracic aortic ectasia
CPT/HCPCS: 93306; G0463

== ENCOUNTER → 2025-02-23 | Outpatient (REF) | payer MEDICARE, BC ==
[~2025-02-23] MED LIST changes: +FLOM0.4C39 PO; -TAMS-18 PO
[2025-02-23 18:22] LABS: BASO % 0.3 % (0.0-1.0); EOS # 0.1 10^3/uL (0.0-0.5); EOS % 1.3 % (0.0-3.0); HEMATOCRIT 48.4 % (42.0-52.0); HEMOGLOBIN 16.5 g/dl (13.5-17.5); LYMPH # 2.1 10^3/uL (1.5-5.0); LYMPH % 24.6 % (24.0-44.0); MEAN CORPUSCULAR HEMOGLOBIN 30.6 pg (27.0-33.0); MEAN CORPUSCULAR HGB CONC 34.1 g/dl (32.0-36.5); MEAN CORPUSCULAR VOLUME 89.6 fl (80.0-96.0); MONO # 0.7 10^3/uL (0.0-0.8); MONO % 7.8 % (2.0-8.0); NEUTROPHILS # 5.6 10^3/uL (1.5-8.5); NEUTROPHILS % 65.3 % (36.0-66.0); PLATELET COUNT, AUTOMATED 206 10^3/uL (150-450); WHITE BLOOD COUNT 8.6 10^3/uL (4.0-10.0)
[2025-02-23 18:46] LABS: ALBUMIN 3.6 G/DL (3.2-5.2); ALKALINE PHOSPHATASE 87 U/L (40-129); ALT/SGPT 23 U/L (7.0-40); AST/SGOT 19 U/L (<34); BILIRUBIN,TOTAL 0.8 MG/DL (0.3-1.2); BLOOD UREA NITROGEN 15 MG/DL (9-23); CALCIUM LEVEL 8.9 MG/DL (8.3-10.6); CARBON DIOXIDE LEVEL 31 MMOL/L (20-31); CHLORIDE LEVEL 102 MMOL/L (98-107); CHOLESTEROL LEVEL 186 MG/DL (<200); CREATININE FOR GFR 0.95 MG/DL (0.70-1.30); GLOMERULAR FILTRATION RATE > 60.0 (>42); GLUCOSE, FASTING 253 MG/DL (74-106); HDL CHOLESTEROL 46.4 MG/DL (>40); NON-HDL-C 139.6 MG/DL; POTASSIUM SERUM 4.7 MMOL/L (3.5-5.1); SODIUM LEVEL 140 MMOL/L (136-145); TOTAL PROTEIN 6.6 G/DL (5.7-8.2); TRIGLYCERIDES LEVEL 425 MG/DL (<150)
[2025-02-23 18:52] LABS: HEMOGLOBIN A1c 8.4 % (4.0-6.0)
== END ==
LOC: M LABDRWAD 17:40
PROVIDERS: ATTEND Nurse Practitioner Family
DX: I10 Essential (primary) hypertension (principal); E78.5 Hyperlipidemia, unspecified; E11.40 Type 2 diabetes mellitus with diabetic neuropathy, unspecified

== ENCOUNTER → 2025-08-22 | Outpatient (REF) | payer MEDICARE, BC ==
[~2025-08-22] MED LIST changes: -FLOM0.4C39 PO; +TAMS-18 PO
== END ==
LOC: M LABDRWAD 12:58
PROVIDERS: ATTEND Physician Assistant
DX: I48.21 Permanent atrial fibrillation (principal)

== ENCOUNTER → 2025-09-14 | Outpatient (CLI) | payer MEDICARE, BC | LOC: M RAD 13:48 | PROVIDERS: ATTEND Nurse Practitioner Family | DX: I70.201 Unspecified atherosclerosis of native arteries of extremities, right leg (principal) ==

== ENCOUNTER → 2025-10-17 | Outpatient (CLI) | payer MEDICARE, BC ==
[2025-10-17 13:41] LABS: ESTIMATED AVERAGE GLUCOSE 177.0 MG/DL (60-110)
== END ==
LOC: M PLAIMG 11:13
PROVIDERS: ATTEND Nurse Practitioner Family
DX: E11.40 Type 2 diabetes mellitus with diabetic neuropathy, unspecified (principal); R05.9 Cough, unspecified

== ENCOUNTER → 2025-11-20 | Outpatient (REF) | payer MEDICARE, BC ==
[2025-11-20 14:16] LABS: CREATININE FOR GFR 0.81 MG/DL (0.70-1.30); GLOMERULAR FILTRATION RATE > 90.0 (>42)
== END ==
LOC: M LABDRWAD 13:12
PROVIDERS: ATTEND Physician Assistant
DX: I70.213 Atherosclerosis of native arteries of extremities with intermittent claudication, bilateral legs (principal)

== ENCOUNTER → 2025-11-22 | Outpatient (CLI) | payer MEDICARE, BC ==
[~2025-11-22] MED LIST changes: +ISOVUE-370 76% 100 ML VIAL As Ordered ONE
== END ==
LOC: M RAD 09:36
PROVIDERS: ATTEND Physician Assistant
DX: I70.213 Atherosclerosis of native arteries of extremities with intermittent claudication, bilateral legs (principal); N40.0 Benign prostatic hyperplasia without lower urinary tract symptoms
CPT/HCPCS: 75635; Q9967